=== PATIENT | female | born 1945 | race Caucasian/White ===

== ENCOUNTER 2018-05-06 12:30 | Emergency (ER) | payer MEDICARE ==
--- NOTE | 2018-05-06 14:17 | CT ---
NONCONTRAST CT HEAD: 05/06/2018 HISTORY: Headache. Patient recently placed on Eliquis. COMPARISON: None available. FINDINGS: There is no evidence of a hemorrhage, acute infarction, mass effect, or midline shift. The ventricul ar system is normal in size, shape, and position. There is mild cerebral volume loss, not unexpected for the patient's age. The visualized paranasal sinuses and mastoid air cells are clear. The delonte rial structures are intact. Prominent vascular calcifications are seen in the carotid siphons bilate rally. IMPRESSION: No acute intracranial abnormality is demonstrated. POS: [facility]
--- NOTE | 2018-05-08 16:38 | EKG ---
Test Reason : Blood Pressure : / mmHG Vent. Rate : 087 BPM Atrial Rate : 087 BPM P-R Int : 130 ms QRS Dur : 088 ms QT Int : 368 ms P-R-T Axes : 070 007 051 degrees QTc Int : 442 ms Normal sinus rhythm Nonspecific T wave abnormality Abnormal ECG Confirmed by IRVING CHRISTIE ([id number]), development editor KIKO ELIZABETH ([id number] on 05/08/2018 4:37:27 PM Referred By: Confirmed By:IRVING CHRISTIE
== END 2018-05-06 14:10 | disposition home or self-care (01) ==
LOC: ERS 12:30
DX: I82.4Z1 Acute embolism and thrombosis of unspecified deep veins of right distal lower extremity (principal); I26.99 Other pulmonary embolism without acute cor pulmonale; R51 Headache; J45.909 Unspecified asthma, uncomplicated; Z79.899 Other long term (current) drug therapy
CPT/HCPCS: 70450; 93005

== ENCOUNTER 2019-02-14 04:02 | Emergency (ER) | payer MEDICARE ==
[2019-02-14] MEDS ORDERED: Ondansetron PF 4 MG/2 ML Vial ONE (04:11)
[2019-02-14 04:28] LABS: #Lymphocytes 0.8 thou/uL (1.20-3.40); #Monocytes 0.5 thou/uL (0.11-0.59); #Neutrophils 6.4 thou/uL (1.40-6.50); %Basophils 0.5 % (0.0-1.0); %Eosinophils 0.1 % (0.0-10.0); %Lymphocytes 10.6 % (21.0-51.0); %Monocytes 6.7 % (0.0-10.0); %Neutrophils 82.1 % (42.0-75.0); Hemoglobin 14.6 g/dL (12.0-16.0); Mean Corpuscular HGB CONC 33.7 g/dL (32.0-36.0); Mean Corpuscular Hemoglobin 31.8 pg (27.0-31.0); Mean Corpuscular Volume 94.5 fL (78.0-98.0); Mean Platelet Volume 7.8 fL (7.4-10.4); Platelet Count 217 thou/uL (130-400); RBC Distribution Width 12.9 % (11.5-14.5); White Blood Cell (WBC) Count 7.7 thou/uL (4.8-10.8)
[2019-02-14 04:55] LABS: ALT (SGPT) 12 U/L (8-55); AST (SGOT) 18 U/L (5-34); Alkaline Phosphatase 101 U/L (40-150); Anion Gap 16 mmol/L (10-20); BUN (Urea Nitrogen) 7 mg/dL (9.8-20.1); Bilirubin, Total 0.5 mg/dL (0.2-1.2); Calc. Creatinine Clearance 0 mL/min (70-130); Calcium 10.5 mg/dL (7.8-10.44); Carbon Dioxide 19 mmol/L (23-31); Chloride 110 mmol/L (98-107); Estimated GFR-MDRD 64; Globulin 2.4 g/dL (2.4-3.5); Glucose 119 mg/dL (83-110); Protein, Total 7.4 g/dL (6.0-8.3); Sodium 141 mmol/L (136-145)
[2019-02-14 06:08] LABS: Bilirubin Small (Negative); Blood, Urine Trace (Negative); Clarity CLEAR (Clear); Glucose, Urine (Dipstick) Negative (Negative); Leukocyte Negative (Negative); Nitrite Negative (Negative); Protein, Urine (Dipstick) 30 mg/dL (Neg-Trace); Specific Gravity, Urine 1.022 (1.002-1.036); Urobilinogen 0.2 mg/dL (0.2-1.0); pH, Urine 5.5 (5.0-9.0)
[2019-02-14 06:11] LABS: Bacteria/HPF None Seen HPF (None Seen); Hyaline Casts/LPF 0-3 HYALINE CAST LPF (0-3 Hyaline); Pathc Cast-AUWi Flag 0.13 (0-2.49); RBC/HPF 0-3 HPF (0-3); Squamous Epithelial 0-3 HPF (0-3); WBC/HPF 0-3 HPF (0-3)
--- NOTE | 2019-02-14 09:05 | RAD ---
AP VIEW OF THE PELVIS: INDICATION: Hip pain and vomiting. FINDINGS: There is mild degenerative disk disease of the lower lumbar spine and SI joints. No acute fracture o r subluxation is evident. The visualized bowel gas pattern is unremarkable-appearing. IMPRESSION: No acute osseous abnormality. POS: [facility]
== END 2019-02-14 06:58 | disposition home or self-care (01) ==
LOC: ERS 04:02
DX: R11.2 Nausea with vomiting, unspecified (principal); R25.1 Tremor, unspecified; M25.551 Pain in right hip; M25.552 Pain in left hip; I10 Essential (primary) hypertension; F41.9 Anxiety disorder, unspecified; J45.909 Unspecified asthma, uncomplicated; Z86.718 Personal history of other venous thrombosis and embolism; Z79.899 Other long term (current) drug therapy; Z79.01 Long term (current) use of anticoagulants
CPT/HCPCS: 36415; 72170; 80053; 81003; 81015; 84484; 85025; 87086; A4353; J2405

== ENCOUNTER 2019-02-14 15:27 | Emergency (ER) | payer MEDICARE ==
--- NOTE | 2019-02-14 15:52 | CT ---
HEAD CT WITHOUT CONTRAST: Date: 02/14/19 HISTORY: Altered mental status. COMPARISON: No parenchymal hemorrhage or extra-axial hematoma. No midline shift. Basilar cisterns are patent. Bra in volume is age-appropriate. Cortical adams-white matter differentiation is preserved. No hydrocephal us. Intact calvarium. Adequate aeration of the sinuses and mastoid air cells. IMPRESSION: No acute intracranial process. POS: [facility]
[2019-02-14 16:04] LABS: #Lymphocytes 0.6 thou/uL (1.20-3.40); #Monocytes 0.5 thou/uL (0.11-0.59); #Neutrophils 6.3 thou/uL (1.40-6.50); %Basophils 0.4 % (0.0-1.0); %Eosinophils 0.2 % (0.0-10.0); %Lymphocytes 7.6 % (21.0-51.0); %Monocytes 6.2 % (0.0-10.0); %Neutrophils 85.6 % (42.0-75.0); Hemoglobin 13.2 g/dL (12.0-16.0); Mean Corpuscular HGB CONC 33.3 g/dL (32.0-36.0); Mean Corpuscular Hemoglobin 31.6 pg (27.0-31.0); Mean Corpuscular Volume 94.9 fL (78.0-98.0); Mean Platelet Volume 7.7 fL (7.4-10.4); Platelet Count 185 thou/uL (130-400); Red Blood Cell (RBC) Count 4.19 mill/uL (4.20-5.40); White Blood Cell (WBC) Count 7.3 thou/uL (4.8-10.8)
[2019-02-14 16:28] LABS: ALT (SGPT) 9 U/L (8-55); AST (SGOT) 17 U/L (5-34); Albumin 4.7 g/dL (3.4-4.8); Alkaline Phosphatase 92 U/L (40-150); Anion Gap 17 mmol/L (10-20); BUN (Urea Nitrogen) 6 mg/dL (9.8-20.1); Bilirubin, Total 0.5 mg/dL (0.2-1.2); CK (CPK) 203 U/L (29-168); Calc. Creatinine Clearance 0 mL/min (70-130); Calcium 9.8 mg/dL (7.8-10.44); Carbon Dioxide 19 mmol/L (23-31); Chloride 110 mmol/L (98-107); Estimated GFR-MDRD 69; Glucose 132 mg/dL (83-110); Potassium 3.8 mmol/L (3.5-5.1); Protein, Total 6.7 g/dL (6.0-8.3); Sodium 142 mmol/L (136-145)
[2019-02-14] MEDS ORDERED: Lorazepam 2 MG/ML VIAL ONE (16:54)
--- NOTE | 2019-02-19 11:21 | EKG ---
Test Reason : Blood Pressure : / mmHG Vent. Rate : 118 BPM Atrial Rate : 118 BPM P-R Int : 140 ms QRS Dur : 110 ms QT Int : 440 ms P-R-T Axes : 134 094 143 degrees QTc Int : 616 ms Suspect arm lead reversal, interpretation assumes no reversal Sinus rhythm Lateral infarct , age undetermined Inferior-posterior infarct , age undetermined Abnormal ECG Tremor artifact Confirmed by RAVEN TERRY, KANIKA Singh ([id number]), international editorial producer HUSSEIN FIORE ([id number]) on 02/19/2019 11:20:46 AM Referred By: Confirmed By:KANIKA CARBAJAL MD
== END 2019-02-14 18:53 ==
LOC: ERS 15:27
DX: F41.9 Anxiety disorder, unspecified (principal); R51 Headache; Z86.718 Personal history of other venous thrombosis and embolism; F32.9 Major depressive disorder, single episode, unspecified
CPT/HCPCS: 36415; 51701; 70450; 72170; 80053; 81003; 81015; 82550; 84484; 85025; 87086; 93005; 96361; 96374; A4353; J2060; J2405

== ENCOUNTER 2019-03-27 08:16 | Emergency (ER) | payer MEDICARE ==
[2019-03-27] MEDS ORDERED: Lorazepam 2 MG/ML VIAL ONE ×2 (08:26→09:18)
[2019-03-27] MEDS ORDERED: Ondansetron PF 4 MG/2 ML Vial ONE (08:27)
[2019-03-27 08:50] LABS: #Monocytes 0.6 thou/uL (0.11-0.59); #Neutrophils 6.9 thou/uL (1.40-6.50); %Basophils 0.5 % (0.0-1.0); %Eosinophils 0.2 % (0.0-10.0); %Lymphocytes 11.9 % (21.0-51.0); %Monocytes 7.2 % (0.0-10.0); %Neutrophils 80.2 % (42.0-75.0); Hemoglobin 15.1 g/dL (12.0-16.0); Mean Corpuscular HGB CONC 32.4 g/dL (32.0-36.0); Mean Corpuscular Hemoglobin 30.6 pg (27.0-31.0); Mean Corpuscular Volume 94.5 fL (78.0-98.0); Mean Platelet Volume 8.7 fL (7.4-10.4); Platelet Count 208 thou/uL (130-400); RBC Distribution Width 13.2 % (11.5-14.5); Red Blood Cell (RBC) Count 4.95 mill/uL (4.20-5.40); White Blood Cell (WBC) Count 8.6 thou/uL (4.8-10.8)
[2019-03-27 09:10] LABS: ALT (SGPT) 9 U/L (8-55); AST (SGOT) 20 U/L (5-34); Alkaline Phosphatase 105 U/L (40-150); Anion Gap 20 mmol/L (10-20); BUN (Urea Nitrogen) 5 mg/dL (9.8-20.1); Bilirubin, Total 0.7 mg/dL (0.2-1.2); Calc. Creatinine Clearance 0 mL/min (70-130); Calcium 10.4 mg/dL (7.8-10.44); Carbon Dioxide 17 mmol/L (23-31); Chloride 102 mmol/L (98-107); Estimated GFR-MDRD 72; Globulin 2.8 g/dL (2.4-3.5); Glucose 116 mg/dL (83-110); Lipase 29 U/L (8-78); Potassium 3.8 mmol/L (3.5-5.1); Protein, Total 7.8 g/dL (6.0-8.3); Sodium 135 mmol/L (136-145)
[2019-03-27] MEDS ORDERED: Lorazepam 1 MG TAB ONE (13:39)
== END 2019-03-27 13:58 | disposition home or self-care (01) ==
LOC: ERS 08:16
DX: F13.239 Sedative, hypnotic or anxiolytic dependence with withdrawal, unspecified (principal); J45.909 Unspecified asthma, uncomplicated; Z86.73 Personal history of transient ischemic attack (TIA), and cerebral infarction without residual deficits; F32.9 Major depressive disorder, single episode, unspecified; F41.9 Anxiety disorder, unspecified; F43.10 Post-traumatic stress disorder, unspecified
CPT/HCPCS: 80053; 83690; 84484; 85025; 93005; 96361; 96372; 96374; 96375; 96376; J0500; J2060; J2405

== ENCOUNTER 2019-03-30 03:26 | Inpatient (IN) | payer MEDICARE ==
[2019-03-30] MEDS ORDERED: Ondansetron PF 4 MG/2 ML Vial ONE (03:42)
[2019-03-30] MEDS ORDERED: Lorazepam 2 MG/ML VIAL ONE (04:10)
[2019-03-30 04:12] LABS: #Lymphocytes 0.5 thou/uL (1.20-3.40); #Monocytes 0.3 thou/uL (0.11-0.59); #Neutrophils 2.9 thou/uL (1.40-6.50); %Basophils 0.6 % (0.0-1.0); %Eosinophils 1.1 % (0.0-10.0); %Lymphocytes 13.8 % (21.0-51.0); %Monocytes 8.7 % (0.0-10.0); %Neutrophils 75.8 % (42.0-75.0); Hemoglobin 12.9 g/dL (12.0-16.0); Mean Corpuscular HGB CONC 33.7 g/dL (32.0-36.0); Mean Corpuscular Hemoglobin 31.9 pg (27.0-31.0); Mean Corpuscular Volume 94.4 fL (78.0-98.0); Mean Platelet Volume 8.9 fL (7.4-10.4); Platelet Count 119 thou/uL (130-400); Platelet Morphology Comment Appears Decreased; RBC Distribution Width 13.2 % (11.5-14.5); Red Blood Cell (RBC) Count 4.06 mill/uL (4.20-5.40); White Blood Cell (WBC) Count 3.8 thou/uL (4.8-10.8)
[2019-03-30 04:14] LABS: ALT (SGPT) 265 U/L (8-55); AST (SGOT) 545 U/L (5-34); Albumin 3.9 g/dL (3.4-4.8); Alkaline Phosphatase 119 U/L (40-150); Anion Gap 16 mmol/L (10-20); BUN (Urea Nitrogen) 5 mg/dL (9.8-20.1); Calc. Creatinine Clearance 0 mL/min (70-130); Calcium 9.7 mg/dL (7.8-10.44); Carbon Dioxide 23 mmol/L (23-31); Chloride 99 mmol/L (98-107); Estimated GFR-MDRD 59; Globulin 2.1 g/dL (2.4-3.5); Glucose 138 mg/dL (83-110); Lipase 44 U/L (8-78); Sodium 135 mmol/L (136-145)
[2019-03-30 04:19] LABS: Potassium 2.9 mmol/L (3.5-5.1)
[2019-03-30 05:01] LABS: Acetaminophen Less than 6.0 mcg/mL (10.0-30.0); Alcohol Less than 10 mg/dL (Less than 10); Salicylate Less than 8.0 mg/dL (15.0-30.0)
[2019-03-30 05:08] LABS: Bacteria/HPF None Seen HPF (None Seen); Bilirubin Negative (Negative); Blood, Urine Trace (Negative); Clarity Turbid (Clear); Glucose, Urine (Dipstick) Normal (Negative); Leukocyte 250 Leu/uL (Negative); Nitrite Negative (Negative); Protein, Urine (Dipstick) 20 mg/dL (Neg-Trace); RBC/HPF 0-3 HPF (0-3); Squamous Epithelial 0-3 HPF (0-3); Urobilinogen Normal mg/dL (Less than 2)
[2019-03-30] MEDS ORDERED: cefOXitin 2 GM VIAL ONE (05:28)
[2019-03-30] MEDS ORDERED: Potassium Chloride 20 MEQ in Premix Bag 1 BAG IVPB SCH (05:45)
[2019-03-30] MEDS ORDERED: Ondansetron ODT 4 MG TAB SL PRN (06:26)
[2019-03-30] MEDS ORDERED: Ondansetron PF 4 MG/2 ML Vial IVP PRN (06:26)
[2019-03-30] MEDS ORDERED: Dextrose 5 % And 0.9 % NaCl 1,000 ML IV SCH (06:30)
[2019-03-30 06:37] VITALS: BMI 24.1
--- NOTE | 2019-03-30 07:00 | ULT ---
GALLBLADDER ULTRASOUND: INDICATIONS: Right upper quadrant abdominal pain, progressive in intensity, with nausea and vomiting. FINDINGS: There is shadowing cholelithiasis, superimposed upon low level echoes that indicate gallbladder sludg e. The gallbladder is moderately distended with mild wall thickening, measuring slightly greater brain n 3 mm. Finney sign is reported as positive. The common duct is borderline for the patient's age, a t 7 mm. No focal hepatic lesion or evidence of ascites. IMPRESSION: 1. Cholelithiasis and gallbladder sludge. There is mild wall thickening and a positive Finney sign is reported. Correlate for evidence of acute cholecystitis. 2. Borderline size common duct. Correlate with biliary laboratory values. POS: [facility]
[2019-03-30] MEDS ORDERED: Diabetic Tussin 200 MG/10 ML UDCUP PO PRN (08:08)
[2019-03-30] MEDS ORDERED: Loperamide HCl 2 MG CAP PO PRN (08:08)
[2019-03-30] MEDS ORDERED: Bisacodyl 10 MG SUPP PR PRN (08:08)
[2019-03-30] MEDS ORDERED: Zolpidem Tartrate 5 MG TAB PO PRN (08:08)
[2019-03-30] MEDS ORDERED: Loratadine 10 MG TAB PO PRN (08:08)
[2019-03-30] MEDS ORDERED: Calcium Carbonate 500 MG ChewTAB PO PRN (08:08)
[2019-03-30] MEDS ORDERED: Sodium Chloride 0.65% Nasal 44 ML BOT EA NARE PRN (08:08)
[2019-03-30] MEDS ORDERED: Cepastat Lozenges 1 LOZ PO PRN (08:08)
[2019-03-30] MEDS ORDERED: hydrALAZINE 20 MG/ML VIAL SLOW IVP PRN (08:08)
[2019-03-30] MEDS ORDERED: Senokot S 8.6-50 MG TAB PO PRN (08:08)
[2019-03-30] MEDS ORDERED: Sodium Chloride 0.9% 1,000 ML IV SCH (08:15)
[2019-03-30] MEDS: Famotidine 20 MG TAB PO SCH (08:45)
[2019-03-30] MEDS: Famotidine/PF 20 mg/2ml Vial SLOW IVP SCH ×2 (08:45→21:32)
[2019-03-30] MEDS ORDERED: Enoxaparin Sodium 40 MG/0.4 ML SYRINGE SC SCH (09:00)
[2019-03-30] MEDS: cefTRIAXone\\ROCEPHIN 1 GM in Sodium Chloride 0.9% 100 ML IVPB SCH (10:00)
--- NOTE | 2019-03-30 12:16 | HP ---
PRIMARY CARE PHYSICIAN: Rob Yanes MD REASON FOR ADMISSION: Right upper quadrant pain, abnormal LFT. HISTORY OF PRESENT ILLNESS: A 73-year-old female who came to emergency room last night with complaint of right upper quadrant pain. She was having generalized weakness. She had episode of nausea and vomiting at home. She has this pain for last couple of days. In past, she never had any dyspepsia symptoms with food. She denied any bloating or abdominal discomfort after food in the past. She did not have any fever or chills at home, but she was feeling more fatigued and tired. She came to emergency room. She had abdominal ultrasound, which showed findings suggestive of a cholecystitis. She also found with cholelithiasis and gallbladder sludge. Her LFT was abnormal. The patient was admitted to surgical floor. When I saw this patient, at that time, the patient was having relatively less frequent abdominal pain and predominantly she reported to me on lower quadrant rather than upper quadrant. She does not have any constipation or diarrhea. She denies any UTI symptoms. She denies any fever or chills. REVIEW OF SYSTEMS: CONSTITUTIONAL: Negative for weight loss or gain, ability to conduct usual activities. SKIN: Negative for rash, itching. EYES: Negative for double vision, pain. ENT/MOUTH: Negative for nose bleeding, neck stiffness, pain, tenderness. CARDIOVASCULAR: Negative for palpitations, dyspnea on exertion, orthopnea. RESPIRATORY: Negative for shortness of breath, wheezing, cough, hemoptysis, fever or night sweats. GASTROINTESTINAL: Negative for poor appetite, abdominal pain, heartburn, nausea, vomiting, constipation, or diarrhea. GENITOURINARY: Negative for urgency, frequency, dysuria, nocturia. MUSCULOSKELETAL: Negative for pain, swelling. NEUROLOGIC/PSYCHIATRIC: Negative for anxiety, depression. ALLERGY/IMMUNOLOGIC: Negative for skin rash, bleeding tendency. Please see my HPI for pertinent positives and negatives. All other review of systems reviewed and negative except as mentioned in HPI. PAST MEDICAL HISTORY: Asthma, benign essential tremor, history of left lower extremity DVT and pulmonary embolism in the past. PAST SURGICAL HISTORY: Tonsillectomy, bilateral breast reduction, mammoplasty, and hysterectomy. PAST PSYCHIATRIC HISTORY: Anxiety, depression, and posttraumatic stress disorder. SOCIAL HISTORY: The patient is , lives at home with family. No history of tobacco, alcohol, or illicit drug abuse. FAMILY HISTORY: No strong family history of premature coronary artery disease, stroke, or cancer. ALLERGIES: CODEINE, DARVON, DEMEROL, EPINEPHRINE, IODINE, AND PHENERGAN. CURRENT HOME MEDICATIONS: 1. Xanax 1 mg twice daily. 2. Restoril 15 mg at bedtime p.r.n. 3. Trazodone 50 mg at bedtime. 4. Topamax 200 mg twice daily. 5. Seroquel 25 mg twice daily. 6. Venlafaxine 75 mg daily. EMERGENCY ROOM COURSE: The patient has received potassium chloride, Mefoxin, Ativan 1 mg, IV fluid, and Zofran. PHYSICAL EXAMINATION: VITAL SIGNS: On arrival, blood pressure 99/54, pulse 63, respiratory rate 18, temperature 98.2, and saturation 100% on room air. Weight 61 kg. GENERAL: The patient is currently alert, awake, no obvious acute distress. HEENT: Head; normocephalic and atraumatic. Eyes; pupils are round and reactive to light. Extraocular muscle intact. ENT, oropharynx within normal limits. Moist mucous membranes. No oral lesion. No pharyngeal erythema. No exudate. NECK: Supple. No JVD. No thyromegaly. No carotid bruit. No jugular venous distention. LUNGS: Clear to auscultation without any rhonchi or rales. CARDIAC: S1 and S2 regular. No murmur. No gallop. No rub. ABDOMEN: The patient does have vague abdominal discomfort on lower part as well as in the right upper quadrant. BACK: Unremarkable. No CVA tenderness. EXTREMITIES: Upper extremities passive movement of all joints are normal. Lower extremity, no edema. Good distal pulsation. SKIN: No skin rash. HEMATOLOGICAL SYSTEM: No lymphadenopathy. NEUROLOGIC: Nonfocal examination. SIGNIFICANT LABORATORY DATA: EKG showing sinus bradycardia, nonspecific ST-T changes. Abdominal ultrasound showing cholelithiasis, gallbladder wall thickening, CBD 7 mm. ASSESSMENT AND PLAN: 1. Acute cholecystitis. The patient has right upper quadrant pain, abnormal LFT with CBD upper limit of normal. At this point, suspected for acute cholecystitis. General Surgery is consulted. The patient may need HIDA scan to confirm the diagnosis. We will continue with empiric antibiotic therapy with Rocephin and levofloxacin and continue with IV fluid. 2. Hypokalemia. The patient is given potassium supplementation in the emergency room. We will replace potassium through IV fluid and will repeat a BMP tomorrow. 3. Abnormal LFT, likely related with acute cholecystitis. We will repeat LFT tomorrow. We will check hepatitis profile tomorrow. 4. Leukopenia and thrombocytopenia. We will repeat CBC tomorrow. 5. Anxiety, depression, and posttraumatic stress disorder. We will continue the patient and psychiatric medication while in hospital. 6. Deep venous thrombosis prophylaxis. Lovenox 40 mg subcu daily. 7. Gastrointestinal prophylaxis. Pepcid 20 mg p.o. or IV b.i.d. CODE STATUS: The patient is full code. The patient does not have any surrogate decision maker. DISPOSITION PLAN: Based on clinical course. We are expecting the patient's stay in hospital more than 2 midnights. Plan of care discussed with the patient in detail. Job ID: [id number]
[2019-03-30] MEDS ORDERED: Sodium Chloride 0.9% 10 ML ONE (14:01)
[2019-03-30] MEDS ORDERED: Morphine 2 MG/ML SYRINGE ONE (14:01)
--- NOTE | 2019-03-30 14:52 | NM ---
HEPATOBILIARY SCAN: HISTORY:Right upper quadrant abdominal pain. RADIOPHARMACEUTICAL: 4.5 mCi Technetium 99m Mebrofenin injected intravenously. The patient pretreated with 1.2 mcg of CCK IV 30 minutes prior to injection of the radiopharmaceutical. After 1 hour of imaging and no visualization of the gallbladder, 2 mg of IV morphine sulfate was administered. An add itional 30 minutes of imaging was then performed.. FINDINGS: There is expected uptake of the radiotracer, blood pool within the liver parenchyma and visualization of portions of the proximal common bile duct. Very limited bowel activity is seen. Gallbladder activity was not demonstrated with the first 60 minutes imaging nor following the administration of I V morphine sulfate an additional 30 minutes of imaging. IMPRESSION: 1. Nonvisualization of the gallbladder is suspicious for acute cholecystitis 2. Limited visualization of bowel activity with the radiotracer. Choledocholithiasis cannot be entire ly excluded. 3. Findings were called to RUBÉN Cooper at 2:45 PM on March 30, 2019.
--- NOTE | 2019-03-30 17:04 | CON ---
DATE OF CONSULTATION: 03/30/2019 REQUESTING PHYSICIAN: Dr. Calixto Hernandez. HISTORY OF PRESENT ILLNESS: This is a 73-year-old woman, who presented to the emergency department last night with complaint of right upper quadrant abdominal pain of 2 days duration. It is associated with generalized weakness of almost one week now. The patient endorsed multiple episodes of nonbilious, nonbloody emesis. She denies any diarrhea. She denies any fever, however, is reporting some new onset chills since morning. She reports an 80-pound weight loss, which upon further questioning does not make much sense as the patient reports weighing 90 pounds last week and now 130 pounds today by her own account. She seemed a little confused. Majority of history is obtained from chart review. PAST MEDICAL HISTORY: Includes chronic anxiety and depression, and posttraumatic stress disorder. PAST SURGICAL HISTORY: Pertinent for childhood tonsillectomy and adenoidectomy, total abdominal hysterectomy, bilateral mammoplasties. FAMILY HISTORY: Noncontributory for this patient's age. PRE-HOSPITALIZATION MEDICATIONS: Include: 1. Effexor 75 mg p.o. daily. 2. Seroquel 75 mg p.o. at bedtime. 3. Alprazolam XR 1 mg p.o. b.i.d. 4. Temazepam 15 mg p.o. at bedtime. 5. Topamax 200 mg p.o. b.i.d. ALLERGIES: NUMEROUS AND INCLUDES CODEINE, DEMEROL, IODINE, PHENERGAN, AND EPINEPHRINE. REVIEW OF SYSTEMS: Essentially unremarkable except as stated in past medical history and chief complaint. PHYSICAL EXAMINATION: GENERAL: Reveals a 73-year-old normally developed woman, who is otherwise slightly confused, but interactive with a [place] Coma Scale of E4, V4, M6. She is in no acute distress at time of my evaluation. VITAL SIGNS: Include blood pressure 115/57, pulse 73, respiratory rate is 16, temperature 98.2 degrees Fahrenheit, oxygen saturation is 98% on room air. HEENT: Reveals normocephalic and atraumatic. Pupils equal, round, reactive to light and accommodation. HEART: Reveals regular rate and rhythm. No murmurs or gallops auscultated. LUNGS: Clear to auscultation bilaterally. Breathing, regular and nonlabored. ABDOMEN: Soft with moderate tenderness to palpation which is worse in the infraumbilical position. Her bladder was palpated and tender below the umbilicus. A bladder scan was obtained at that time as part of my examination documented 700 mL and a Fragoso catheter was inserted immediately returning a L of amauri colored urine. EXTREMITIES: Reveal 2+ radial and pedal pulses bilaterally. No ankle edema is present. NEUROLOGIC: Reveals no focal deficits present. LABORATORY FINDINGS: Include a CBC with 3800 white blood cells, hemoglobin and hematocrit 12.9 and 38.4 respectively. Platelet count is 119,000. Metabolic profile; sodium 135, potassium is 2.9, chloride is 99, bicarb is 23, BUN is 5, creatinine is 0.93, glucose is 138, magnesium is 1.9, total bilirubin is 2.0, AST and ALT are elevated at 545 and 265 respectively. Serum lipase is normal at 44. I have personally reviewed the abdominal ultrasound, which was obtained, which reveals multiple intraluminal gallstones and biliary sludge. There is gallbladder wall thickening. There is no pericholecystic fluid present. The common bile duct is upper limit of normal for this patient's age at 7 mm in diameter. I have also reviewed the HIDA scan, which fails to visualize the gallbladder. There is only a trace activity in the small bowel. IMPRESSION: Acute cholecystitis with probable choledocholithiasis. Given the patient's clinical examination, I am concerned also about cholangitis. RECOMMENDATIONS: 1. Gastroenterology to evaluate the patient for possible ERCP. 2. We will proceed with laparoscopic cholecystectomy after GI evaluation. Above findings and plan has been discussed with the patient who indicates understanding information given. I have answered her questions. Thank you again, Dr. Hernandez, for allowing me the opportunity to participate in the care of this patient. Job ID: [id number]
[2019-03-30] MEDS: Acetaminophen 325 MG TAB PO PRN (19:12)
[2019-03-30] MEDS: 1/2 NS w/KCL 20 mEq 1,000 ML IV SCH (19:13)
[2019-03-30] MEDS ORDERED: (Alprazolam [Alprazolam Xr] 1 MG) PO SCH (21:00)
[2019-03-30] MEDS: Enoxaparin Sodium 40 MG/0.4 ML SYRINGE SC SCH (21:31)
[2019-03-30] MEDS: Topiramate 100 MG TAB PO SCH (21:35)
[2019-03-31] MEDS: Famotidine 20 MG TAB PO SCH ×3 (00:28→20:48)
[2019-03-31] MEDS: 1/2 NS w/KCL 20 mEq 1,000 ML IV SCH ×2 (01:08→18:11)
[2019-03-31 06:35] LABS: #Eosinphils 0.1 thou/uL (0.0-0.7); #Lymphocytes 1.4 thou/uL (1.20-3.40); #Monocytes 0.3 thou/uL (0.11-0.59); #Neutrophils 1.3 thou/uL (1.40-6.50); %Basophils 1.2 % (0.0-1.0); %Eosinophils 2.6 % (0.0-10.0); %Lymphocytes 45.6 % (21.0-51.0); %Monocytes 8.5 % (0.0-10.0); Hemoglobin 12.9 g/dL (12.0-16.0); Mean Corpuscular HGB CONC 33.4 g/dL (32.0-36.0); Mean Corpuscular Hemoglobin 31.8 pg (27.0-31.0); Mean Corpuscular Volume 95.3 fL (78.0-98.0); Mean Platelet Volume 9.3 fL (7.4-10.4); Platelet Count 129 thou/uL (130-400); RBC Distribution Width 13.5 % (11.5-14.5); Red Blood Cell (RBC) Count 4.06 mill/uL (4.20-5.40); White Blood Cell (WBC) Count 3.2 thou/uL (4.8-10.8)
[2019-03-31 06:55] LABS: ALT (SGPT) 565 U/L (8-55); AST (SGOT) 649 U/L (5-34); Albumin 3.8 g/dL (3.4-4.8); Alkaline Phosphatase 166 U/L (40-150); Bilirubin, Direct 1.3 mg/dL (0.1-0.3); Bilirubin, Total 1.8 mg/dL (0.2-1.2); Protein, Total 5.9 g/dL (6.0-8.3)
[2019-03-31 06:57] LABS: ALT (SGPT) 566 U/L (8-55); AST (SGOT) 660 U/L (5-34); Albumin 3.8 g/dL (3.4-4.8); Alkaline Phosphatase 168 U/L (40-150); Anion Gap 11 mmol/L (10-20); BUN (Urea Nitrogen) Less than 4 mg/dL (9.8-20.1); Bilirubin, Total 1.8 mg/dL (0.2-1.2); Calc. Creatinine Clearance 67 mL/min (70-130); Calcium 9.5 mg/dL (7.8-10.44); Carbon Dioxide 26 mmol/L (23-31); Chloride 107 mmol/L (98-107); Estimated GFR-MDRD 74; Globulin 2.2 g/dL (2.4-3.5); Glucose 89 mg/dL (83-110); Lipase 27 U/L (8-78); Sodium 141 mmol/L (136-145)
[2019-03-31 07:16] LABS: HBCM Index 0.05 S/CO (0-0.79); HBSAg Index 0.23 S/CO (0-0.99); Hep A IgM AB Non-Reactive (NonReactive); Hep A IgM S/CO 0.08 S/CO (0-0.79); Hep B Surf Ag Non-Reactive S/CO (NonReactive); Hep C IgG Ab Non-Reactive (NonReactive); Hepatitis B Core IgM Abs Non-Reactive (NonReactive)
--- NOTE | 2019-03-31 08:25 | CON ---
DATE OF CONSULTATION: REFERRING PHYSICIAN: Dr. Jasper Hicks-Dr. Calixto Hernandez. REASON FOR CONSULTATION: Abdominal pain, nausea, and history of chills. HISTORY OF PRESENT ILLNESS: Ms. eLncho Thorpe is a very pleasant 73-year-old, fragile-looking, elderly female hospitalized because of abdominal pain with some nausea. Apparently, she has had abdominal pain over the last 3 days. The pain is over the right upper quadrant and epigastric area. The pain was accompanied by nausea and vomiting. She has had no fever, but she gives history of some chills off and on over the last 2 weeks. Two weeks ago, she had abdominal pain, the pain actually started about 2 or 3 days ago. She came to the ER and was found to have evidence of gallstones and the common bile duct actually appears normal at 7 mm. This actually is borderline. The patient had HIDA scan, the HIDA scan shows the radionuclide is found passing into the small bowel. The findings suggest acute cholecystitis. There is concern of possibly having a common bile duct stone as the liver function tests are abnormal. The patient at the present time actually appears very comfortable, in no acute distress. In fact, she never had fever except for some chills off and on over the last 2 weeks. Probably about 2 or 3 days ago, she had abdominal pain. No similar episodes in the past. Her bowel movements are fairly regular. No hematochezia. No melena. She has no relevant history. ALLERGIES: CODEINE, DARVON, DEMEROL, EPINEPHRINE, IODINE, AND PHENERGAN. SOCIAL HISTORY: The patient is single. She lives in [facility]. She has a daughter who lives here locally. She does not smoke or drink alcohol. MEDICAL ILLNESSES: 1. Asthma. 2. Benign essential tremor. 3. History of left lower extremity DVT and pulmonary embolism in the past. 4. Admits that she is having a mild memory impairment at the present time. PAST SURGICAL HISTORY: 1. Tonsillectomy. 2. Bilateral breast reduction. 3. Mammoplasty. 4. Hysterectomy. FAMILY HISTORY: No family history of any cancer, heart disease, or any stroke. MEDICATIONS: Medication list reviewed. Medications include: 1. Xanax 1 mg twice a day. 2. Restoril 15 mg p.o. at bedtime. 3. Trazodone 50 at bedtime. 4. Topamax 200 mg twice a day. 5. Seroquel 25 mg twice a day daily. 6. Venlafaxine 75 mg once a day. REVIEW OF SYSTEMS: A 10-point system reviewed; [employer]: No chronic headache. No seizure disorder. No TIA. No syncope. EYES: No impaired vision. No diplopia. ENT: Unremarkable. NECK: No neck stiffness or pain. CARDIOVASCULAR: No chest pain. No palpitation. No dyspnea, orthopnea, or PND. RESPIRATORY: History of bronchial asthma, some coughing and wheezing off and on. GI: As in history of present illness. : No dysuria, hematuria, or frequent urination. MUSCULOSKELETAL: Unremarkable. NEUROLOGIC: Unremarkable. ENDOCRINE: Unremarkable. PHYSICAL EXAMINATION: GENERAL: She is thin built, appears very comfortable. She is in no distress. VITAL SIGNS: She is afebrile. Pulse is 86, blood pressure 130/73. HEENT: Conjunctiva intact. NECK: Supple. No adenitis or thyromegaly noted. CARDIOVASCULAR: First and second heart sounds normal. LUNGS: Clear to auscultation. ABDOMEN: Soft. Abdomen is nondistended. Abdomen is tender over the right upper quadrant epigastric area and also slightly over the left lower quadrant. There is no rebound or guarding. No organomegaly or masses. EXTREMITIES: Reveal no edema. LABORATORY DATA: CBC; WBC 3800, hemoglobin 12.9, hematocrit is 38.4, MCV 94.4, platelet count is 119,000, polymorphs 75, lymphocytes 13, monocytes 8. Chemistry panel shows sodium 135, potassium 2.9, chloride 99, bicarbonate 23, BUN is 5, creatinine is 0.93, glucose is 138, calcium 9.7, bilirubin 2 mg%, AST 545, ALT 265, alkaline phosphatase 119, albumin 3.9. Abdominal sonogram shows gallstones and the common bile duct is at the upper limit of normal 7 mm. IMPRESSION: 1. Abdominal pain, nausea, and vomiting, most likely from cholecystitis. Her liver function tests are elevated, which possibly indicate she has choledocholithiasis. She has no fever. She has no leukocytosis or bandemia. She has chills of unknown etiology and at the present time, confirmed clinically that she cholangitis. 2. Hypokalemia, needs replacement. I did talk to Ms. Thorpe about the ERCP procedure, risks like bleeding, perforation, pancreatitis, etc. She fully understood this. We will plan for ERCP tomorrow and she will be followed by possibly a laparoscopic cholecystectomy. Job ID: [id number]
[2019-03-31 08:28] LABS: Phosphorus 3.6 mg/dL (2.3-4.7)
[2019-03-31] MEDS ORDERED: Potassium Chloride 20 MEQ in Sodium Chloride 0.9% 250 ML 250 ML IVPB SCH ×2 (08:30→09:30)
[2019-03-31] MEDS: cefTRIAXone\\ROCEPHIN 1 GM in Sodium Chloride 0.9% 100 ML IVPB SCH (08:39)
[2019-03-31] MEDS: Famotidine/PF 20 mg/2ml Vial SLOW IVP SCH ×2 (08:39→20:49)
[2019-03-31] MEDS ORDERED: Fentanyl 100 MCG/2 ML VIAL ONE (11:07)
[2019-03-31] MEDS ORDERED: Indomethacin 50 MG SUPP ONE (11:07)
[2019-03-31] MEDS ORDERED: Ioversol 68 % 50 ML VIAL ONE (11:09)
[2019-03-31] MEDS ORDERED: Famotidine/PF 20 mg/2ml Vial ONE (11:15)
--- NOTE | 2019-03-31 11:29 | PDOC.PN ---
- Subjective Encounter Start Date: 03/31/19 Encounter Start Time: 07:00 Patient seen and examined. No new complaints. No overnight events - Objective Resuscitation Status - Order Detail: 03/30/19 08:03 Resuscitation Status Routine Resuscitation Status: FULL: Full Resuscitation MAR Reviewed: Yes Vital Signs & Weight: Vital Signs (12 hours) Temp Pulse Resp BP BP Pulse Ox 03/31/19 07:13 98.2 F 87 16 135/75 97 03/30/19 23:33 98.3 F 87 16 148/52 H 96 Weight Weight 140 lb 11.2 oz I&O: 03/30/19 03/31/19 04/01/19 06:59 06:59 06:59 Intake Total 700 Output Total 1050 Balance -350 Result Diagrams: 03/31/19 06:03 03/31/19 06:03 Radiology Reviewed by me: Yes (HIDA scan report noted) Phys Exam - Physical Examination Constitutional: NAD HEENT: PERRLA, moist MMs, sclera anicteric Neck: no JVD, supple Respiratory: no wheezing, no rales, no rhonchi Cardiovascular: RRR, no significant murmur, no rub Gastrointestinal: soft, no distention, positive bowel sounds RUQ tenderness Musculoskeletal: no edema, pulses present Neurological: non-focal, normal sensation, moves all 4 limbs Lymphatic: no nodes Psychiatric: normal affect, A&O x 3 Skin: no rash, normal turgor Dx/Plan (1) Cholelithiasis with acute cholecystitis Code(s): K80.00 - CALCULUS OF GALLBLADDER W ACUTE CHOLECYST W/O OBSTRUCTION Status: Acute Qualifiers: Biliary obstruction: without biliary obstruction Qualified Code(s): K80.00 - Calculus of gallbladder with acute cholecystitis without obstruction (2) Abnormal LFTs Code(s): R94.5 - ABNORMAL RESULTS OF LIVER FUNCTION STUDIES Status: Acute Comment: due to cholecystitis (3) Leucopenia Code(s): D72.819 - DECREASED WHITE BLOOD CELL COUNT, UNSPECIFIED Status: Acute (4) Hypokalemia Code(s): E87.6 - HYPOKALEMIA Status: Acute (5) Anxiety and depression Code(s): F41.9 - ANXIETY DISORDER, UNSPECIFIED; F32.9 - MAJOR DEPRESSIVE DISORDER, SINGLE EPISODE, UNSPECIFIED Status: Chronic - Plan cont current plan of care, continue antibiotics * replace potassium * check phosphorus * continue rocephin and levaquin * surgeon following, may need lap donald * will repeat labs tomorrow * medication reviewed as below * symptomatic treatment. Review of Systems - Review of Systems ENT: negative: Ear Pain, Ear Discharge, Nose Pain, Nose Discharge, Nose Congestion, Mouth Pain, Mouth Swelling, Throat Pain, Throat Swelling, Other Respiratory: negative: Cough, Dry, Shortness of Breath, Hemoptysis, SOB with Excertion, Pleuritic Pain, Sputum, Wheezing Cardiovascular: negative: chest pain, palpitations, orthopnea, paroxysmal nocturnal dyspnea, edema, light headedness, other Gastrointestinal: Nausea, Abdominal Pain. negative: Vomiting, Diarrhea, Constipation, Melena, Hematochezia, Other Genitourinary: negative: Dysuria, Frequency, Incontinence, Hematuria, Retention , Other Musculoskeletal: negative: Neck Pain, Shoulder Pain, Arm Pain, Back Pain, Hand Pain, Leg Pain, Foot Pain, Other Skin: negative: Rash, Lesions, Seth, Bruising, Other - Medications/Allergies Allergies/Adverse Reactions: Allergies Allergy/AdvReac Type Severity Reaction Status Date / Time codeine Allergy Verified 03/30/19 06:38 epinephrine Allergy Verified 03/30/19 06:38 iodine Allergy Verified 03/30/19 06:38 meperidine [From Demerol] Allergy Verified 03/30/19 06:38 phenobarbital Allergy Verified 03/30/19 06:38 promethazine [From Phenergan] Allergy Verified 03/30/19 06:38 propoxyphene [From Darvon] Allergy Verified 03/30/19 06:38 Medications: Current Medications Acetaminophen (Tylenol) 650 mg PO Q4H PRN PRN Reason: Headache/Fever/Mild Pain (1-3) Last Admin: 03/30/19 19:12 Dose: 650 mg Bisacodyl (Dulcolax) 10 mg ME DAILYPRN PRN PRN Reason: Constipation Calcium Carbonate (Tums) 1,000 mg PO Q4H PRN PRN Reason: Heartburn or Indigestion Enoxaparin Sodium (Lovenox) 40 mg SC 2100 THELMA Last Admin: 03/30/19 21:31 Dose: 40 mg Famotidine (Pepcid) 20 mg SLOW IVP Q12HR THELMA Last Admin: 03/31/19 08:39 Dose: 20 mg Famotidine (Pepcid) 20 mg PO BID [facility], [facility] Last Admin: 03/31/19 08:44 Dose: Not Given Guaifenesin (Robitussin Sf) 200 mg PO Q4H PRN PRN Reason: Cough Hydralazine HCl (Apresoline) 10 mg SLOW IVP Q4H PRN PRN Reason: SBP > 180 and HR < 70 Ceftriaxone Sodium 1 gm/ (Sodium Chloride) 100 mls @ 200 mls/hr IVPB Q24HR [facility], [facility] Last Admin: 03/31/19 08:39 Dose: 100 mls Levofloxacin 750 mg/ Device 150 mls @ 100 mls/hr IVPB Q24HR [facility], [facility] Last Admin: 03/30/19 10:03 Dose: 150 mls Potassium Chloride/Sodium Chloride (1/2 Ns W/Kcl 20 Meq) 1,000 mls @ 75 mls/hr IV .[id number] [facility], [facility] Last Admin: 03/31/19 01:08 Dose: Not Given Loperamide HCl (Imodium) 2 mg PO PRN PRN PRN Reason: Diarrhea/Loose Stools Loratadine (Claritin) 10 mg PO DAILYPRN PRN PRN Reason: Sinus Symptoms (Alprazolam [ (Alprazolam Xr] 1 Mg)) 1 mg PO BID [facility] Ondansetron HCl (Zofran Odt) 4 mg PO Q6H PRN PRN Reason: Nausea/Vomiting Ondansetron HCl (Zofran) 4 mg IVP Q6H PRN PRN Reason: Nausea/Vomiting Quetiapine Fumarate (Seroquel) 25 mg PO DAILY [facility] Quetiapine Fumarate (Seroquel) 75 mg PO HS [facility] Last Admin: 03/30/19 21:31 Dose: 75 mg Senna/Docusate Sodium (Senokot S) 2 tab PO BID PRN PRN Reason: Constipation Sodium Chloride ([place] Nasal [place] 0.65%) 0 ml EA NARE QIDPRN PRN PRN Reason: Nasal Congestion Sodium Chloride (Flush - Normal Saline) 10 ml IVF Q12HR [facility], [facility] Last Admin: 03/31/19 08:44 Dose: Not Given Sodium Chloride (Flush - Normal Saline) 10 ml IVF PRN PRN PRN Reason: Saline Flush Temazepam (Restoril) 15 mg PO HS PRN PRN Reason: Insomnia Throat Lozenges (Cepastat Lozenges) 1 kiesha PO Q2H PRN PRN Reason: Sore Throat Topiramate (Topamax) 200 mg PO BID [facility], [facility] Last Admin: 03/30/19 21:35 Dose: 200 mg Trazodone HCl (Desyrel) 50 mg PO HS THELMA Venlafaxine HCl (Effexor Xr) 75 mg PO DAILY THELMA
[2019-03-31] MEDS ORDERED: Bupivacaine/Epinephrine 0.25% 30 ML VIAL ONE (12:23)
--- NOTE | 2019-03-31 13:50 | RAD ---
ERCP: DATE: 03/31/2019 COMPARISON: None. HISTORY: Right upper quadrant pain. FINDINGS: Five images from ERCP provided. There is contrast media within nondilated proximal intrahepatic bilia ry ducts as well as the cystic duct and within the gallbladder. There is contrast media within the common bile duct. On the initial 4 images the distal common bile duct is nonopacified with contrast m edia. This could be related to a filling defect within the distal CBD. The final image demonstrates a balloon inflated within the common bile duct. IMPRESSION: Incomplete opacification of the distal common bile duct which could be secondary to incomplete fillin g or a distal common bile duct stone/filling defect. Correlation with real-time imaging is necessary. The gallbladder fills with contrast media during this exam. Transcribed Date/Time: 03/31/2019 1:57 PM
[2019-03-31] MEDS ORDERED: ePHEDrine 50 MG/ML VIAL ONE ×2 (14:21→14:22)
[2019-03-31] MEDS ORDERED: Rocuronium Bromide 10 MG/ML (10ML VIAL) ONE ×2 (14:21→14:22)
[2019-03-31] MEDS ORDERED: Glycopyrrolate 0.2 MG/ML 5 ML SYRINGE ONE (14:21)
[2019-03-31] MEDS ORDERED: PROPOFOL 200 MG/20 ML VIAL ONE (14:22)
[2019-03-31] MEDS ORDERED: Lidocaine 1% PF 5 ML VIAL ONE (14:22)
[2019-03-31] MEDS ORDERED: Dexamethasone 20 MG/5 ML VIAL ONE (14:22)
[2019-03-31] MEDS ORDERED: Ondansetron PF 4 MG/2 ML Vial ONE (14:22)
[2019-03-31] MEDS ORDERED: SUGAMMADEX SODIUM 200 MG/2 ML VIAL ONE (14:57)
[2019-03-31] MEDS ORDERED: traMADol HCl 50 MG TAB PO PRN ×2 (14:58)
[2019-03-31] MEDS ORDERED: PACU-Morphine 4MG/ML VIAL SLOW IVP PRN (15:16)
[2019-03-31] MEDS ORDERED: Ondansetron HCl/PF 4 MG/2 ML Vial IVP PRN (15:16)
--- NOTE | 2019-03-31 16:53 | OP ---
DATE OF PROCEDURE: 03/31/2019 PROCEDURES PERFORMED: Endoscopic retrograde cholangiopancreatography with sphincterotomy. PREOPERATIVE DIAGNOSES: Cholecystitis and possible cholangitis with possible choledocholithiasis. DESCRIPTION OF PROCEDURE: Informed consent was obtained from the patient. The risks and benefits of the procedure were explained in detail. The patient was sedated with general anesthesia and placed in the prone position. The duodenoscope was advanced without difficulty to the second portion of the duodenum. The ampulla externally appeared unremarkable; however, there was no flow of bile from the ampulla throughout the procedure initially. Selective cannulation of the common bile duct was difficult as the guidewire initially passed into the pancreatic duct. The catheter was repositioned multiple times and the common bile duct was selectively cannulated. Opening of the common bile duct was tight with passage of the sphincterotome through the opening. Cholangiogram was performed, which showed a 6 to 7 mm common bile duct without filling defects. The hepatic ducts were unremarkable. The cystic duct did fill and gallbladder filled. A complete sphincterotomy was performed with a rapid gush of bile that was clear yellow. Balloon sweep of the bile duct and an occlusive cholangiogram confirmed the duct to be clear. IMPRESSION: 1. Ampullary stenosis. The ampulla appeared unremarkable externally. However, there is no bile flow. Selective cannulation of the common bile duct was performed with difficulty. The biliary opening was tight as the sphincterotome was passed over the guidewire into the bile duct. Once the sphincterotomy was performed, there was a rapid gush of clear yellow bile. 2. Complete sphincterotomy performed. 3. Cholangiogram showed a 7 mm common bile duct and normal intra and extrahepatic ducts. No obvious filling defects by cholangiogram. The cystic duct was patent. 4. Balloon sweep of the bile duct and occlusion cholangiogram confirms the bile duct to be clear. RECOMMENDATIONS: 1. Follow trend of the liver function tests. 2. Follow through with laparoscopic cholecystectomy for cholecystitis. Job ID: [id number]
--- NOTE | 2019-03-31 17:30 | OP ---
DATE OF PROCEDURE: 03/31/2019 PREOPERATIVE DIAGNOSES: Acute cholecystitis and cholelithiasis. POSTOPERATIVE DIAGNOSES: Acute cholecystitis and cholelithiasis. OPERATION PERFORMED: Laparoscopic cholecystectomy. ANESTHESIA: General endotracheal. ESTIMATED BLOOD LOSS: 10 mL. FLUIDS GIVEN: 800 mL crystalloids. COUNT: Sponge and instrument counts were verified as correct x2. COMPLICATIONS: None apparent at the time of operation. INDICATIONS FOR OPERATION: A 73-year-old woman presented with several days of malaise associated with multiple episodes of nausea, vomiting, and abdominal pain. Clinical radiographic examination was consistent with acute cholecystitis, cholelithiasis, and suspicion for choledocholithiasis with elevated LFTs. The patient underwent an ERCP earlier today with sphincterotomy. Following which, she was brought to the operating room for laparoscopic cholecystectomy. DESCRIPTION OF PROCEDURE: Informed consent was obtained from the patient, who was brought to the operating room and placed in supine position. Following general anesthesia, abdomen was sterilely prepped and draped in usual fashion. Skin below the umbilicus was infiltrated with 0.25% Marcaine with epinephrine. A small curvilinear infraumbilical incision was made using 11 scalpel. Umbilical stalk grasped with Gerda and elevated. Veress needle inserted through the incision and placed in the peritoneal cavity, through which the abdomen was insufflated with 3 L of CO2 gas. Intra-abdominal pressure was noted at negative 1 mmHg. Following an abdominal insufflation, Veress needle was removed and a 5 mm trocar introduced using a Visiport under laparoscopy. Laparoscopy confirmed proper placement of the port, no injuries to underlying structures. Additional laparoscopy reveals gallbladder in the usual anatomic location partially encased by omental adhesions. Under direct laparoscopy, a 12 mm epigastric and two 5 mm right lateral subcostal ports were placed after the overlying skin were infiltrated with 0.25% Marcaine with epinephrine and appropriate incision was made. The patient was placed in a reverse Trendelenburg position, rotated to her left. I introduced a [place] dissector with cautery using this to take down omental adhesions. A Prestige grasper was introduced through the right lateral subcostal port grasping the fundus of the gallbladder, which was elevated cephalad. Once omental adhesions were taken down from the remainder of the gallbladder, a second Prestige grasper was introduced through the right medial subcostal port grasping the Shawanda's pouch, which was retracted laterally. Cystic duct was carefully dissected free from surrounding structures at the triangle of [place]ot. Duct was divided between clips applying 2 clips proximally and 1 clip at the junction of the cystic duct and gallbladder. A cystic artery itself was dissected free from surrounding structures and divided between clips in a similar fashion. Gallbladder was removed from the liver bed using cautery with good hemostasis. Gallbladder was delivered of the abdominal cavity using an EndoCatch. Operative site inspected for good hemostasis. All clips remained in place. No bile stains present. Finding no other pathology, laparoscopy was terminated. Note that the liver was well visualized and there was no nodularity to suggest chronic liver disease. Fascia of the epigastric port site was closed using 0 Vicryl suture and Endoclosure device on the laparoscopy. Abdomen was desufflated. All ports and instruments removed and accounted for. Skin incision was closed using 4-0 Monocryl suture in subcuticular fashion. Dermabond was applied over incisional closure. The patient tolerated the operation without any apparent complication and was returned to recovery room in satisfactory condition. Job ID: [id number]
[2019-03-31] MEDS ORDERED: Ketorolac Tromethamine 30 MG/ML VIAL IVP SCH (18:00)
[2019-03-31] MEDS: Topiramate 100 MG TAB PO SCH ×2 (18:10→20:48)
[2019-03-31] MEDS: Venlafaxine HCl XR 75 MG CAP PO SCH (18:11)
[2019-03-31] MEDS: Acetaminophen 325 MG TAB PO PRN (19:05)
[2019-03-31] MEDS ORDERED: diphenhydrAMINE 50 MG CAP PO PRN (19:37)
[2019-03-31] MEDS: traZODone HCl 50 MG TAB PO SCH (20:48)
[2019-03-31] MEDS: Enoxaparin Sodium 40 MG/0.4 ML SYRINGE SC SCH (20:48)
[2019-04-01] MEDS: Temazepam 15 MG CAP PO PRN ×2 (00:02→21:02)
[2019-04-01] MEDS: Ondansetron PF 4 MG/2 ML Vial IVP PRN ×2 (02:45→13:05)
[2019-04-01 05:30] LABS: #Lymphocytes 0.9 thou/uL (1.20-3.40); #Monocytes 0.6 thou/uL (0.11-0.59); #Neutrophils 5.9 thou/uL (1.40-6.50); %Eosinophils 0.2 % (0.0-10.0); %Lymphocytes 12.4 % (21.0-51.0); %Neutrophils 79.4 % (42.0-75.0); Hemoglobin 12.6 g/dL (12.0-16.0); Mean Corpuscular HGB CONC 32.9 g/dL (32.0-36.0); Mean Corpuscular Hemoglobin 31.3 pg (27.0-31.0); Mean Corpuscular Volume 95.2 fL (78.0-98.0); Mean Platelet Volume 9.1 fL (7.4-10.4); Platelet Count 140 thou/uL (130-400); RBC Distribution Width 13.4 % (11.5-14.5); Red Blood Cell (RBC) Count 4.04 mill/uL (4.20-5.40); White Blood Cell (WBC) Count 7.4 thou/uL (4.8-10.8)
[2019-04-01 05:47] LABS: ALT (SGPT) 405 U/L (8-55); AST (SGOT) 319 U/L (5-34); Albumin 3.8 g/dL (3.4-4.8); Alkaline Phosphatase 170 U/L (40-150); Anion Gap 14 mmol/L (10-20); BUN (Urea Nitrogen) 4 mg/dL (9.8-20.1); Bilirubin, Total 1.2 mg/dL (0.2-1.2); Calc. Creatinine Clearance 65 mL/min (70-130); Calcium 9.4 mg/dL (7.8-10.44); Carbon Dioxide 24 mmol/L (23-31); Chloride 103 mmol/L (98-107); Estimated GFR-MDRD 72; Globulin 2.2 g/dL (2.4-3.5); Glucose 104 mg/dL (83-110); Lipase 623 U/L (8-78); Potassium 3.9 mmol/L (3.5-5.1); Sodium 137 mmol/L (136-145)
[2019-04-01] MEDS: 1/2 NS w/KCL 20 mEq 1,000 ML IV SCH (06:13)
[2019-04-01] MEDS: Topiramate 100 MG TAB PO SCH ×2 (09:09→21:01)
[2019-04-01] MEDS: Venlafaxine HCl XR 75 MG CAP PO SCH (09:11)
[2019-04-01] MEDS: Famotidine 20 MG TAB PO SCH ×2 (09:11→21:02)
--- NOTE | 2019-04-01 11:21 | PDOC.PN ---
- Subjective Encounter Start Date: 04/01/19 Encounter Start Time: 07:00 pt did not sleep last night and this morning she was in anger, her Bp was high she does not have abdominal pain, - Objective Resuscitation Status - Order Detail: 03/30/19 08:03 Resuscitation Status Routine Resuscitation Status: FULL: Full Resuscitation MAR Reviewed: Yes Vital Signs & Weight: Vital Signs (12 hours) Temp Pulse Resp BP Pulse Ox 04/01/19 09:11 95 04/01/19 07:28 98.5 F 87 16 160/78 H 95 04/01/19 04:43 98.1 F 87 16 155/78 H 97 04/01/19 00:29 98.5 F 84 16 157/67 H 97 Weight Weight 140 lb 11.2 oz I&O: 03/31/19 04/01/19 04/02/19 06:59 06:59 06:59 Intake Total 700 550 Output Total 1050 900 200 Balance -350 -350 -200 Result Diagrams: 04/01/19 04:39 04/01/19 04:39 Phys Exam - Physical Examination Constitutional: NAD HEENT: PERRLA, moist MMs, sclera anicteric Neck: no JVD, supple Respiratory: no wheezing, no rales, no rhonchi Cardiovascular: RRR, no significant murmur, no rub Gastrointestinal: soft, non-tender, no distention, positive bowel sounds Musculoskeletal: no edema, pulses present Neurological: non-focal, normal sensation, moves all 4 limbs Lymphatic: no nodes Psychiatric: normal affect, A&O x 3 Skin: no rash, normal turgor Dx/Plan (1) Cholelithiasis with acute cholecystitis Code(s): K80.00 - CALCULUS OF GALLBLADDER W ACUTE CHOLECYST W/O OBSTRUCTION Status: Acute Qualifiers: Biliary obstruction: without biliary obstruction Qualified Code(s): K80.00 - Calculus of gallbladder with acute cholecystitis without obstruction Comment: s/p Lap choleycystectomy, ERCP with sphincterotomy for choledecholithiasis (2) Abnormal LFTs Code(s): R94.5 - ABNORMAL RESULTS OF LIVER FUNCTION STUDIES Status: Acute Comment: due to cholecystitis (3) Anxiety and depression Code(s): F41.9 - ANXIETY DISORDER, UNSPECIFIED; F32.9 - MAJOR DEPRESSIVE DISORDER, SINGLE EPISODE, UNSPECIFIED Status: Chronic - Plan cont current plan of care, continue antibiotics, PT/OT * continue PT/OT today * medication reviewed as below * symptomatic treatment * will repeat labs tomorrow * LFT improving * Lipase is high, will monitor today Review of Systems - Review of Systems ENT: negative: Ear Pain, Ear Discharge, Nose Pain, Nose Discharge, Nose Congestion, Mouth Pain, Mouth Swelling, Throat Pain, Throat Swelling, Other Respiratory: negative: Cough, Dry, Shortness of Breath, Hemoptysis, SOB with Excertion, Pleuritic Pain, Sputum, Wheezing Cardiovascular: negative: chest pain, palpitations, orthopnea, paroxysmal nocturnal dyspnea, edema, light headedness, other Gastrointestinal: negative: Nausea, Vomiting, Abdominal Pain, Diarrhea, Constipation, Melena, Hematochezia, Other Genitourinary: negative: Dysuria, Frequency, Incontinence, Hematuria, Retention , Other Musculoskeletal: negative: Neck Pain, Shoulder Pain, Arm Pain, Back Pain, Hand Pain, Leg Pain, Foot Pain, Other - Medications/Allergies Allergies/Adverse Reactions: Allergies Allergy/AdvReac Type Severity Reaction Status Date / Time codeine Allergy Verified 03/30/19 06:38 epinephrine Allergy Verified 03/30/19 06:38 iodine Allergy Verified 03/30/19 06:38 meperidine [From Demerol] Allergy Verified 03/30/19 06:38 phenobarbital Allergy Verified 03/30/19 06:38 promethazine [From Phenergan] Allergy Verified 03/30/19 06:38 propoxyphene [From Darvon] Allergy Verified 03/30/19 06:38 Medications: Current Medications Acetaminophen (Tylenol) 650 mg PO Q4H PRN PRN Reason: Headache/Fever/Mild Pain (1-3) Last Admin: 03/31/19 19:05 Dose: 650 mg Bisacodyl (Dulcolax) 10 mg UT DAILYPRN PRN PRN Reason: Constipation Calcium Carbonate (Tums) 1,000 mg PO Q4H PRN PRN Reason: Heartburn or Indigestion Diphenhydramine HCl (Benadryl) 50 mg PO Q6H PRN PRN Reason: Itching & Insomnia Last Admin: 03/31/19 20:47 Dose: 50 mg Enoxaparin Sodium (Lovenox) 40 mg SC 2100 THELMA Last Admin: 03/31/19 20:48 Dose: 40 mg Famotidine (Pepcid) 20 mg PO BID [facility] Last Admin: 04/01/19 09:11 Dose: 20 mg Guaifenesin (Robitussin Sf) 200 mg PO Q4H PRN PRN Reason: Cough Hydralazine HCl (Apresoline) 10 mg SLOW IVP Q4H PRN PRN Reason: SBP > 180 and HR < 70 Loperamide HCl (Imodium) 2 mg PO PRN PRN PRN Reason: Diarrhea/Loose Stools Loratadine (Claritin) 10 mg PO DAILYPRN PRN PRN Reason: Sinus Symptoms Last Admin: 03/31/19 19:33 Dose: 10 mg Ondansetron HCl (Zofran Odt) 4 mg PO Q6H PRN PRN Reason: Nausea/Vomiting Ondansetron HCl (Zofran) 4 mg IVP Q6H PRN PRN Reason: Nausea/Vomiting Last Admin: 04/01/19 02:45 Dose: 4 mg Quetiapine Fumarate (Seroquel) 25 mg PO DAILY [facility] Last Admin: 04/01/19 09:11 Dose: 25 mg Quetiapine Fumarate (Seroquel) 75 mg PO HS [facility] Last Admin: 03/31/19 20:48 Dose: 75 mg Senna/Docusate Sodium (Senokot S) 2 tab PO BID PRN PRN Reason: Constipation Sodium Chloride ([place] Nasal [place] 0.65%) 0 ml EA NARE QIDPRN PRN PRN Reason: Nasal Congestion Sodium Chloride (Flush - Normal Saline) 10 ml IVF Q12HR [facility] Last Admin: 04/01/19 09:14 Dose: Not Given Sodium Chloride (Flush - Normal Saline) 10 ml IVF PRN PRN PRN Reason: Saline Flush Temazepam (Restoril) 15 mg PO HS PRN PRN Reason: Insomnia Last Admin: 04/01/19 00:02 Dose: 15 mg Throat Lozenges (Cepastat Lozenges) 1 kiesha PO Q2H PRN PRN Reason: Sore Throat Topiramate (Topamax) 200 mg PO BID [facility] Last Admin: 04/01/19 09:09 Dose: 200 mg Tramadol HCl (Ultram) 50 mg PO Q6H PRN PRN Reason: Moderate Pain (4-6) Last Admin: 03/31/19 19:06 Dose: 50 mg Tramadol HCl (Ultram) 100 mg PO Q6H PRN PRN Reason: Severe Pain (7-10) Trazodone HCl (Desyrel) 50 mg PO [facility] Last Admin: 03/31/19 20:48 Dose: 50 mg Venlafaxine HCl (Effexor Xr) 75 mg PO DAILY [facility] Last Admin: 04/01/19 09:11 Dose: 75 mg
--- NOTE | 2019-04-01 12:52 | PRG ---
DATE OF SERVICE: 04/01/2019 SUBJECTIVE: Ms. Thorpe has some bloating discomfort in the epigastric region. She feels like her mouth is drier feeder. OBJECTIVE: VITAL SIGNS: Temperature 98.7, pulse 81, blood pressure 163/81. GENERAL: She is in no acute distress. Awake and alert. LUNGS: Clear to auscultation bilaterally. HEART: Regular rate and rhythm without murmur. ABDOMEN: Soft. Mild epigastric tenderness. Bowel sounds are present. EXTREMITIES: No lower extremity edema. LABORATORY DATA: White blood cell count 7.4, hemoglobin 12.6, platelets 140. Bilirubin 1.2, AST 319, ALT 405, alkaline phosphatase 170. Lipase 623. IMPRESSION: 1. Ampullary stenosis, status post endoscopic retrograde cholangiopancreatography and sphincterotomy. She is having improvement in her liver tests today. 2. Cholecystitis, status post cholecystectomy. 3. Mild post endoscopic retrograde cholangiopancreatography pancreatitis. The lipase is elevated. She is having some bloating discomfort in the epigastric region. She is tolerating liquids so far. I would keep her on the liquids and continue the IV fluids for today and reassess tomorrow clinically. Follow the trend of her lipase. Job ID: [id number]
[2019-04-01] MEDS: Lactated Ringer's 1,000 ML IV SCH (13:08)
--- NOTE | 2019-04-01 13:29 | PRG ---
DATE OF SERVICE: 04/01/2019 SUBJECTIVE: Ms. Thorpe is a 73-year-old woman, who is postop day #1, status post ERCP and laparoscopic cholecystectomy. The patient is awake and alert this morning. She reports adequate pain control. She is tolerating clear liquid diet. OBJECTIVE: VITAL SIGNS: This morning, include blood pressure 163/81, pulse 81, respiratory rate is 18, temperature 98.7 degrees Fahrenheit, and oxygen saturation 96% on room air. HEENT: Reveals pupils are equal, round, reactive to light and accommodation. She has no scleral icterus present. ABDOMEN: Soft and nondistended. Incisions are intact, clean, and dry. She has no peritoneal signs on examination. NEUROLOGIC: Reveals no focal deficits present. LABORATORY RESULTS: Laboratory findings includes a CBC with 7400 white blood cells, hemoglobin and hematocrit are stable at 12.6 and 38.5 respectively. Platelet count is 140,000. Metabolic profile; sodium 137, potassium 3.9, chloride is 103, bicarbonate is 24, BUN 4, creatinine 0.79, glucose 104, total bilirubin is normal now at 1.2. AST and ALT decreasing at 319 and 405 respectively, this is in contrast to 649 and 565 from yesterday. Alkaline phosphatase remains stable at 170. Serum lipase is elevated at 623. IMPRESSION: 1. Postoperative day #1, status post ERCP and laparoscopic cholecystectomy. 2. Acute mild chemical pancreatitis, likely contrast induced. PLAN: 1. Advance diet as tolerated. 2. Increase activity per Physical and Occupational Therapy. 3. We will repeat laboratory studies in the morning and consider discharge at that time if LFTs are normalizing and there is no laboratory or clinical evidence of worsening pancreatitis. 4. Above findings and plan discussed with the patient, who indicates understanding information given. I have answered her questions. Job ID: [id number]
[2019-04-01] MEDS ORDERED: Metoclopramide HCl 10 MG/2 ML VIAL IVP SCH (16:45)
[2019-04-01] MEDS: traZODone HCl 50 MG TAB PO SCH (21:02)
[2019-04-01] MEDS: Enoxaparin Sodium 40 MG/0.4 ML SYRINGE SC SCH (21:02)
[2019-04-02] MEDS: Lactated Ringer's 1,000 ML IV SCH (00:26)
[2019-04-02] MEDS: Ondansetron ODT 4 MG TAB PO PRN (04:59)
[2019-04-02 05:16] LABS: ALT (SGPT) 280 U/L (8-55); AST (SGOT) 151 U/L (5-34); Albumin 3.7 g/dL (3.4-4.8); Alkaline Phosphatase 159 U/L (40-150); Anion Gap 13 mmol/L (10-20); BUN (Urea Nitrogen) 5 mg/dL (9.8-20.1); Bilirubin, Total 1.2 mg/dL (0.2-1.2); Calc. Creatinine Clearance 79 mL/min (70-130); Calcium 9.4 mg/dL (7.8-10.44); Carbon Dioxide 21 mmol/L (23-31); Chloride 103 mmol/L (98-107); Estimated GFR-MDRD 90; Globulin 2.6 g/dL (2.4-3.5); Glucose 117 mg/dL (83-110); Magnesium 1.9 mg/dL (1.6-2.6); Potassium 3.6 mmol/L (3.5-5.1); Protein, Total 6.3 g/dL (6.0-8.3); Sodium 133 mmol/L (136-145)
[2019-04-02 05:29] LABS: Lipase 2117 U/L (8-78)
[2019-04-02] MEDS: Sodium Chloride 0.9% 1,000 ML IV SCH ×2 (09:16→20:14)
[2019-04-02] MEDS: Venlafaxine HCl XR 75 MG CAP PO SCH (09:16)
[2019-04-02] MEDS: Famotidine 20 MG TAB PO SCH ×2 (09:16→21:37)
[2019-04-02] MEDS: Topiramate 100 MG TAB PO SCH ×2 (09:17→21:38)
[2019-04-02] MEDS ORDERED: ALPRAZolam 0.5 MG TAB PO SCH ×2 (09:45→21:00)
--- NOTE | 2019-04-02 10:54 | PDOC.PN ---
- Subjective Encounter Start Date: 04/02/19 Encounter Start Time: 07:15 she slept well last night, has nausea and mild epigastric discomfort, this morning pt is anxious - Objective Resuscitation Status - Order Detail: 03/30/19 08:03 Resuscitation Status Routine Resuscitation Status: FULL: Full Resuscitation MAR Reviewed: Yes Vital Signs & Weight: Vital Signs (12 hours) Temp Pulse Resp BP Pulse Ox 04/02/19 08:03 98.8 F 99 16 161/80 H 95 04/02/19 04:08 98.4 F 91 16 147/81 H 93 L 04/01/19 23:47 98.3 F 95 16 150/79 H 96 Weight Weight 140 lb 11.2 oz I&O: 04/01/19 04/02/19 04/03/19 06:59 06:59 06:59 Intake Total 550 1425 Output Total 1800 200 Balance -1250 1225 Result Diagrams: 04/01/19 04:39 04/02/19 04:35 Phys Exam - Physical Examination Constitutional: NAD HEENT: PERRLA, moist MMs, sclera anicteric Neck: no JVD, supple Respiratory: no wheezing, no rales, no rhonchi Cardiovascular: RRR, no significant murmur, no rub Gastrointestinal: soft, non-tender, no distention, positive bowel sounds Musculoskeletal: no edema, pulses present Neurological: non-focal, normal sensation Lymphatic: no nodes Psychiatric: normal affect Deviation from normal: anxious Skin: no rash, normal turgor Dx/Plan (1) Cholelithiasis with acute cholecystitis Code(s): K80.00 - CALCULUS OF GALLBLADDER W ACUTE CHOLECYST W/O OBSTRUCTION Status: Acute Qualifiers: Biliary obstruction: without biliary obstruction Qualified Code(s): K80.00 - Calculus of gallbladder with acute cholecystitis without obstruction Comment: s/p Lap choleycystectomy, ERCP with sphincterotomy for choledecholithiasis (2) Abnormal LFTs Code(s): R94.5 - ABNORMAL RESULTS OF LIVER FUNCTION STUDIES Status: Acute Comment: improving, due to cholecystitis (3) Anxiety and depression Code(s): F41.9 - ANXIETY DISORDER, UNSPECIFIED; F32.9 - MAJOR DEPRESSIVE DISORDER, SINGLE EPISODE, UNSPECIFIED Status: Chronic (4) Acute pancreatitis after endoscopic retrograde cholangiopancreatography ( ERCP) Code(s): K91.89 - OTH POSTPROCEDURAL COMPLICATIONS AND DISORDERS OF DGSTV SYS; K85.90 - ACUTE PANCREATITIS WITHOUT NECROSIS OR INFECTION, UNSP Status: Acute (5) Hypokalemia Code(s): E87.6 - HYPOKALEMIA Status: Resolved (6) Leucopenia Code(s): D72.819 - DECREASED WHITE BLOOD CELL COUNT, UNSPECIFIED Status: Resolved - Plan cont current plan of care * continue IVF * add xanax for her anxiety * will repeat CMP, lipase * ambulate as tolerated * medication reviewed as below * symptomatic treatment. Review of Systems - Review of Systems Eyes: negative: Pain, Vision Change, Conjunctivae Inflammation, Eyelid Inflammation, Redness, Other ENT: negative: Ear Pain, Ear Discharge, Nose Pain, Nose Discharge, Nose Congestion, Mouth Pain, Mouth Swelling, Throat Pain, Throat Swelling, Other Respiratory: negative: Cough, Dry, Shortness of Breath, Hemoptysis, SOB with Excertion, Pleuritic Pain, Sputum, Wheezing Cardiovascular: negative: chest pain, palpitations, orthopnea, paroxysmal nocturnal dyspnea, edema, light headedness, other Gastrointestinal: Nausea, Abdominal Pain. negative: Vomiting, Diarrhea, Constipation, Melena, Hematochezia, Other Genitourinary: negative: Dysuria, Frequency, Incontinence, Hematuria, Retention , Other Musculoskeletal: negative: Neck Pain, Shoulder Pain, Arm Pain, Back Pain, Hand Pain, Leg Pain, Foot Pain, Other Skin: negative: Rash, Lesions, Seth, Bruising, Other - Medications/Allergies Allergies/Adverse Reactions: Allergies Allergy/AdvReac Type Severity Reaction Status Date / Time codeine Allergy Verified 03/30/19 06:38 epinephrine Allergy Verified 03/30/19 06:38 iodine Allergy Verified 03/30/19 06:38 meperidine [From Demerol] Allergy Verified 03/30/19 06:38 phenobarbital Allergy Verified 03/30/19 06:38 promethazine [From Phenergan] Allergy Verified 03/30/19 06:38 propoxyphene [From Darvon] Allergy Verified 03/30/19 06:38 Medications: Current Medications Acetaminophen (Tylenol) 650 mg PO Q4H PRN PRN Reason: Headache/Fever/Mild Pain (1-3) Last Admin: 03/31/19 19:05 Dose: 650 mg Alprazolam (Xanax) 0.5 mg PO BID [facility] Alprazolam (Xanax) 0.5 mg PO NOW [facility] Stop: 04/02/19 12:00 Last Admin: 04/02/19 09:45 Dose: 0.5 mg Alprazolam (Xanax) 0.5 mg PO QIDPRN PRN PRN Reason: Anxiety/Agitation Bisacodyl (Dulcolax) 10 mg [place] DAILYPRN PRN PRN Reason: Constipation Calcium Carbonate (Tums) 1,000 mg PO Q4H PRN PRN Reason: Heartburn or Indigestion Diphenhydramine HCl (Benadryl) 50 mg PO Q6H PRN PRN Reason: Itching & Insomnia Last Admin: 03/31/19 20:47 Dose: 50 mg Enoxaparin Sodium (Lovenox) 40 mg SC 2100 [facility] Last Admin: 04/01/19 21:02 Dose: 40 mg Famotidine (Pepcid) 20 mg PO BID [facility] Last Admin: 04/02/19 09:16 Dose: 20 mg Guaifenesin (Robitussin Sf) 200 mg PO Q4H PRN PRN Reason: Cough Hydralazine HCl (Apresoline) 10 mg SLOW IVP Q4H PRN PRN Reason: SBP > 180 and HR < 70 Sodium Chloride (Normal Saline 0.9%) 1,000 mls @ 100 mls/hr IV .Q10H [facility] Last Admin: 04/02/19 09:16 Dose: 1,000 mls Loperamide HCl (Imodium) 2 mg PO PRN PRN PRN Reason: Diarrhea/Loose Stools Loratadine (Claritin) 10 mg PO DAILYPRN PRN PRN Reason: Sinus Symptoms Last Admin: 03/31/19 19:33 Dose: 10 mg Ondansetron HCl (Zofran Odt) 4 mg PO Q6H PRN PRN Reason: Nausea/Vomiting Last Admin: 04/02/19 04:59 Dose: 4 mg Ondansetron HCl (Zofran) 4 mg IVP Q6H PRN PRN Reason: Nausea/Vomiting Last Admin: 04/01/19 13:05 Dose: 4 mg Quetiapine Fumarate (Seroquel) 25 mg PO DAILY [facility] Last Admin: 04/02/19 09:17 Dose: 25 mg Quetiapine Fumarate (Seroquel) 75 mg PO HS [facility] Last Admin: 04/01/19 21:02 Dose: 75 mg Senna/Docusate Sodium (Senokot S) 2 tab PO BID PRN PRN Reason: Constipation Sodium Chloride ([place] 0.65%) 0 ml EA NARE QIDPRN PRN PRN Reason: Nasal Congestion Sodium Chloride (Flush - Normal Saline) 10 ml IVF Q12HR [facility] Last Admin: 04/02/19 09:43 Dose: Not Given Sodium Chloride (Flush - Normal Saline) 10 ml IVF PRN PRN PRN Reason: Saline Flush Temazepam (Restoril) 15 mg PO HS PRN PRN Reason: Insomnia Last Admin: 04/01/19 21:02 Dose: 15 mg Throat Lozenges (Cepastat Lozenges) 1 kiesha PO Q2H PRN PRN Reason: Sore Throat Topiramate (Topamax) 200 mg PO BID [facility] Last Admin: 04/02/19 09:17 Dose: 200 mg Tramadol HCl (Ultram) 50 mg PO Q6H PRN PRN Reason: Moderate Pain (4-6) Last Admin: 03/31/19 19:06 Dose: 50 mg Tramadol HCl (Ultram) 100 mg PO Q6H PRN PRN Reason: Severe Pain (7-10) Trazodone HCl (Desyrel) 50 mg PO HS [facility] Last Admin: 04/01/19 21:02 Dose: 50 mg Venlafaxine HCl (Effexor Xr) 75 mg PO DAILY [facility] Last Admin: 04/02/19 09:16 Dose: 75 mg
[2019-04-02] MEDS: Ondansetron PF 4 MG/2 ML Vial IVP PRN ×2 (12:27→21:46)
--- NOTE | 2019-04-02 14:07 | EKG ---
Test Reason : Blood Pressure : / mmHG Vent. Rate : 054 BPM Atrial Rate : 054 BPM P-R Int : 120 ms QRS Dur : 092 ms QT Int : 478 ms P-R-T Axes : 054 020 058 degrees QTc Int : 453 ms Sinus bradycardia RSR' or QR pattern in V1 suggests right ventricular conduction delay T wave abnormality, consider anterior ischemia Abnormal ECG Confirmed by IRVING CHRISTIE ([id number]), department editor HUSSEIN FIORE ([id number]) on 04/02/2019 2:07:29 PM Referred By: Confirmed By:IRVING CHRISTIE
--- NOTE | 2019-04-02 14:33 | PRG ---
DATE OF SERVICE: 04/02/2019 SUBJECTIVE: The patient was seen this morning lying in bed. Reported she slept well overnight and has been ambulating to the bathroom with assistance. She is voiding without difficulties. She is on a full liquid diet and tolerating that. She does report some epigastric area pain with palpation. States otherwise her pain is well controlled. Did complain of anxiety today. OBJECTIVE: VITAL SIGNS: Temperature 98.8, pulse 99, respirations 16, oxygen saturation 95% on room air, blood pressure 161/80. GENERAL: Elderly female, lying in bed with no signs of acute distress. PULMONARY: Equal chest rise and fall. Clear breath sounds bilaterally. No signs of acute respiratory distress. CARDIAC: Regular rate and rhythm. No murmurs, gallops, or rubs. GI: Abdomen is soft, tender in epigastric area. Nondistended. Surgical sites are clean, dry, and intact. EXTREMITIES: 2+ pulses in all extremities. No significant swelling noted. Gross motor and sensation are intact. NEUROLOGIC: GCS is 15. Pupils are equal, round, reactive to light bilaterally. LABORATORY FINDINGS: White count 7.4, hemoglobin 12.6, hematocrit 38.5, platelets 140. Sodium 133, potassium 3.6, chloride 103, carbon dioxide 21, BUN 5, creatinine 0.65, glucose 117, magnesium 1.9, total bilirubin 1.2, AST 151, ALT 280, alkaline phosphatase 159, lipase 2117. DIAGNOSTIC FINDINGS: There are no new diagnostic findings to report. ASSESSMENT: 1. Postoperative day #2, status post endoscopic retrograde cholangiopancreatography and laparoscopic cholecystectomy. 2. Acute mild chemical pancreatitis, likely contrast induced. 3. Acute hyponatremia. PLAN: We will continue to monitor the patient. Continue on a full liquid diet with IV fluids. We will discontinue LR as the patient is becoming hyponatremic and we will change it to normal saline. Continue to work with Physical and Occupational Therapy. We will repeat LFTs and lipase tomorrow. The patient was seen and examined by Dr. Hicks and myself this morning during rounds. Job ID: [id number]
[2019-04-02] MEDS: Enoxaparin Sodium 40 MG/0.4 ML SYRINGE SC SCH (21:38)
[2019-04-02] MEDS: traZODone HCl 50 MG TAB PO SCH (21:38)
[2019-04-03] MEDS: Sodium Chloride 0.9% 1,000 ML IV SCH ×3 (05:03→12:03)
[2019-04-03 05:07] LABS: ALT (SGPT) 187 U/L (8-55); AST (SGOT) 82 U/L (5-34); Albumin 3.3 g/dL (3.4-4.8); Alkaline Phosphatase 141 U/L (40-150); Anion Gap 11 mmol/L (10-20); BUN (Urea Nitrogen) 8 mg/dL (9.8-20.1); Bilirubin, Total 1.1 mg/dL (0.2-1.2); Calc. Creatinine Clearance 80 mL/min (70-130); Calcium 8.8 mg/dL (7.8-10.44); Carbon Dioxide 20 mmol/L (23-31); Chloride 105 mmol/L (98-107); Estimated GFR-MDRD Greater than 90; Globulin 2.3 g/dL (2.4-3.5); Glucose 103 mg/dL (83-110); Lipase 169 U/L (8-78); Protein, Total 5.6 g/dL (6.0-8.3); Sodium 133 mmol/L (136-145)
[2019-04-03] MEDS: Famotidine 20 MG TAB PO SCH ×2 (09:05→20:58)
[2019-04-03] MEDS: Potassium Chloride 20 MEQ TAB PO SCH ×2 (09:05→09:12)
[2019-04-03] MEDS: Venlafaxine HCl XR 75 MG CAP PO SCH (09:06)
[2019-04-03] MEDS: Topiramate 100 MG TAB PO SCH ×2 (09:06→20:57)
--- NOTE | 2019-04-03 11:47 | PDOC.PN ---
- Subjective Encounter Start Date: 04/03/19 Encounter Start Time: 07:15 pt has nausea, last night she had vomiting, has mild epigastric abdominal pain - Objective Resuscitation Status - Order Detail: 03/30/19 08:03 Resuscitation Status Routine Resuscitation Status: FULL: Full Resuscitation MAR Reviewed: Yes Vital Signs & Weight: Vital Signs (12 hours) Temp Pulse Resp BP BP Pulse Ox 04/03/19 08:00 93 L 04/03/19 07:22 98.3 F 101 H 18 134/79 93 L 04/03/19 04:00 98.6 F 100 16 138/87 93 L 04/02/19 23:49 98.8 F 99 16 152/82 H 93 L Weight Weight 140 lb 11.2 oz I&O: 04/02/19 04/03/19 04/04/19 06:59 06:59 06:59 Intake Total 1425 1650 Output Total 200 200 Balance 1225 1450 Result Diagrams: 04/01/19 04:39 04/03/19 04:03 Phys Exam - Physical Examination Constitutional: NAD HEENT: PERRLA, moist MMs, sclera anicteric Neck: no JVD, supple Respiratory: no wheezing, no rales, no rhonchi Cardiovascular: RRR, no significant murmur, no rub Gastrointestinal: soft, no distention, positive bowel sounds epigastric tenderness Musculoskeletal: no edema, pulses present Neurological: non-focal, normal sensation, moves all 4 limbs Lymphatic: no nodes Psychiatric: normal affect, A&O x 3 Skin: no rash, normal turgor Dx/Plan (1) Cholelithiasis with acute cholecystitis Code(s): K80.00 - CALCULUS OF GALLBLADDER W ACUTE CHOLECYST W/O OBSTRUCTION Status: Acute Qualifiers: Biliary obstruction: without biliary obstruction Qualified Code(s): K80.00 - Calculus of gallbladder with acute cholecystitis without obstruction Comment: s/p Lap choleycystectomy, ERCP with sphincterotomy for choledecholithiasis (2) Abnormal LFTs Code(s): R94.5 - ABNORMAL RESULTS OF LIVER FUNCTION STUDIES Status: Acute Comment: improving, due to cholecystitis (3) Anxiety and depression Code(s): F41.9 - ANXIETY DISORDER, UNSPECIFIED; F32.9 - MAJOR DEPRESSIVE DISORDER, SINGLE EPISODE, UNSPECIFIED Status: Chronic (4) Acute pancreatitis after endoscopic retrograde cholangiopancreatography ( ERCP) Code(s): K91.89 - OTH POSTPROCEDURAL COMPLICATIONS AND DISORDERS OF DGSTV SYS; K85.90 - ACUTE PANCREATITIS WITHOUT NECROSIS OR INFECTION, UNSP Status: Acute (5) Hypokalemia Code(s): E87.6 - HYPOKALEMIA Status: Resolved (6) Leucopenia Code(s): D72.819 - DECREASED WHITE BLOOD CELL COUNT, UNSPECIFIED Status: Resolved - Plan cont current plan of care, PT/OT * continue IVF * replace potassium * overall improving * will consider discharge tomorrow * ambulate and discharge planning. Review of Systems - Review of Systems ENT: negative: Ear Pain, Ear Discharge, Nose Pain, Nose Discharge, Nose Congestion, Mouth Pain, Mouth Swelling, Throat Pain, Throat Swelling, Other Respiratory: negative: Cough, Dry, Shortness of Breath, Hemoptysis, SOB with Excertion, Pleuritic Pain, Sputum, Wheezing Cardiovascular: negative: chest pain, palpitations, orthopnea, paroxysmal nocturnal dyspnea, edema, light headedness, other Gastrointestinal: Nausea, Vomiting, Abdominal Pain. negative: Diarrhea, Constipation, Melena, Hematochezia, Other Genitourinary: negative: Dysuria, Frequency, Incontinence, Hematuria, Retention , Other Musculoskeletal: negative: Neck Pain, Shoulder Pain, Arm Pain, Back Pain, Hand Pain, Leg Pain, Foot Pain, Other Skin: negative: Rash, Lesions, Seth, Bruising, Other - Medications/Allergies Allergies/Adverse Reactions: Allergies Allergy/AdvReac Type Severity Reaction Status Date / Time codeine Allergy Verified 03/30/19 06:38 epinephrine Allergy Verified 03/30/19 06:38 iodine Allergy Verified 03/30/19 06:38 meperidine [From Demerol] Allergy Verified 03/30/19 06:38 phenobarbital Allergy Verified 03/30/19 06:38 promethazine [From Phenergan] Allergy Verified 03/30/19 06:38 propoxyphene [From Darvon] Allergy Verified 03/30/19 06:38 Medications: Current Medications Acetaminophen (Tylenol) 650 mg PO Q4H PRN PRN Reason: Headache/Fever/Mild Pain (1-3) Last Admin: 03/31/19 19:05 Dose: 650 mg Alprazolam (Xanax) 0.5 mg PO QIDPRN PRN PRN Reason: Anxiety/Agitation Bisacodyl (Dulcolax) 10 mg [place] DAILYPRN PRN PRN Reason: Constipation Calcium Carbonate (Tums) 1,000 mg PO Q4H PRN PRN Reason: Heartburn or Indigestion Diphenhydramine HCl (Benadryl) 50 mg PO Q6H PRN PRN Reason: Itching & Insomnia Last Admin: 03/31/19 20:47 Dose: 50 mg Enoxaparin Sodium (Lovenox) 40 mg SC 2100 [facility] Last Admin: 04/02/19 21:38 Dose: 40 mg Famotidine (Pepcid) 20 mg PO BID [facility] Last Admin: 04/03/19 09:05 Dose: 20 mg Guaifenesin (Robitussin Sf) 200 mg PO Q4H PRN PRN Reason: Cough Hydralazine HCl (Apresoline) 10 mg SLOW IVP Q4H PRN PRN Reason: SBP > 180 and HR < 70 Sodium Chloride (Normal Saline 0.9%) 1,000 mls @ 125 mls/hr IV .Q8H [facility] Last Admin: 04/03/19 05:36 Dose: 1,000 mls Loperamide HCl (Imodium) 2 mg PO PRN PRN PRN Reason: Diarrhea/Loose Stools Loratadine (Claritin) 10 mg PO DAILYPRN PRN PRN Reason: Sinus Symptoms Last Admin: 03/31/19 19:33 Dose: 10 mg Ondansetron HCl (Zofran Odt) 4 mg PO Q6H PRN PRN Reason: Nausea/Vomiting Last Admin: 04/02/19 04:59 Dose: 4 mg Ondansetron HCl (Zofran) 4 mg IVP Q6H PRN PRN Reason: Nausea/Vomiting Last Admin: 04/02/19 21:46 Dose: 4 mg Quetiapine Fumarate (Seroquel) 25 mg PO DAILY [facility] Last Admin: 04/03/19 09:05 Dose: 25 mg Quetiapine Fumarate (Seroquel) 75 mg PO HS [facility] Last Admin: 04/02/19 21:37 Dose: 75 mg Senna/Docusate Sodium (Senokot S) 2 tab PO BID PRN PRN Reason: Constipation Sodium Chloride ([place] Nasal [place] 0.65%) 0 ml EA NARE QIDPRN PRN PRN Reason: Nasal Congestion Sodium Chloride (Flush - Normal Saline) 10 ml IVF Q12HR [facility] Last Admin: 04/03/19 09:06 Dose: Not Given Sodium Chloride (Flush - Normal Saline) 10 ml IVF PRN PRN PRN Reason: Saline Flush Temazepam (Restoril) 15 mg PO HS PRN PRN Reason: Insomnia Last Admin: 04/01/19 21:02 Dose: 15 mg Throat Lozenges (Cepastat Lozenges) 1 kiesha PO Q2H PRN PRN Reason: Sore Throat Topiramate (Topamax) 200 mg PO BID [facility] Last Admin: 04/03/19 09:06 Dose: 200 mg Tramadol HCl (Ultram) 50 mg PO Q6H PRN PRN Reason: Moderate Pain (4-6) Last Admin: 03/31/19 19:06 Dose: 50 mg Tramadol HCl (Ultram) 100 mg PO Q6H PRN PRN Reason: Severe Pain (7-10) Trazodone HCl (Desyrel) 50 mg PO HS [facility] Last Admin: 04/02/19 21:38 Dose: 50 mg Venlafaxine HCl (Effexor Xr) 75 mg PO DAILY [facility] Last Admin: 04/03/19 09:06 Dose: 75 mg
[2019-04-03 14:12] LABS: #Eosinphils 0.1 thou/uL (0.0-0.7); #Lymphocytes 0.6 thou/uL (1.20-3.40); #Monocytes 0.7 thou/uL (0.11-0.59); #Neutrophils 7.1 thou/uL (1.40-6.50); %Basophils 0.1 % (0.0-1.0); %Eosinophils 0.6 % (0.0-10.0); %Lymphocytes 7.5 % (21.0-51.0); %Monocytes 8.2 % (0.0-10.0); %Neutrophils 83.5 % (42.0-75.0); Hemoglobin 11.9 g/dL (12.0-16.0); Mean Corpuscular HGB CONC 32.1 g/dL (32.0-36.0); Mean Corpuscular Hemoglobin 30.9 pg (27.0-31.0); Mean Corpuscular Volume 96.3 fL (78.0-98.0); Mean Platelet Volume 9.3 fL (7.4-10.4); Platelet Count 128 thou/uL (130-400); RBC Distribution Width 13.9 % (11.5-14.5); Red Blood Cell (RBC) Count 3.85 mill/uL (4.20-5.40); White Blood Cell (WBC) Count 8.5 thou/uL (4.8-10.8)
[2019-04-03] MEDS: ALPRAZolam 0.5 MG TAB PO PRN ×2 (14:33→21:05)
--- NOTE | 2019-04-03 14:35 | PRG ---
DATE OF SERVICE: 04/03/2019 SUBJECTIVE: The patient was seen this morning, lying in bed. Reported she slept well overnight, but was having difficulties voiding. She did have a history of not being able to void previously when she first arrived. UA and culture were sent at that time, which were negative. Reports some epigastric pain, but could not tell me if it was better or worse from yesterday. OBJECTIVE: VITAL SIGNS: Temperature 98.1, pulse 101, respirations 18, oxygen saturation 93% on room air, blood pressure 134/79. GENERAL: Elderly female, lying in bed with no signs of acute distress. PULMONARY: Equal chest rise and fall. Clear breath sounds bilaterally. No signs of acute respiratory distress. CARDIAC: Regular rate and rhythm. No murmurs, gallops, or rubs. GI: Abdomen is soft. Tender in the epigastric region. Nondistended. Surgical sites are clean, dry, and intact. EXTREMITIES: 2+ pulses in all extremities. No significant swelling noted. Gross motor and sensation are intact. NEUROLOGIC: GCS is 15. Pupils are equal, round, and reactive to light bilaterally. LABORATORY DATA: Sodium 133, potassium 3.0, chloride 105, carbon dioxide 20, BUN 8, creatinine 0.64, glucose 103, total bilirubin 1.1, AST 82, ALT 184, alkaline phosphatase 141, lipase 169. DIAGNOSTIC FINDINGS: There are no new diagnostic findings to report. ASSESSMENT: 1. Postop day 3, status post endoscopic retrograde cholangiopancreatography and laparoscopic cholecystectomy. 2. Acute mild chemical pancreatitis, likely contrast induced, improved. 3. Acute hyponatremia, stable. 4. Acute hypophosphatemia. PLAN: We will continue to monitor the patient. Advance to a regular diet. Discontinue IV fluids. Up out of bed, ambulating and in chair at least b.i.d. LFTs have improved. Lipase is downtrending. The patient was discussed with Dr. Hicks before this dictation. Job ID: [id number]
--- NOTE | 2019-04-03 17:00 | PRG ---
DATE OF SERVICE: 04/03/2019 SUBJECTIVE: Ms. Thorpe has had no further nausea or vomiting today. No abdominal pain currently. She has felt anxious today and has not wanted to get out of bed because her bed feels safe and she is worried about walking. She has tolerated her diet, but she has taken very little by mouth. OBJECTIVE: VITAL SIGNS: Temperature 98.3, pulse 88, blood pressure 138/74. GENERAL: She is in no acute distress. Alert and oriented x3. LUNGS: Clear to auscultation bilaterally. HEART: Regular rate and rhythm without murmur. ABDOMEN: Soft, nontender, nondistended. Bowel sounds are present. EXTREMITIES: No lower extremity edema. LABORATORY DATA: Bilirubin 1.1, AST 82, ALT 187, alkaline phosphatase 141, albumin 3.3, lipase 169. IMPRESSION: 1. Ampullary stenosis, status post sphincterotomy. 2. Cholecystitis, status post cholecystectomy. 3. Post endoscopic retrograde cholangiopancreatography pancreatitis, significantly improved. RECOMMENDATIONS: 1. She has been advance to a regular diet. 2. She was encouraged to ambulate. 3. Anticipate discharge home when she is taking adequate oral intake. Job ID: [id number]
[2019-04-03] MEDS: NS 0.9% w/ 20 MEQ KCL 1,000 ML IV SCH (17:51)
[2019-04-03] MEDS: Ondansetron PF 4 MG/2 ML Vial IVP PRN (20:04)
[2019-04-03] MEDS: Enoxaparin Sodium 40 MG/0.4 ML SYRINGE SC SCH (20:56)
[2019-04-03] MEDS: traZODone HCl 50 MG TAB PO SCH (20:58)
[2019-04-04] MEDS: NS 0.9% w/ 20 MEQ KCL 1,000 ML IV SCH (03:00)
[2019-04-04] MEDS: Ondansetron PF 4 MG/2 ML Vial IVP PRN ×2 (09:01→20:33)
[2019-04-04] MEDS: Famotidine 20 MG TAB PO SCH ×3 (09:09→23:20)
[2019-04-04] MEDS: Venlafaxine HCl XR 75 MG CAP PO SCH ×2 (09:09→09:13)
[2019-04-04] MEDS: Topiramate 100 MG TAB PO SCH ×3 (09:09→23:20)
[2019-04-04 10:38] LABS: Anion Gap 10 mmol/L (10-20); BUN (Urea Nitrogen) 5 mg/dL (9.8-20.1); Calc. Creatinine Clearance 87 mL/min (70-130); Calcium 8.4 mg/dL (7.8-10.44); Carbon Dioxide 19 mmol/L (23-31); Chloride 107 mmol/L (98-107); Estimated GFR-MDRD Greater than 90; Glucose 132 mg/dL (83-110); Magnesium 1.5 mg/dL (1.6-2.6); Sodium 133 mmol/L (136-145)
[2019-04-04 10:44] LABS: Phosphorus 1.5 mg/dL (2.3-4.7); Potassium 2.8 mmol/L (3.5-5.1)
--- NOTE | 2019-04-04 11:31 | PRG ---
DATE OF SERVICE: 04/04/2019 SUBJECTIVE: Ms. Musa is a 73-year-old woman. The patient is postoperative day #4 status post laparoscopic cholecystectomy as well as an ERCP. She has recovered from acute post ERCP chemical pancreatitis. This morning, she reports adequate pain control. She has tolerated breakfast. She is overall quite weak and does not participate with physical therapy. She is having normal bowel and urinary function. OBJECTIVE: VITAL SIGNS: This morning includes blood pressure is 135/64, pulse is 92, respiratory rate is 14, and temperature is 98.8 degrees Fahrenheit, which is the maximum temperature in last 24 hours. Oxygen saturation 94% on room air. HEENT: Pupils are equal, round, and reactive to light and accommodation. She has no scleral icterus present. HEART: Reveals regular rate and rhythm. No murmurs or gallops auscultated. LUNGS: Clear to auscultation bilaterally. Breathing, regular and unlabored. ABDOMEN: Soft, nontender, and nondistended. Incisions are intact, clean, and dry. She clearly has no peritoneal signs on examination. NEUROLOGIC: Reveals no focal deficits present. LABORATORY FINDINGS: Today includes metabolic profile; sodium 133, potassium 2.8, chloride is 107, bicarb is 19, BUN is 5, creatinine 0.59, glucose 132, magnesium is 1.5, and phosphorus is 1.5. BNP is 117.8. IMPRESSION: 1. Postop day #4 status post laparoscopic cholecystectomy. 2. Resolved acute chemical pancreatitis. 3. Acute hyponatremia. 4. Acute hypokalemia. 5. Acute hypophosphatemia. 6. Acute hypomagnesemia. PLAN: 1. Correct abnormal electrolytes. 2. Increase activity per Physical and Occupational therapy. 3. Anticipate eventual discharge to inpatient rehabilitation. There is no acute surgical indication for this patient at this time. 4. She is to follow up with me in the [facility] on April 19, 2019 at 2:20 p.m. Job ID: [id number]
--- NOTE | 2019-04-04 12:27 | PRG ---
DATE OF SERVICE: 04/04/2019 SUBJECTIVE: Ms. Thorpe tolerated eggs and toast this morning well. She had some nausea this afternoon and some soreness in her abdomen, but overall is doing much better. OBJECTIVE: VITAL SIGNS: Temperature 98.3, pulse 87, and blood pressure 137/75. GENERAL: She is in no acute distress. She is awake and alert. LUNGS: Clear to auscultation bilaterally. HEART: Regular rate and rhythm. ABDOMEN: Soft. She is tender in the epigastric to periumbilical abdominal area without guarding. Her bowel sounds are active. EXTREMITIES: No lower extremity edema. LABORATORY DATA: Her creatinine is 0.59. IMPRESSION: 1. Cholecystitis, status post cholecystectomy. 2. Ampullary stenosis, status post endoscopic retrograde cholangiopancreatography and sphincterotomy. 3. Post endoscopic retrograde cholangiopancreatography pancreatitis, improved. RECOMMENDATIONS: She is tolerating a solid diet now and she is ambulating. She shows no signs of more severe pancreatitis. She should be ready for discharge soon. I will sign off for now. Please call if GI can be of assistance. Job ID: [id number]
[2019-04-04] MEDS: Potassium Chloride 20 MEQ TAB PO SCH ×3 (12:48→23:21)
--- NOTE | 2019-04-04 15:07 | PDOC.PN ---
- Subjective Encounter Start Date: 04/04/19 Encounter Start Time: 10:45 Subjective: no abd pain or nausea -: feels weak and lethargic - Objective Resuscitation Status - Order Detail: 03/30/19 08:03 Resuscitation Status Routine Resuscitation Status: FULL: Full Resuscitation MAR Reviewed: Yes Vital Signs & Weight: Vital Signs (12 hours) Temp Pulse Resp BP BP BP Pulse Ox 04/04/19 11:19 98.3 F 87 14 137/75 93 L 04/04/19 07:25 98.8 F 92 14 135/64 94 L 04/04/19 07:15 94 L 04/04/19 03:53 98.0 F 99 18 143/77 H 93 L Weight Weight 140 lb 11.2 oz I&O: 04/03/19 04/04/19 04/05/19 06:59 06:59 06:59 Intake Total 1650 3565 170 Output Total 200 2400 Balance 1450 1165 170 Result Diagrams: 04/03/19 13:57 04/04/19 10:05 Phys Exam - Physical Examination HEENT: PERRLA, moist MMs Neck: no JVD, supple Respiratory: no wheezing, no rales Cardiovascular: RRR, no significant murmur Gastrointestinal: soft, non-tender, positive bowel sounds Musculoskeletal: no edema, pulses present Neurological: non-focal, moves all 4 limbs Psychiatric: normal affect Dx/Plan (1) Acute pancreatitis Code(s): K85.90 - ACUTE PANCREATITIS WITHOUT NECROSIS OR INFECTION, UNSP Status: Acute Qualifiers: Pancreatitis type: biliary Acute pancreatitis complication: uninfected necrosis Qualified Code(s): K85.11 - Biliary acute pancreatitis with uninfected necrosis (2) Cholelithiasis with acute cholecystitis Code(s): K80.00 - CALCULUS OF GALLBLADDER W ACUTE CHOLECYST W/O OBSTRUCTION Status: Acute Qualifiers: Biliary obstruction: without biliary obstruction Qualified Code(s): K80.00 - Calculus of gallbladder with acute cholecystitis without obstruction Comment: s/p Lap cholecystectomy, ERCP with sphincterotomy for ampullary stenosis (3) Anxiety and depression Code(s): F41.9 - ANXIETY DISORDER, UNSPECIFIED; F32.9 - MAJOR DEPRESSIVE DISORDER, SINGLE EPISODE, UNSPECIFIED Status: Chronic - Plan hemostable -: pastoral consultation, palliative consultation (per staff pt is not eating -: -much and is wanting to ?), daughter confirms she has not been eating -: well from few months per staff. -: encourage po intake, maybe boost (doesn't like ensure) * . continue seroquel, topamax, trazadone, effexor. Hemostable Review of Systems - Medications/Allergies Allergies/Adverse Reactions: Allergies Allergy/AdvReac Type Severity Reaction Status Date / Time codeine Allergy Verified 03/30/19 06:38 epinephrine Allergy Verified 03/30/19 06:38 iodine Allergy Verified 03/30/19 06:38 meperidine [From Demerol] Allergy Verified 03/30/19 06:38 phenobarbital Allergy Verified 03/30/19 06:38 promethazine [From Phenergan] Allergy Verified 03/30/19 06:38 propoxyphene [From Darvon] Allergy Verified 03/30/19 06:38 Medications: Current Medications Acetaminophen (Tylenol) 650 mg PO Q4H PRN PRN Reason: Headache/Fever/Mild Pain (1-3) Last Admin: 03/31/19 19:05 Dose: 650 mg Alprazolam (Xanax) 0.5 mg PO QIDPRN PRN PRN Reason: Anxiety/Agitation Last Admin: 04/03/19 21:05 Dose: 0.5 mg Bisacodyl (Dulcolax) [address] DAILYPRN PRN PRN Reason: Constipation Calcium Carbonate (Tums) 1,000 mg PO Q4H PRN PRN Reason: Heartburn or Indigestion Diphenhydramine HCl (Benadryl) 50 mg PO Q6H PRN PRN Reason: Itching & Insomnia Last Admin: 03/31/19 20:47 Dose: 50 mg Enoxaparin Sodium (Lovenox) 40 mg SC 2100 THELMA Last Admin: 04/03/19 20:56 Dose: 40 mg Famotidine (Pepcid) 20 mg PO BID THELMA Last Admin: 04/04/19 09:09 Dose: 20 mg Guaifenesin (Robitussin Sf) 200 mg PO Q4H PRN PRN Reason: Cough Hydralazine HCl (Apresoline) 10 mg SLOW IVP Q4H PRN PRN Reason: SBP > 180 and HR < 70 Loperamide HCl (Imodium) 2 mg PO PRN PRN PRN Reason: Diarrhea/Loose Stools Loratadine (Claritin) 10 mg PO DAILYPRN PRN PRN Reason: Sinus Symptoms Last Admin: 03/31/19 19:33 Dose: 10 mg Magnesium Oxide (Magnesium Oxide) 400 mg PO BID [facility] Stop: 04/07/19 09:01 Ondansetron HCl (Zofran Odt) 4 mg PO Q6H PRN PRN Reason: Nausea/Vomiting Last Admin: 04/02/19 04:59 Dose: 4 mg Ondansetron HCl (Zofran) 4 mg IVP Q6H PRN PRN Reason: Nausea/Vomiting Last Admin: 04/04/19 09:01 Dose: 4 mg Phosphorus (Kphos Neutral) 250 mg PO BID-WM [facility], [facility] Stop: 04/06/19 08:01 Potassium Chloride (K-Dur) 40 meq PO Q6H [facility] Stop: 04/05/19 12:01 Last Admin: 04/04/19 12:48 Dose: 40 meq Quetiapine Fumarate (Seroquel) 25 mg PO DAILY [facility] Last Admin: 04/04/19 09:09 Dose: 25 mg Quetiapine Fumarate (Seroquel) 75 mg PO HS [facility] Last Admin: 04/03/19 20:58 Dose: 75 mg Senna/Docusate Sodium (Senokot S) 2 tab PO BID PRN PRN Reason: Constipation Sodium Chloride ([place] Nasal [place] 0.65%) 0 ml EA NARE QIDPRN PRN PRN Reason: Nasal Congestion Sodium Chloride (Flush - Normal Saline) 10 ml IVF Q12HR [facility] Last Admin: 04/04/19 09:09 Dose: Not Given Sodium Chloride (Flush - Normal Saline) 10 ml IVF PRN PRN PRN Reason: Saline Flush Temazepam (Restoril) 15 mg PO HS PRN PRN Reason: Insomnia Last Admin: 04/01/19 21:02 Dose: 15 mg Throat Lozenges (Cepastat Lozenges) 1 kiesha PO Q2H PRN PRN Reason: Sore Throat Topiramate (Topamax) 200 mg PO BID [facility] Last Admin: 04/04/19 09:09 Dose: 200 mg Tramadol HCl (Ultram) 50 mg PO Q6H PRN PRN Reason: Moderate Pain (4-6) Last Admin: 03/31/19 19:06 Dose: 50 mg Tramadol HCl (Ultram) 100 mg PO Q6H PRN PRN Reason: Severe Pain (7-10) Trazodone HCl (Desyrel) 50 mg PO HS [facility] Last Admin: 04/03/19 20:58 Dose: 50 mg Venlafaxine HCl (Effexor Xr) 75 mg PO DAILY [facility] Last Admin: 04/04/19 09:13 Dose: 75 mg
--- NOTE | 2019-04-04 16:27 | PDOC.PALCO ---
Palliative Care Consult - Consult Details Requesting Physician: Dr Barney Reason for Consult: family support, coping issues - Pertinent HPI Presented to emergency room 03/30 with significant right upper quad abdominal pain. Initial evaluation suggested cholelithiasis. Palliative care Consult secondary to significant depression with suicidal ideation. ROS currently patient has limited appetite, denies nausea, constipation, urinary symptoms. States she is depressed and feels "empty". Patient told Palliative Care RN Ashlee Linares she wanted to , however confirmed with me she does not have a plan. Patient states she has had chronic depression and has been on medications for extensive period of time. - Pertinent PMH Acute Pancreatitis without necrosis or infection, Depression, History of DVT with pulmonary emoblism, Benign tumor of upper extremity. - Social History Smoking Status: Never smoker Smoking: no tobacco exposure Alcohol Use: none Drug Use History: none Living Situation: independent - Medications MAR Reviewed: Yes - Allergies Allergies/Adverse Reactions: Allergies Allergy/AdvReac Type Severity Reaction Status Date / Time codeine Allergy Verified 03/30/19 06:38 epinephrine Allergy Verified 03/30/19 06:38 iodine Allergy Verified 03/30/19 06:38 meperidine [From Demerol] Allergy Verified 03/30/19 06:38 phenobarbital Allergy Verified 03/30/19 06:38 promethazine [From Phenergan] Allergy Verified 03/30/19 06:38 propoxyphene [From Darvon] Allergy Verified 03/30/19 06:38 - Subjective Presented to emergency room 03/30 with significant right upper quad abdominal pain. Initial evaluation suggested cholelithiasis. Palliative care Consult secondary to significant depression with suicidal ideation. ROS currently patient has limited appetite, denies nausea, constipation, urinary symptoms. States she is depressed and feels "empty". Patient told Palliative Care RN Ashlee Linares she did not want to live, however confirmed with me she does not have a plan. Patient states she has had chronic depression and has been on medications for extensive period of time. Patient with eyes closed upon my arrival however not sleeping. Awake, alert and oriented. States she is depressed, when asked if she said she did not want to live she confirmed this statement, when asked if she had a plan to injure herself she denied. After visiting 20 minutes patient asked if I would mind leaving and come back tomorrow. - Objective Vital Signs: Vital Signs - Most Recent Temp Pulse Resp BP Pulse Ox 98.3 F 87 14 137/75 93 L 04/04/19 11:19 04/04/19 11:19 04/04/19 11:19 04/04/19 11:19 04/04/19 11:19 Palliative Performance Scale: 60 - Physical Exam Deviation from normal: Weak, pallor HEENT: PERRLA, moist MMs, EOMI Respiratory: no wheezing, unlabored breathing Cardiovascular: RRR Gastrointestinal: soft, non-tender Deviation from normal: Flat affect, depressed - Problem List (1) Palliative care encounter Code(s): Z51.5 - ENCOUNTER FOR PALLIATIVE CARE Current Visit: Yes Status: Acute (2) Anxiety and depression Code(s): F41.9 - ANXIETY DISORDER, UNSPECIFIED; F32.9 - MAJOR DEPRESSIVE DISORDER, SINGLE EPISODE, UNSPECIFIED Current Visit: Yes Status: Chronic - Plan/Recommendations Plan: *Communicated to CM, Palliative Care RN Ashlee Linares, and Dustin Peguero RN patient visit. *Recommend Psych elina / Dustin Peguero RN requesting consult from Dr Barney *Will follow up tomorrow to continue dialogue with patient and provide support in with coping measures through therapeutic listening [60] minutes spent on this encounter with >50% of the time in counseling and coordination of care. Thank you for this very appropriate consult.
[2019-04-04] MEDS: K-Phos Neutral 250 MG TAB PO SCH (18:14)
--- NOTE | 2019-04-04 20:50 | PDOC.EVN ---
Event Note - Event Note Event Note: Notified by RN, patients daughter has called and concerned over patient expressing desire to no longer want to live. Has been expressing similar sentiments with day team. Consult placed to [facility] as was recommended by Palliative Care team.
[2019-04-04] MEDS: traZODone HCl 50 MG TAB PO SCH (21:36)
[2019-04-04] MEDS: Magnesium Oxide 400 MG TAB PO SCH (21:37)
[2019-04-04] MEDS: Enoxaparin Sodium 40 MG/0.4 ML SYRINGE SC SCH (21:37)
[2019-04-04] MEDS: ALPRAZolam 0.5 MG TAB PO PRN (23:24)
[2019-04-05] MEDS: Potassium Chloride 20 MEQ TAB PO SCH ×2 (06:40→13:02)
[2019-04-05 07:34] VITALS: BP 143/73; TEMP 98.7
[2019-04-05 08:59] LABS: Anion Gap 13 mmol/L (10-20); BUN (Urea Nitrogen) 4 mg/dL (9.8-20.1); Calc. Creatinine Clearance 88 mL/min (70-130); Calcium 8.8 mg/dL (7.8-10.44); Carbon Dioxide 17 mmol/L (23-31); Chloride 106 mmol/L (98-107); Estimated GFR-MDRD Greater than 90; Glucose 85 mg/dL (83-110); Potassium 3.9 mmol/L (3.5-5.1); Sodium 132 mmol/L (136-145)
[2019-04-05] MEDS: Topiramate 100 MG TAB PO SCH (09:25)
[2019-04-05] MEDS: Magnesium Oxide 400 MG TAB PO SCH ×2 (09:25→10:10)
[2019-04-05] MEDS: K-Phos Neutral 250 MG TAB PO SCH ×3 (09:25→18:07)
[2019-04-05] MEDS: Famotidine 20 MG TAB PO SCH ×2 (09:25→10:09)
[2019-04-05] MEDS: Venlafaxine HCl XR 75 MG CAP PO SCH (09:26)
[2019-04-05] MEDS: ALPRAZolam 0.5 MG TAB PO PRN ×2 (11:31→19:26)
--- NOTE | 2019-04-05 12:06 | PDOC.HOSPP ---
- Subjective Subjective: still feels suicidal, says was hospitalized 3 months back at [facility] for depression. No abd pain, had her breakfast this am. No bm yet Is ambulating in room - Objective Vital Signs & Weight: Vital Signs (12 hours) Temp Pulse Resp BP Pulse Ox 04/05/19 07:30 98.7 F 93 16 143/73 H 93 L Weight Weight 140 lb 11.2 oz I&O: 04/04/19 04/05/19 04/06/19 06:59 06:59 06:59 Intake Total 3565 570 Output Total 2400 Balance 1165 570 Result Diagrams: 04/03/19 13:57 04/05/19 08:06 ROS - Review of Systems All systems: All other ROS were reviewed and found negative. - Medication Medications: Active Medications Generic Name Dose Route Start Last Admin Trade Name Freq PRN Reason Stop Dose Admin Acetaminophen 650 mg 03/30/19 08:08 03/31/19 19:05 Tylenol PO 650 mg Q4H PRN Administration Headache/Fever/Mild Pain (1-3) Alprazolam 0.5 mg 04/02/19 10:52 04/05/19 11:31 Xanax PO 0.5 mg QIDPRN PRN Administration Anxiety/Agitation Diphenhydramine HCl 50 mg 03/31/19 19:37 03/31/19 20:47 Benadryl PO 50 mg Q6H PRN Administration Itching & Insomnia Enoxaparin Sodium 40 mg 03/30/19 21:00 04/04/19 21:37 Lovenox SC 40 mg 2100 THELMA Administration Famotidine 20 mg 03/30/19 09:00 04/05/19 10:09 Pepcid PO Not Given BID THELMA Loratadine 10 mg 03/30/19 08:08 03/31/19 19:33 Claritin PO 10 mg DAILYPRN PRN Administration Sinus Symptoms Magnesium Oxide 400 mg 04/04/19 21:00 04/05/19 10:10 Magnesium Oxide PO 04/07/19 09:01 Not Given BID THELMA Ondansetron HCl 4 mg 03/30/19 08:08 04/02/19 04:59 Zofran Odt PO 4 mg Q6H PRN Administration Nausea/Vomiting Ondansetron HCl 4 mg 03/30/19 08:08 04/04/19 20:33 Zofran IVP 4 mg Q6H PRN Administration Nausea/Vomiting Phosphorus 250 mg 04/05/19 08:00 04/05/19 09:25 Kphos Neutral PO 04/06/19 17:01 250 mg BID-WM THELMA Administration Quetiapine Fumarate 25 mg 03/31/19 09:00 04/05/19 09:25 Seroquel PO 25 mg DAILY THELMA Administration Sodium Chloride 10 ml 03/30/19 09:00 04/05/19 09:26 Flush - Normal Saline IVF 10 ml Q12HR THELMA Administration Topiramate 200 mg 03/30/19 21:00 04/05/19 09:25 Topamax PO 200 mg BID THELMA Administration Tramadol HCl 50 mg 03/31/19 14:58 03/31/19 19:06 Ultram PO 50 mg Q6H PRN Administration Moderate Pain (4-6) Trazodone HCl 50 mg 03/31/19 21:00 04/04/19 21:36 Desyrel PO 50 mg HS THELMA Administration Venlafaxine HCl 75 mg 03/31/19 09:00 04/05/19 09:26 Effexor Xr PO 75 mg DAILY THELMA Administration - Exam awake alert Eye: PERRL ENT: no oropharyngeal lesions, dry oral mucosa Neck: supple, no JVD Heart: RRR, no gallops Respiratory: no wheezes, no rales Gastrointestinal: soft, non-distended, normal bowel sounds Extremities: no cyanosis, no edema Skin: no lesions, no rashes Neurological: CN's grossly intact, no focal deficits Musculoskeletal: normal tone, no muscle wasting Psychiatric: A&O x 3 Hosp A/P (1) Acute pancreatitis Code(s): K85.90 - ACUTE PANCREATITIS WITHOUT NECROSIS OR INFECTION, UNSP Status: Resolved Qualifiers: Pancreatitis type: biliary Acute pancreatitis complication: uninfected necrosis Qualified Code(s): K85.11 - Biliary acute pancreatitis with uninfected necrosis (2) Cholelithiasis with acute cholecystitis Code(s): K80.00 - CALCULUS OF GALLBLADDER W ACUTE CHOLECYST W/O OBSTRUCTION Status: Resolved Qualifiers: Biliary obstruction: without biliary obstruction Qualified Code(s): K80.00 - Calculus of gallbladder with acute cholecystitis without obstruction (3) Anxiety and depression Code(s): F41.9 - ANXIETY DISORDER, UNSPECIFIED; F32.9 - MAJOR DEPRESSIVE DISORDER, SINGLE EPISODE, UNSPECIFIED Status: Chronic - Plan D/w [facility], will likely need to be placed in inpt psych unit for severe depression. will d/w daughter shortly. continue home dose of seroquel, topamax and effexor Electrolytes are stable this am. PT to mobilize as tolerated, says she is amb in room.
[2019-04-05] MEDS: Ondansetron ODT 4 MG TAB PO PRN (17:22)
--- NOTE | 2019-04-06 10:55 | DIS ---
DATE OF ADMISSION: 03/30/2019 DATE OF DISCHARGE: 04/05/2019 DISPOSITION: Discharge disposition is to inpatient psychiatric unit at [facility]. PRIMARY DISCHARGE DIAGNOSES: Severe depression with suicidal ideation; acute cholecystitis with pancreatitis and cholelithiasis, status post laparoscopic cholecystectomy; anxiety disorder. PROCEDURES DONE DURING HOSPITALIZATION: Right upper quadrant ultrasound done on the day of admission showed cholelithiasis with gallbladder sludge. There was mild wall thickening and a positive Finney sign. Common bile duct was 7 mm. No focal hepatic lesion or evidence of ascites was seen. The gallbladder was moderately distended. The patient had laparoscopic cholecystectomy done on 03/31/[address] Hicks. 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 Cem Peguero on 03/30/2019. There were normal intra and extrahepatic ducts with no obvious filling defect on the cholangiogram on the ERCP. Cystic duct was patent. Gallbladder histopathology showed findings of chronic cholecystitis, cholelithiasis, and cholesterolosis. Blood cultures x2, no growth. Urine culture, no growth. H and H on the were 11 and 37, platelet count 128, MCV 96, white count of 8.5 on the day of discharge. Discharge BUN and creatinine 4 and 0.5. Admitting AST was 545, total bilirubin of 2.0, ALT 265, alkaline phosphatase 119. Troponin x1 negative. Albumin 3.9. Lipase was 44. Acute hepatitis panel was nonreactive. INPATIENT CONSULT: Dr. Cem Peguero for Gastroenterology and Dr. Hicks for General Surgery. DISCHARGE MEDICATIONS: 1. Motrin p.r.n. for pain. 2. Xanax 1 mg twice daily. 3. Seroquel 25 mg p.o. daily and 75 mg p.o. nightly. 4. Restoril 15 mg p.o. nightly p.r.n. 5. Topamax 200 mg p.o. twice daily. 6. Effexor extended release 75 mg p.o. daily. ALLERGIES: ALLERGIC TO CODEINE, EPINEPHRINE, IODINE, MEPERIDINE, PHENOBARBITAL, PHENERGAN, AND DARVON. DISCHARGE PLAN: The patient is being discharged to [facility] inpatient psychiatric unit for severe depression and suicidal ideation. BRIEF COURSE DURING HOSPITALIZATION: The patient initially got admitted on the after she was sent over from her assisted living facility with complaints of right upper quadrant pain. She also had nausea and vomiting at home. Initial workup revealed acute cholecystitis with elevated LFTs and total bilirubin. The patient has had initial ERCP done where she was found to have had ampullary stenosis with complete dilatation done and free flow of bile. Cholangiogram did not reveal any stone in the common bile duct. She was taken for laparoscopic cholecystectomy following ERCP by Dr. Hicks and this was done successfully. Postoperatively, the patient was recovering well. She suddenly developed symptoms of depression with suicidal ideation. The patient stated she has had consultation with palliative care and [facility]. Pastoral Care consultation was also requested. Ms. Thorpe has known history of recurrent episodes of severe depression in the past and has had prior hospitalization to inpatient psychiatric unit for the same. In view of the patient's suicidal ideation and depression and the patient not wanting to eat more than 20% to 25% of her food, she is being discharged to inpatient psychiatric unit for further counseling and help with her severe depression. She has been accepted to [facility] inpatient psychiatric unit and will be shortly discharged. A total of 35 minutes was spent on discharge plan. I have given complete updates to the psychiatrist inspection supervisor at [facility] Unit. Please see a [id number] documentation for the day of discharge on [place]. Job ID: [id number]
== END 2019-04-05 20:00 | disposition short-term general hospital (02) | DRG 417 ==
LOC: ERS 03:26 → SURG A 06:29
PROVIDERS: ADMIT Family Medicine; ATTEND Family Medicine
PROC: 0FT44ZZ Resection of Gallbladder, Percutaneous Endoscopic Approach (ICD-10-PCS; principal; 2019-03-31)
PROC: 0F798ZZ Dilation of Common Bile Duct, Via Natural or Artificial Opening Endoscopic (ICD-10-PCS; 2019-03-31)
DX: K80.01 Calculus of gallbladder with acute cholecystitis with obstruction (principal); K85.11 Biliary acute pancreatitis with uninfected necrosis; E87.1 Hypo-osmolality and hyponatremia; K91.89 Other postprocedural complications and disorders of digestive system; Z51.5 Encounter for palliative care; E87.6 Hypokalemia; E83.39 Other disorders of phosphorus metabolism; E83.42 Hypomagnesemia; D69.6 Thrombocytopenia, unspecified; D72.819 Decreased white blood cell count, unspecified; F41.9 Anxiety disorder, unspecified; F32.9 Major depressive disorder, single episode, unspecified; F43.10 Post-traumatic stress disorder, unspecified; J45.909 Unspecified asthma, uncomplicated; Z86.718 Personal history of other venous thrombosis and embolism; Z86.711 Personal history of pulmonary embolism; Z88.5 Allergy status to narcotic agent; Z88.8 Allergy status to other drugs, medicaments and biological substances; Z90.710 Acquired absence of both cervix and uterus; Z90.89 Acquired absence of other organs; Y83.8 Other surgical procedures as the cause of abnormal reaction of the patient, or of later complication, without mention of misadventure at the time of the procedure
CPT/HCPCS: 36415; 51701; 74330; 76705; 78227; 80048; 80053; 80074; 80307; 81003; 81015; 83690; 83735; 83880; 84100; 84484; 85025; 87040; 87086; 88304; 93005; 96361; 96365; 96372; 96374; 96375; 96376; A4353; A9537; J0131; J0500; J0694; J0696; J1100; J1650; J1885; J1956; J2001; J2060; J2270; J2405; J2704; J2765; J3010; J3480; J3490; J7050; Q0162; Q0163; Q9967; S0028

== ENCOUNTER 2020-08-23 13:59 | Inpatient (IN) | payer MEDICARE ==
[~2020-08-23 13:59] MED LIST: Iopamidol-370 76% 500 ML 1 ML ONE
[2020-08-23 14:43] LABS: #Eosinphils 0.1 thou/uL (0.0-0.7); #Lymphocytes 1.4 thou/uL (1.20-3.40); #Monocytes 0.2 thou/uL (0.11-0.59); #Neutrophils 2.5 thou/uL (1.40-6.50); %Basophils 0.3 % (0.0-1.0); %Lymphocytes 33.4 % (21.0-51.0); %Monocytes 5.5 % (0.0-10.0); %Neutrophils 58.8 % (42.0-75.0); Hemoglobin 12.3 g/dL (12.0-16.0); Mean Corpuscular HGB CONC 33.7 g/dL (32.0-36.0); Mean Corpuscular Hemoglobin 32.1 pg (27.0-31.0); Mean Corpuscular Volume 95.3 fL (78.0-98.0); Mean Platelet Volume 7.8 fL (7.4-10.4); Platelet Count 180 thou/uL (130-400); RBC Distribution Width 12.2 % (11.5-14.5); Red Blood Cell (RBC) Count 3.83 mill/uL (4.20-5.40); White Blood Cell (WBC) Count 4.3 thou/uL (4.8-10.8)
[2020-08-23] MEDS ORDERED: methylPREDNISolone Sod Succ 40 MG VIAL ONE (15:01)
[2020-08-23] MEDS ORDERED: diphenhydrAMINE 50 MG/ML VIAL ONE (15:01)
[2020-08-23] MEDS ORDERED: Famotidine/PF 20 mg/2ml Vial ONE (15:01)
--- NOTE | 2020-08-23 15:01 | CT ---
CT head noncontrast HISTORY: Fall. Head injury. Syncope. COMPARISON: Multiple exams back to 02/14/2019. FINDINGS: There is no evidence of acute intracranial hemorrhage or infarct. The ventricles appear nor mal in size, shape and position. There is no mass effect or shift of midline structures. Visualized paranasal sinuses remain well aerated. IMPRESSION : No abnormalities are demonstrated.
[2020-08-23 15:05] LABS: ALT (SGPT) 10 U/L (8-55); AST (SGOT) 16 U/L (5-34); Albumin 4.5 g/dL (3.4-4.8); Alkaline Phosphatase 100 U/L (40-110); Anion Gap 11 mmol/L (10-20); BUN (Urea Nitrogen) 19 mg/dL (9.8-20.1); Bilirubin, Total 0.3 mg/dL (0.2-1.2); Calc. Creatinine Clearance 0 mL/min (70-130); Calcium 9.3 mg/dL (7.8-10.44); Carbon Dioxide 27 mmol/L (23-31); Chloride 107 mmol/L (98-107); Globulin 2.7 g/dL (2.4-3.5); Glucose 84 mg/dL (83-110); Magnesium 2.2 mg/dL (1.6-2.6); Potassium 4.1 mmol/L (3.5-5.1); Protein, Total 7.2 g/dL (6.0-8.3); Sodium 141 mmol/L (136-145)
--- NOTE | 2020-08-23 15:08 | CT ---
CT facial bones noncontrast HISTORY: Fall. Injury. FINDINGS: Minimal fluid in the dependent portion of the left maxillary sinus. The mandible, globes, a nd zygomatic arches are intact. No acute fracture or dislocation. Soft tissue density fills each external auditory canal. The mastoid air cells and middle ear cavities remain well-aerated. Tiny embedded hyperdense foci within the subcutaneous tissues of the forehead and nasal bridge are unchanged from the prior CT head 11/04/2019. IMPRESSION : No acute abnormalities are demonstrated.
--- NOTE | 2020-08-23 15:54 | CT ---
CT CERVICAL SPINE WITHOUT CONTRAST: 08/23/20 COMPARISON: None. HISTORY: Fall with syncope. Neck pain. TECHNIQUE: Multiple contiguous axial images were obtained in a CT of the cervical spine without contrast. Sagitt al and coronal reformats were performed. FINDINGS: There are mild degenerative changes in the cervical spine. The vertebral bodies demonstrate normal he ight and alignment without fracture or subluxation. No prevertebral soft tissue swelling is seen. The posterior facets are well aligned. Normal alignment of the skull base with the cervical spine is seen. The lung apices are unremarkable. Calcifications are seen in the carotid arteries. IMPRESSION: No evidence of acute osseous abnormality of the cervical spine. POS: EAA
--- NOTE | 2020-08-23 16:06 | CT ---
CT OF THE CHEST, ABDOMEN AND PELVIS WITH IV CONTRAST CT OF THE THORACIC AND LUMBAR SPINE WITH CONTRAST INDICATION: History of fall COMPARISON: None. FINDINGS: CHEST: Lungs:Clear. Heart and great vessels:No acute traumatic injury seen. Pleural space: No pneumothorax or effusion. Additional findings: ABDOMEN: Liver:Normal appearing. Spleen:Normal appearing. Pancreas:Normal appearing. Adrenal Glands:Normal appearing. Kidneys:There are extrarenal pelves bilaterally. There is very slight prominence of the right renal c ollecting system. Aorta:Normal appearing. Additional findings: No free fluid or free air. PELVIS: Bowel:There is a moderate amount retained stool within colon Bladder:There is moderate to prominent distention of the bladder Reproductive structures:Normal appearing. Rectum and perirectal soft tissues:Normal appearing. Additional findings: No free fluid or free air. OSSEOUS STRUCTURES: No acute osseous abnormality. There is scattered degenerative and osteoarthritic changes. THORACIC AND LUMBAR SPINE: No acute fracture or subluxation. IMPRESSION: 1. No acute traumatic injury seen involving the chest, abdomen or pelvis. 2. Moderate to prominent distention of the bladder with mild right hydronephrosis. Recommend decompre ssion of the bladder and a repeat renal ultrasound to document resolution of the mild right hydronephrosis. 3. Moderate amount retained stool within colon.
[2020-08-23] MEDS ORDERED: Boostrix 0.5 ML (Tdap) VIAL ONE (16:36)
[2020-08-23] MEDS ORDERED: Acetaminophen 650 MG Suppository PR PRN (18:00)
[2020-08-23] MEDS ORDERED: Docusate Sodium 100 MG/10 ML UDCUP PO PRN (19:00)
[2020-08-23] MEDS ORDERED: Docusate Sodium 100 MG/10 ML UDCUP PO SCH (19:00)
--- NOTE | 2020-08-23 20:33 | PDOC.HHP ---
Hospitalist HPI - History of Present Illness History of Present Illness: ADMISSION DATE: 08/23/2020 TIME OF ASSESSMENT: 1700 PRIMARY CARE PHYSICIAN: Dr. Yanes CHIEF COMPLAINT: Syncope HPI: This is a 75-year-old woman who was brought into the emergency department after having a syncopal episode at home and a second syncopal episode with EMS. She states she recalls feeling lightheaded when she stood up from her bed and then the next and she remembers was laying on the ground. Reports feeling tears on her face but when she looked it was blood from an abrasion on the bridge of her nose. Currently she reports discomfort in both knees and just feels generally sore but denies any significant pain elsewhere. Does not recall experiencing any preceding chest pain palpitations or shortness of breath. Denies any spinning sensation or dizziness. Has not had any cough or hemoptysis. Denies any fevers chills or sweats. Her only complaint these last few days has been difficulty with emptying her bladder. She states it has actually been going on for the last month. She is unable to urinate until she gets full enough to the point that she feels her bladder is going to explode requiring her to close her legs in order to not have subsequent incontinence. Even when she does eventually empty her bladder she states it is small amounts. Has not experienced any dysuria. States she has never had issues with urination in the past. She is unsure for how long she was out and her fall was unwitnessed. She feels it was not for a long period of time. States she had a fall 1 week ago while she was in the bathroom. She states she suddenly felt lightheaded and started to fall backwards but caught herself. She did not lose consciousness at that time and denies any major injuries. ED COURSE: Her vitals with EMS were unremarkable. Patient had an EKG done showing normal sinus rhythm with a heart of 72. Laboratory studies demonstrated a white cell count of 4.3, hemoglobin 12.3, crit 36.5, platelets 180, neutrophils 58.8%. Sodium 141, Potassium 4.1, BUN 19, Creatinine 62, glucose 84, Mg+ 2.2, LFTs normal. Troponin negative x 3. CT head, facial bones and C-spine showed no acute abnormalities. CT chest abdomen and pelvis was also done with contrast. She was noted to have no acute traumatic injury involving the chest abdomen or pelvis. There was moderate to prominent distention of the bladder with mild right hydronephrosis. Moderate amount of retained stool noted within the colon. Patient given Pepcid 20 mg IV and Benadryl 50 mg IV as well as Solu-Medrol 40 mg IV. This was in preparation for the CT imaging given history of iodine contrast allergy. She had a tetanus booster given and received 1 L of normal saline. PAST MEDICAL HISTORY: 1. 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 Essential tremor 3. Anxiety 4. Depression 5. PTSD 6. Syncope 7. Asthma PAST SURGICAL HISTORY: 1. Tonsillectomy 2. Bilateral wrist reduction 3. Hysterectomy SOCIAL HISTORY: Patient lives alone and she is fully dependent. She does not require any assistive devices when mobilizing. Denies any tobacco use alcohol consumption or drug use. FAMILY HISTORY: Noncontributory ALLERGIES: 1. Codeine 2. Darvon 3. Demerol 4. Epinephrine 5. Iodine 6. Meperidine 7. Phenergan 8. Phenobarbital 9. Promethazine 10. Propoxyphene CURRENT MEDICATIONS: 1. Alprazolam 1 mg p.o. twice daily 2. Topamax 200 mg p.o. twice daily - Exam General Appearance: NAD, awake alert General - other findings: VS: Temp 97.8, HR 80, BP 143/59, RR 18, O2 sat 99% on room air Eye: PERRL, anicteric sclera ENT: no oropharyngeal lesions, moist mucosa ENT - other findings: abrasion to bridge of nose, mild swelling, dry blood in nares,normal septum Neck: supple, no lymphadenopathy Heart: RRR, normal peripheral pulses Respiratory: CTAB, no wheezes, no rales, normal chest expansion Gastrointestinal: soft, non-tender, non-distended, normal bowel sounds Extremities: no edema Skin: normal turgor, no lesions, no rashes Neurological: cranial nerve grossly intact, no weakness Musculoskeletal: normal tone, normal strength, no muscle wasting Psychiatric: normal affect, normal behavior, A&O x 3 Hospitalist Results - Labs Result Diagrams: 08/23/20 14:32 08/23/20 14:32 Lab results: WBC 4.3 thou/uL (4.8-10.8) L 08/23/20 14:32 Hgb 12.3 g/dL (12.0-16.0) 08/23/20 14:32 Hct 36.5 % (36.0-47.0) 08/23/20 14:32 MCV 95.3 fL (78.0-98.0) 08/23/20 14:32 Plt Count 180 thou/uL (130-400) 08/23/20 14:32 Neutrophils % 58.8 % (42.0-75.0) 08/23/20 14:32 Sodium 141 mmol/L (136-145) 08/23/20 14:32 Potassium 4.1 mmol/L (3.5-5.1) 08/23/20 14:32 Chloride 107 mmol/L (98-107) 08/23/20 14:32 Carbon Dioxide 27 mmol/L (23-31) 08/23/20 14:32 BUN 19 mg/dL (9.8-20.1) 08/23/20 14:32 Creatinine 0.89 mg/dL (0.6-1.1) 08/23/20 14:32 Glucose 84 mg/dL (83-110) 08/23/20 14:32 Calcium 9.3 mg/dL (7.8-10.44) 08/23/20 14:32 Total Bilirubin 0.3 mg/dL (0.2-1.2) 08/23/20 14:32 AST 16 U/L (5-34) 08/23/20 14:32 ALT 10 U/L (8-55) 08/23/20 14:32 Alkaline Phosphatase 100 U/L (40-110) 08/23/20 14:32 Creatine Kinase 67 U/L (29-168) 08/23/20 19:09 CK-MB (CK-2) 1.0 ng/mL (0-6.6) 08/23/20 19:09 Troponin I 0.010 ng/mL (< 0.028) 08/23/20 19:09 Serum Total Protein 7.2 g/dL (6.0-8.3) 08/23/20 14:32 Albumin 4.5 g/dL (3.4-4.8) 08/23/20 14:32 - Radiology Interpretation CT scan - head Status: report reviewed by me CT scan - abdomen Status: report reviewed by me Hospitalist H&P A/P - Problem (1) Syncope Code(s): R55 - SYNCOPE AND COLLAPSE Status: Acute (2) Head injury Code(s): S09.90XA - UNSPECIFIED INJURY OF HEAD, INITIAL ENCOUNTER Status: Acute (3) Injury to nose Code(s): S09.92XA - UNSPECIFIED INJURY OF NOSE, INITIAL ENCOUNTER Status: Acute (4) Urine retention Code(s): R33.9 - RETENTION OF URINE, UNSPECIFIED Status: Acute (5) Fecal retention Code(s): K59.00 - CONSTIPATION, UNSPECIFIED Status: Acute (6) Asthma Code(s): J45.909 - UNSPECIFIED ASTHMA, UNCOMPLICATED Status: Chronic (7) Personal history of DVT (deep vein thrombosis) Code(s): Z86.718 - PERSONAL HISTORY OF OTHER VENOUS THROMBOSIS AND EMBOLISM Status: Chronic (8) Anxiety and depression Code(s): F41.9 - ANXIETY DISORDER, UNSPECIFIED; F32.9 - MAJOR DEPRESSIVE DISORDER, SINGLE EPISODE, UNSPECIFIED Status: Chronic - Plan Plan: Patient with syncope x 2 today, once at home and once with EMS. Sustained a facial/head injury while at home and has bruising/abrasion to nose, with evidence of epistaxis that has settled. CT head, cspine and facial bones are unremarkable for acute abnormalities. CT C/A/P done due to suprapubic dis comfort and history of PE (no longer on anticoagulation) notable for distended bladder with mild right hydronephrosis. Patient endorses a month long history of urine retention with overflow incontinence. Also noted was moderate fecal retention. Admitted for the followin. Syncope: Continue cardiac monitoring Trend troponins Orthostatic BPs Echo ordered Rule out underlying UTI PT/OT consulted 2. Urine retention - possibly secondary to UTI vs. fecal retention/constipation. Fragoso catheter and UA/UCx pending Will start flomax 3. Fecal retension: Stool softeners. 4. Head Injury/Facial injury - stable, tylenol PRN for pain 5. Asthma- Resume inhalers. 6. Anxiety/Depression- Resume home meds once verified. 7. DVT Prophylaxis with mechanical SCDs. 8. CODE STATUS FULL Case discussed with Dr. Leavitt who agrees with plan as above.
[2020-08-23 21:54] VITALS: BMI 24.3
[2020-08-23] MEDS: Acetaminophen 325 MG TAB PO PRN (22:25)
[2020-08-23 22:46] LABS: Troponin I 0.011 ng/mL (< 0.028)
[2020-08-24 00:23] LABS: Bacteria/HPF None Seen HPF (None Seen); Bilirubin Negative (Negative); Blood, Urine Negative (Negative); Clarity Clear (Clear); Glucose, Urine (Dipstick) Normal (Negative); Ketone, Urine Negative (Negative); Leukocyte Negative Leu/uL (Negative); Nitrite Negative (Negative); Protein, Urine (Dipstick) Negative (Neg-Trace); RBC/HPF 0-3 HPF (0-3); Specific Gravity, Urine 1.012 (1.002-1.036); Squamous Epithelial None Seen HPF (0-3); Urobilinogen Normal mg/dL (Less than 2); WBC/HPF None Seen HPF (0-3)
[2020-08-24 00:26] LABS: Urine Culture Reflex No No
[2020-08-24 04:37] LABS: #Lymphocytes 0.8 thou/uL (1.20-3.40); #Monocytes 0.3 thou/uL (0.11-0.59); #Neutrophils 4.5 thou/uL (1.40-6.50); %Basophils 0.3 % (0.0-1.0); %Eosinophils 0.2 % (0.0-10.0); %Lymphocytes 14.9 % (21.0-51.0); %Monocytes 4.7 % (0.0-10.0); Mean Corpuscular HGB CONC 33.6 g/dL (32.0-36.0); Mean Corpuscular Hemoglobin 32.2 pg (27.0-31.0); Mean Corpuscular Volume 95.8 fL (78.0-98.0); Mean Platelet Volume 8.1 fL (7.4-10.4); Platelet Count 173 thou/uL (130-400); RBC Distribution Width 12.2 % (11.5-14.5); Red Blood Cell (RBC) Count 3.42 mill/uL (4.20-5.40); White Blood Cell (WBC) Count 5.6 thou/uL (4.8-10.8)
[2020-08-24 04:52] LABS: Anion Gap 11 mmol/L (10-20); BUN (Urea Nitrogen) 12 mg/dL (9.8-20.1); Calc. Creatinine Clearance 64 mL/min (70-130); Calcium 8.5 mg/dL (7.8-10.44); Carbon Dioxide 21 mmol/L (23-31); Chloride 113 mmol/L (98-107); Glucose 128 mg/dL (83-110); Potassium 3.9 mmol/L (3.5-5.1); Sodium 141 mmol/L (136-145)
[2020-08-24] MEDS ORDERED: FLU VACC QS2020-21(65YR UP)/PF 240 MCG/0.7 ML SYRINGE IM ONE (09:00)
[2020-08-24 09:18] LABS: SARS-CoV-2 MS2 Positive; SARS-CoV-2 N Gene Negative; SARS-CoV-2 S Gene Negative; SARS-CoV-2 by NAA Not Detected (NotDetected); SARS-CoV-2 orf1ab Negative
[2020-08-24] MEDS: predniSONE 5 MG TAB PO SCH (09:59)
[2020-08-24] MEDS: Aripiprazole 10 MG TAB PO SCH (09:59)
[2020-08-24] MEDS: Topiramate 100 MG TAB PO SCH ×2 (10:00→21:55)
[2020-08-24] MEDS: Venlafaxine HCl XR 75 MG CAP PO SCH (10:00)
--- NOTE | 2020-08-24 14:55 | CON ---
NEUROLOGY CONSULTATION DATE OF CONSULTATION: 08/24/2020 REASON FOR CONSULTATION: Syncope, status post fall. HISTORY OF PRESENT ILLNESS: Ms. Thorpe is a 75-year-old female with medical history significant for depression, PTSD, syncope, asthma, essential tremor, who presented to the emergency room having a syncopal episode at home and a second syncopal episode. When the EMS arrived, the patient recalled having lightheaded and then she fell to the ground. She reported injuries to her face and when she looked there was an abrasion on the bridge of her nose and she had blood all over. The patient denies feeling any aura, focal weakness, nausea, vomiting, headache, chest pain, abdominal pain associated with the episode. Per the patient, this is her fifth fall in the recent month. She was also unable to urinate and when she came to the emergency room, she had distended bladder. The patient also has problem with constipation and ongoing memory issues including rhythmic tremor of the right leg, and she does have gait instability and noted to take small steps. REVIEW OF SYSTEMS: All systems reviewed and were negative except the pertinent positives and negatives mentioned in the HPI. PAST MEDICAL HISTORY: Left lower extremity DVT years ago, not on anticoagulation; essential tremor; anxiety; depression; PTSD; syncope; asthma. PAST SURGICAL HISTORY: Tonsillectomy, bilateral breast reduction, hysterectomy. SOCIAL HISTORY: The patient lives alone and lives independently. She does not require any assistive devices for mobilizing. She denies tobacco, alcohol, or illegal drug use. FAMILY HISTORY: No significant family history. ALLERGIES: CODEINE, DARVON, DEMEROL, EPINEPHRINE, IODINE, MEPERIDINE, PHENERGAN, PHENOBARBITAL, PROMETHAZINE, PROPOXYPHENE. CURRENT MEDICATIONS: 1. Alprazolam. 2. Topamax. PHYSICAL EXAMINATION: VITAL SIGNS: Blood pressure 143/59, respiratory rate 18, heart rate is 80. General Appearance: NAD, awake alert Eye: PERRL, anicteric sclera ENT: no oropharyngeal lesions, moist mucosa ENT - other findings: abrasion to bridge of nose, mild swelling, dry blood in nares,normal septum Neck: supple, no lymphadenopathy Heart: RRR, normal peripheral pulses Respiratory: CTAB, no wheezes, no rales, normal chest expansion Gastrointestinal: soft, non-tender, non-distended, normal bowel sounds Extremities: no edema Skin: normal turgor, no lesions, no rashes Neurological: Mental status: The patient is alert and oriented to person, place, and time. Speech is clear. Cranial nerves 2 through 12 intact. Motor, muscle bulk is normal, moving all 4 extremities equally and symmetrically. The patient has positive cogwheel rigidity and rhythmic tremor of the right leg. Gait deferred due to patient's safety reasons. DATA REVIEWED: I reviewed the labs which were essentially unremarkable. Head CT did not reveal acute intracranial pathology. Lab results: WBC 4.3 thou/uL (4.8-10.8) L 08/23/20 14:32 Hgb 12.3 g/dL (12.0-16.0) 08/23/20 14:32 Hct 36.5 % (36.0-47.0) 08/23/20 14:32 MCV 95.3 fL (78.0-98.0) 08/23/20 14:32 Plt Count 180 thou/uL (130-400) 08/23/20 14:32 Neutrophils % 58.8 % (42.0-75.0) 08/23/20 14:32 Sodium 141 mmol/L (136-145) 08/23/20 14:32 Potassium 4.1 mmol/L (3.5-5.1) 08/23/20 14:32 Chloride 107 mmol/L (98-107) 08/23/20 14:32 Carbon Dioxide 27 mmol/L (23-31) 08/23/20 14:32 BUN 19 mg/dL (9.8-20.1) 08/23/20 14:32 Creatinine 0.89 mg/dL (0.6-1.1) 08/23/20 14:32 Glucose 84 mg/dL (83-110) 08/23/20 14:32 Calcium 9.3 mg/dL (7.8-10.44) 08/23/20 14:32 Total Bilirubin 0.3 mg/dL (0.2-1.2) 08/23/20 14:32 AST 16 U/L (5-34) 08/23/20 14:32 ALT 10 U/L (8-55) 08/23/20 14:32 Alkaline Phosphatase 100 U/L (40-110) 08/23/20 14:32 Creatine Kinase 67 U/L (29-168) 08/23/20 19:09 CK-MB (CK-2) 1.0 ng/mL (0-6.6) 08/23/20 19:09 Troponin I 0.010 ng/mL (< 0.028) 08/23/20 19:09 Serum Total Protein 7.2 g/dL (6.0-8.3) 08/23/20 14:32 Albumin 4.5 g/dL (3.4-4.8) 08/23/20 14:32 - Radiology Interpretation CT scan - head Status: report reviewed by me CT scan - abdomen Status: report reviewed by me ASSESSMENT AND PLAN: (1) Syncope Code(s): R55 - SYNCOPE AND COLLAPSE Status: Acute (2) Head injury Code(s): S09.90XA - UNSPECIFIED INJURY OF HEAD, INITIAL ENCOUNTER Status: Acute (3) Injury to nose Code(s): S09.92XA - UNSPECIFIED INJURY OF NOSE, INITIAL ENCOUNTER Status: Acute (4) Urine retention Code(s): R33.9 - RETENTION OF URINE, UNSPECIFIED Status: Acute (5) Fecal retention Code(s): K59.00 - CONSTIPATION, UNSPECIFIED Status: Acute (6) Asthma Code(s): J45.909 - UNSPECIFIED ASTHMA, UNCOMPLICATED Status: Chronic (7) Personal history of DVT (deep vein thrombosis) Code(s): Z86.718 - PERSONAL HISTORY OF OTHER VENOUS THROMBOSIS AND EMBOLISM Status: Chronic (8) Anxiety and depression Code(s): F41.9 - ANXIETY DISORDER, UNSPECIFIED; F32.9 - MAJOR DEPRESSIVE DISORDER, SINGLE EPISODE, UNSPECIFIED Status: Chronic Ms. Musa is consulted for syncopal episode status post fall. This is her fifth fall in the recent months. The patient does exhibit symptoms signs of Parkinson disease. The patient is seen in conjunction with Dr. Curiel and a long discussion has been done about the presentation of Parkinson disease and her need to follow it up as outpatient. Neuro checks every 4 hours. Continue home medications. Continue medical management per primary team. 2D echo results reviewed, which were essentially unremarkable. No further recommendations from Neurology perspective as inpatient. Thank you for the consult. Job ID: [id number] [facility]
[2020-08-24] MEDS ORDERED: Polyethylene Glycol 3350 17 GM Packet PO PRN (17:15)
--- NOTE | 2020-08-24 17:18 | PDOC.HOSPP ---
- Subjective Encounter Date: 08/24/20 Subjective: Patient reports she is feeling somewhat better. She reports that this is her fourth fall. She believes she is losing consciousness with these falls. She has no advanced warning. In our discussion she endorsed that she had a "essential tremor". She also endorsed that she has a shuffling gait, worsening problems with constipation over the last year and has increasing difficulty with emptying her bladder. She says in the past she has had 2 physicians told her that she had Parkinson's disease and 2 others told her she did not. - Objective Vital Signs & Weight: Vital Signs (12 hours) Temp Pulse Pulse Pulse Pulse Pulse Resp 08/24/20 16:10 98.2 F 69 16 08/24/20 12:00 97.7 F 87 16 08/24/20 11:00 72 73 92 79 08/24/20 07:50 98 F 98 18 BP BP BP BP BP BP BP 08/24/20 16:10 110/52 L 08/24/20 12:00 100/52 L 08/24/20 11:00 91/50 L 110/56 L 108/57 L 100/52 L 08/24/20 07:50 114/58 L 101/58 L BP Pulse Ox 08/24/20 16:10 100 08/24/20 12:00 100 08/24/20 11:00 08/24/20 07:50 113/56 L 100 Weight Weight 141 lb 8 oz I&O: 08/23/20 08/24/20 08/25/20 06:59 06:59 06:59 Intake Total 400 Output Total 750 850 Balance -350 -850 Result Diagrams: 08/24/20 04:18 08/24/20 04:18 Hospitalist ROS - Medication Medications: Active Medications Generic Name Dose Route Start Last Admin Trade Name Freq PRN Reason Stop Dose Admin Acetaminophen 650 mg 08/23/20 18:00 08/23/20 22:25 Acetaminophen 325 Mg Tab PO 650 mg Q4H PRN Administration Headache/Fever/Mild Pain (1-3) Aripiprazole 10 mg 08/24/20 09:00 08/24/20 09:59 Aripiprazole 10 Mg Tab PO 10 mg DAILY THELMA Administration Prednisone 5 mg 08/24/20 09:00 08/24/20 09:59 Prednisone 5 Mg Tab PO 09/07/20 09:01 5 mg DAILY THELMA Administration Topiramate 100 mg 08/24/20 09:00 08/24/20 10:00 Topiramate 100 Mg Tab PO 100 mg BID THELMA Administration Venlafaxine HCl 75 mg 08/24/20 09:00 08/24/20 10:00 Venlafaxine Hcl Xr 75 Mg Cap PO 75 mg DAILY THELMA Administration - Exam General Appearance: NAD, awake alert Heart: RRR, no murmur, no gallops, no rubs, normal peripheral pulses Respiratory: CTAB, no wheezes, no rales, no ronchi, normal chest expansion, no tachypnea, normal percussion Gastrointestinal: soft, non-tender, non-distended, normal bowel sounds, no palpable masses, no hepatomegaly, no splenomegaly, no bruit Extremities: no cyanosis, no clubbing, no edema Skin: normal turgor Neurological - other findings: Low-frequency tremor most notable in the right foot and slight head tremor Musculoskeletal - other findings: Slightly increased tone. Mild cogwheel rig idity of the upper extremities Psychiatric: flat affect Psychiatric - other findings: Appears cognitively intact but delayed. Hosp A/P (1) Syncope Code(s): R55 - SYNCOPE AND COLLAPSE Status: Acute (2) Fecal retention Code(s): K59.00 - CONSTIPATION, UNSPECIFIED Status: Acute (3) Injury to nose Code(s): S09.92XA - UNSPECIFIED INJURY OF NOSE, INITIAL ENCOUNTER Status: Acute (4) Urine retention Code(s): R33.9 - RETENTION OF URINE, UNSPECIFIED Status: Acute (5) Asthma Code(s): J45.909 - UNSPECIFIED ASTHMA, UNCOMPLICATED Status: Chronic (6) Personal history of DVT (deep vein thrombosis) Code(s): Z86.718 - PERSONAL HISTORY OF OTHER VENOUS THROMBOSIS AND EMBOLISM Status: Chronic (7) Anxiety and depression Code(s): F41.9 - ANXIETY DISORDER, UNSPECIFIED; F32.9 - MAJOR DEPRESSIVE DIS ORDER, SINGLE EPISODE, UNSPECIFIED Status: Chronic - Plan Patient with syncope x 2 today, once at home and once with EMS. Sustained a facial/head injury while at home and has bruising/abrasion to nose, with evidence of epistaxis that has settled. CT head, cspine and facial bones are unremarkable for acute abnormalities. CT C/A/P done due to suprapubic discomfort and history of PE (no longer on anticoagulation) notable for distended bladder with mild right hydronephrosis. Patient endorses a month long history of urine retention with overflow incontinence. Also noted was moderate fecal retention. Admitted for the following: Syncope: Cardiac monitoring has revealed no significant arrhythmias. Troponins negative. Orthostatic BPs negative. Echo normal. Ruled out underlying UTI PT/OT consulted. Patient was able to ambulate with a slow aydee and a shuffling gait. Differential includes possible new onset Parkinson's disease with some autonomic dysfunction, urinary retention with micturition syncope, as of yet undiagnosed rhythm issue. This point appears to be more likely the former than the latter. Parkinson's: Patient is demonstrating multiple signs of Parkinson's disease. These include the tremor, shuffling gait, urinary retention, constipation, flat affect/stone face. She is cognitively intact but clearly delayed. She reports she has some occasionally loss of memory regarding specific events. We will consider initiating empiric therapy. Urine retention: Possibly secondary to fecal retention/constipation. Fragoso catheter was placed and drained the bladder effectively. Given her syncope Flomax was not initiated. Fragoso catheter will be removed to determine if the bladder can effectively empty on its own. Addressing the underlying constipation. Fecal retention/constipation: Aggressive bowel regimen. Head Injury/Facial injury: stable, tylenol PRN for pain Asthma: Resume inhalers. Anxiety/Depression: Resume home meds. Patient has a serious history of anxiety and depression including suicidal ideation. She was admitted to an inpatient psych facility in March 2019. Also concerning that some of her psych meds such as topiramate might be contributing to her syncope and falls. DVT Prophylaxis: Given her history of DVT will use Lovenox. Disposition: Patient currently lives at [facility]. She is in independent living. She has had several falls and may be developing Parkinson's disease. She does not appear to be safe to continue to live independently. She is amenable to moving to assisted living. She reports she does have a local daughter but the relationship is estranged. Discussed with case management. CODE STATUS FULL
[2020-08-24] MEDS ORDERED: Enoxaparin Sodium 40 MG/0.4 ML SYRINGE SC SCH (17:30)
[2020-08-24] MEDS ORDERED: Polyethylene Glycol 3350 17 GM Packet PO SCH (17:45)
--- NOTE | 2020-08-24 17:54 | ULT ---
Renal sonogram HISTORY: Hydronephrosis. COMPARISON: CT 08/23/2020. FINDINGS: The right kidney is 10.0 cm length. A 2.1 cm fluid structure centrally favored to represent the superior pole collecting system. No significant distention of the calyces. Urinary bladder has a normal appearance. Bilateral ureteral jets documented. Left kidney not well imaged. IMPRESSION : No hydronephrosis or other abnormalities of the right kidney evident.
[2020-08-24] MEDS: Senokot 8.6 MG TAB PO SCH (21:55)
[2020-08-24] MEDS: Mirtazapine 30 MG Soltab PO SCH (21:55)
[2020-08-25] MEDS: Acetaminophen 325 MG TAB PO PRN (00:40)
[2020-08-25] MEDS ORDERED: Clopidogrel Bisulfate 75 MG TAB ONE (09:16)
[2020-08-25] MEDS: Topiramate 100 MG TAB PO SCH ×2 (09:26→20:56)
[2020-08-25] MEDS: Venlafaxine HCl XR 75 MG CAP PO SCH (09:26)
[2020-08-25] MEDS: Aripiprazole 10 MG TAB PO SCH (09:26)
[2020-08-25] MEDS: predniSONE 5 MG TAB PO SCH (09:26)
[2020-08-25] MEDS: Sodium Chloride 0.9% 1,000 ML IV SCH ×3 (09:26→20:57)
[2020-08-25] MEDS: Enoxaparin Sodium 40 MG/0.4 ML SYRINGE SC SCH (09:26)
[2020-08-25] MEDS ORDERED: ALPRAZolam 0.25 MG TAB PO PRN (11:35)
[2020-08-25] MEDS ORDERED: Fleet Enema 133 ML BOT PR SCH (11:45)
--- NOTE | 2020-08-25 14:48 | PDOC.HOSPP ---
- Subjective Encounter Date: 08/25/20 Subjective: Patient believes she is slightly better. She has been able to void. She has not yet had a bowel movement. She does request medication for anxiety. She reports she was on clonazepam at home. She would like to have some of that again. - Objective Vital Signs & Weight: Vital Signs (12 hours) Temp Pulse Resp BP BP BP BP 08/25/20 11:28 97.1 F L 81 16 116/57 L 08/25/20 07:31 97.8 F 77 16 140/65 136/60 136/63 08/25/20 07:30 08/25/20 04:00 97.4 F L 64 16 112/56 L Pulse Ox 08/25/20 11:28 99 08/25/20 07:31 99 08/25/20 07:30 99 08/25/20 04:00 97 Weight Weight 141 lb 8 oz I&O: 08/24/20 08/25/20 08/26/20 06:59 06:59 06:59 Intake Total 400 450 Output Total 750 1250 Balance -350 -800 Result Diagrams: 08/24/20 04:18 08/24/20 04:18 Hospitalist ROS - Medication Medications: Active Medications Generic Name Dose Route Start Last Admin Trade Name Freq PRN Reason Stop Dose Admin Acetaminophen 650 mg 08/23/20 18:00 08/25/20 00:40 Acetaminophen 325 Mg Tab PO 650 mg Q4H PRN Administration Headache/Fever/Mild Pain (1-3) Aripiprazole 10 mg 08/24/20 09:00 08/25/20 09:26 Aripiprazole 10 Mg Tab PO 10 mg DAILY THELMA Administration Enoxaparin Sodium 40 mg 08/25/20 09:00 08/25/20 09:26 Enoxaparin Sodium 40 Mg/0.4 Ml Syringe SC 40 mg 0900 THELMA Administration Sodium Chloride 1,000 mls @ 100 mls/hr 08/25/20 08:15 08/25/20 09:26 Normal Saline 0.9% IV 1,000 mls .Q10H THELMA Administration Mirtazapine 30 mg 08/24/20 21:00 08/24/20 21:55 Mirtazapine 30 Mg Soltab PO 30 mg HS THELMA Administration Prednisone 5 mg 08/24/20 09:00 08/25/20 09:26 Prednisone 5 Mg Tab PO 09/07/20 09:01 5 mg DAILY THELMA Administration Senna 2 tab 08/24/20 21:00 08/24/20 21:55 Senokot 8.6 Mg Tab PO 2 tab HS THELMA Administration Topiramate 100 mg 08/24/20 09:00 08/25/20 09:26 Topiramate 100 Mg Tab PO 100 mg BID THELMA Administration Venlafaxine HCl 75 mg 08/24/20 09:00 08/25/20 09:26 Venlafaxine Hcl Xr 75 Mg Cap PO 75 mg DAILY THELMA Administration - Exam General Appearance: NAD, awake alert ENT - other findings: Small contusion across the upper bridge of the nose. Heart: RRR, no murmur, no gallops, no rubs, normal peripheral pulses Respiratory: CTAB, no wheezes, no rales, no ronchi, normal chest expansion, no tachypnea, normal percussion Gastrointestinal: soft, non-tender, non-distended, normal bowel sounds, no palpable masses, no hepatomegaly, no splenomegaly, no bruit Extremities: no cyanosis, no clubbing, no edema Skin: normal turgor, no lesions, no rashes Neurological: no focal deficits Neurological - other findings: Low-frequency tremor in the foot. Slightly faster in the head. Psychiatric: A&O x 3, flat affect Psychiatric - other findings: Cognitively intact but delayed in responses. Hosp A/P (1) Syncope Code(s): R55 - SYNCOPE AND COLLAPSE Status: Acute (2) Fecal retention Code(s): K59.00 - CONSTIPATION, UNSPECIFIED Status: Acute (3) Injury to nose Code(s): S09.92XA - UNSPECIFIED INJURY OF NOSE, INITIAL ENCOUNTER Status: Acute (4) Urine retention Code(s): R33.9 - RETENTION OF URINE, UNSPECIFIED Status: Acute (5) Asthma Code(s): J45.909 - UNSPECIFIED ASTHMA, UNCOMPLICATED Status: Chronic (6) Personal history of DVT (deep vein thrombosis) Code(s): Z86.718 - PERSONAL HISTORY OF OTHER VENOUS THROMBOSIS AND EMBOLISM Status: Chronic (7) Anxiety and depression Code(s): F41.9 - ANXIETY DISORDER, UNSPECIFIED; F32.9 - MAJOR DEPRESSIVE DISORDER, SINGLE EPISODE, UNSPECIFIED Status: Chronic (8) Parkinsons disease Code(s): G20 - PARKINSON'S DISEASE Status: Acute (9) Hydroureter on right Code(s): N13.4 - HYDROURETER Status: Acute - Plan Patient with syncope x 2 today, once at home and once with EMS. Sustained a facial/head injury while at home and has bruising/abrasion to nose, with evidence of epistaxis that has settled. CT head, cspine and facial bones are unremarkable for acute abnormalities. CT C/A/P done due to suprapubic discomfort and history of PE (no longer on anticoagulation) notable for distended bladder with mild right hydronephrosis. Patient endorses a month long history of urine retention with overflow incontinence. Also noted was moderate fecal retention. Admitted for the following: Syncope: Cardiac monitoring has revealed no significant arrhythmias. Troponins negative. Orthostatic BPs negative. Echo normal. Ruled out underlying UTI PT/OT consulted. Patient was able to ambulate with a slow aydee and a shuffling gait. Differential includes possible new onset Parkinson's disease with some autonomic dysfunction, urinary retention with micturition syncope, as of yet undiagnosed rhythm issue. This point appears to be more likely the former than the latter. Parkinson's: Patient is demonstrating multiple signs of Parkinson's disease. These include the tremor, shuffling gait, urinary retention, constipation, flat affect/stone face. She is cognitively intact but clearly delayed. She reports she has some occasionally loss of memory regarding specific events. I long discussion with the patient. She is willing to try empiric treatment with Sinemet. Initiated on 08/25/2020. Urine retention: Possibly secondary to fecal retention/constipation. Fragoso catheter was placed and drained the bladder effectively. Given her syncope Flomax was not initiated. Fragoso catheter was removed. She subsequently was found to have 500 cc of retained urine but then voided effectively. Follow-up ultrasound showed no evidence of hydronephrosis. Addressing the underlying constipation. [place] ureter on the right: Found on initial imaging. Contemporaneous with the urinary retention in the bladder. Follow-up ultrasound after Fragoso placed revealed no persistent hydro ureter. Fecal retention/constipation: Aggressive bowel regimen. No response with MiraLAX. Enema given 08/25/2020. Head Injury/Facial injury: stable, tylenol PRN for pain Asthma: Resume inhalers. Anxiety/Depression: Resume home meds. Patient has a serious history of anxiety and depression including suicidal ideation. She was admitted to an inpatient psych facility in March 2019. Also concerning that some of her psych meds such as topiramate might be con tributing to her syncope and falls. Patient requested clonazepam. Preferred something shorter acting therefore prescribe Xanax. DVT Prophylaxis: Given her history of DVT will use Lovenox. Disposition: Patient currently lives at [facility]. She is in independent living. She has had several falls and may be developing Parkinson's disease. She does not appear to be safe to continue to live independently. She is amenable to moving to assisted living. She reports she does have a local daughter but the relationship is estranged. Discussed with case management. CODE STATUS FULL
[2020-08-25] MEDS: Carbidopa/Levodopa 25-100 mg Tablet PO SCH ×2 (14:49→20:56)
[2020-08-25] MEDS: Senokot 8.6 MG TAB PO SCH (20:56)
[2020-08-25] MEDS: Mirtazapine 30 MG Soltab PO SCH (20:56)
[2020-08-26] MEDS: Sodium Chloride 0.9% 1,000 ML IV SCH (06:20)
[2020-08-26] MEDS: Enoxaparin Sodium 40 MG/0.4 ML SYRINGE SC SCH (09:27)
[2020-08-26] MEDS: Carbidopa/Levodopa 25-100 mg Tablet PO SCH ×3 (09:28→20:35)
[2020-08-26] MEDS: Topiramate 100 MG TAB PO SCH ×2 (09:28→20:35)
[2020-08-26] MEDS: Aripiprazole 10 MG TAB PO SCH (09:28)
[2020-08-26] MEDS: Venlafaxine HCl XR 75 MG CAP PO SCH (09:28)
[2020-08-26] MEDS: predniSONE 5 MG TAB PO SCH (09:28)
--- NOTE | 2020-08-26 14:40 | PDOC.HOSPP ---
- Subjective Encounter Date: 08/26/20 Subjective: Patient did have a bowel movement. She had actually quite a lot of stool produced. She says she was shocked by how much she was retaining. She is not sure the Sinemet has been helpful but says that 2 other nurses have come in and told her that she has clear improvement in their opinion. She also reports that she feels like she is much more anxious today. - Objective Vital Signs & Weight: Vital Signs (12 hours) Temp Pulse Resp BP Pulse Ox 08/26/20 12:20 98 F 86 16 136/65 98 08/26/20 07:39 99 08/26/20 07:02 98.2 F 65 18 134/62 99 08/26/20 04:00 98.2 F 62 18 127/58 L 97 Weight Weight 143 lb 3 oz I&O: 08/25/20 08/26/20 08/27/20 06:59 06:59 06:59 Intake Total 450 1440 Output Total 1250 1800 Balance -800 -360 Result Diagrams: 08/24/20 04:18 08/24/20 04:18 Hospitalist ROS - Medication Medications: Active Medications Generic Name Dose Route Start Last Admin Trade Name Freq PRN Reason Stop Dose Admin Acetaminophen 650 mg 08/23/20 18:00 08/25/20 00:40 Acetaminophen 325 Mg Tab PO 650 mg Q4H PRN Administration Headache/Fever/Mild Pain (1-3) Aripiprazole 10 mg 08/24/20 09:00 08/26/20 09:28 Aripiprazole 10 Mg Tab PO 10 mg DAILY THELMA Administration Carbidopa/Levodopa 1 tab 08/25/20 15:00 08/26/20 09:28 Carbidopa/Levodopa 25-100 Mg Tablet PO 1 tab TID THELMA Administration Enoxaparin Sodium 40 mg 08/25/20 09:00 08/26/20 09:27 Enoxaparin Sodium 40 Mg/0.4 Ml Syringe SC 40 mg 0900 THELMA Administration Sodium Chloride 1,000 mls @ 100 mls/hr 08/25/20 08:15 08/26/20 06:20 Normal Saline 0.9% IV 1,000 mls .Q10H THELMA Administration Mirtazapine 30 mg 08/24/20 21:00 08/25/20 20:56 Mirtazapine 30 Mg Soltab PO 30 mg HS THELMA Administration Prednisone 5 mg 08/24/20 09:00 08/26/20 09:28 Prednisone 5 Mg Tab PO 09/07/20 09:01 5 mg DAILY THELMA Administration Senna 2 tab 08/24/20 21:00 08/25/20 20:56 Senokot 8.6 Mg Tab PO 2 tab HS THELMA Administration Topiramate 100 mg 08/24/20 09:00 08/26/20 09:28 Topiramate 100 Mg Tab PO 100 mg BID THELMA Administration Venlafaxine HCl 75 mg 08/24/20 09:00 08/26/20 09:28 Venlafaxine Hcl Xr 75 Mg Cap PO 75 mg DAILY THELMA Administration - Exam General Appearance: NAD, awake alert ENT - other findings: Abrasion across the bridge of the nose. Heart: RRR, no murmur, no gallops, no rubs, normal peripheral pulses Respiratory: CTAB, no wheezes, no rales, no ronchi, normal chest expansion, no tachypnea, normal percussion Gastrointestinal: soft, non-tender, non-distended, normal bowel sounds, no palpable masses, no hepatomegaly, no splenomegaly Extremities: no cyanosis, no clubbing, no edema Skin: normal turgor Neurological: cranial nerve grossly intact, normal sensation to touch Musculoskeletal: normal tone, normal strength, no muscle wasting Psychiatric: normal affect, normal behavior, A&O x 3 Hosp A/P (1) Syncope Code(s): R55 - SYNCOPE AND COLLAPSE Status: Acute (2) Fecal retention Code(s): K59.00 - CONSTIPATION, UNSPECIFIED Status: Acute (3) Injury to nose Code(s): S09.92XA - UNSPECIFIED INJURY OF NOSE, INITIAL ENCOUNTER Status: Acute (4) Urine retention Code(s): R33.9 - RETENTION OF URINE, UNSPECIFIED Status: Acute (5) Asthma Code(s): J45.909 - UNSPECIFIED ASTHMA, UNCOMPLICATED Status: Chronic (6) Personal history of DVT (deep vein thrombosis) Code(s): Z86.718 - PERSONAL HISTORY OF OTHER VENOUS THROMBOSIS AND EMBOLISM Status: Chronic (7) Anxiety and depression Code(s): F41.9 - ANXIETY DISORDER, UNSPECIFIED; F32.9 - MAJOR DEPRESSIVE DIS ORDER, SINGLE EPISODE, UNSPECIFIED Status: Chronic (8) Parkinsons disease Code(s): G20 - PARKINSON'S DISEASE Status: Acute (9) Hydroureter on right Code(s): N13.4 - HYDROURETER Status: Acute - Plan Patient with syncope x 2 today, once at home and once with EMS. Sustained a facial/head injury while at home and has bruising/abrasion to nose, with evidence of epistaxis that has settled. CT head, cspine and facial bones are unremarkable for acute abnormalities. CT C/A/P done due to suprapubic discomfo rt and history of PE (no longer on anticoagulation) notable for distended bladder with mild right hydronephrosis. Patient endorses a month long history of urine retention with overflow incontinence. Also noted was moderate fecal retention. Admitted for the following: Syncope: Cardiac monitoring has revealed no significant arrhythmias. Troponins negative. Orthostatic BPs negative. Echo normal. Ruled out underlying UTI PT/OT consulted. Patient was able to ambulate with a slow aydee and a shuffling gait. Differential includes possible new onset Parkinson's disease with some autonomic dysfunction, urinary retention with micturition syncope, as of yet undiagnosed rhythm issue. This point appears to be more likely the former than the latter. Parkinson's: Patient is demonstrating multiple signs of Parkinson's disease. These include the tremor, shuffling gait, urinary retention, constipation, flat affect/stone face. She is cognitively intact but clearly delayed. She reports she has some occasionally loss of memory regarding specific events. She was willing to try empiric treatment with Sinemet. Initiated on 08/25/2020. Appears to have improvements with generalized animation, facial expression and speech. Urine retention: Possibly secondary to fecal retention/constipation. Fragoso catheter was placed and drained the bladder effectively. Given her syncope Flomax was not initiated. Fragoso catheter was removed. She subsequently was found to have 500 cc of retained urine but then voided effectively. Follow-up ultrasound showed no evidence of hydronephrosis. Addressed the underlying constipation. [place] ureter on the right: Found on initial imaging. Contemporaneous with the urinary retention in the bladder. Follow-up ultrasound after Fragoso placed revealed no persistent hydro ureter. Fecal retention/constipation: Aggressive bowel regimen. No response with MiraLAX. Enema given 08/25/2020. Head Injury/Facial injury: stable, tylenol PRN for pain Asthma: Resume inhalers. Anxiety/Depression: Resume home meds. Patient has a serious history of anxiety and depression including suicidal ideation. She was admitted to an inpatient psych facility in March 2019. Also concerning that some of her psych meds such as topiramate might be contributing to her syncope and falls. Patient requested clonazepam. Initially went with shorter acting Xanax to be able to fully assess the effects of the Sinemet. Once it appeared as though it was working were able to transition her back to the clonazepam. DVT Prophylaxis: Given her history of DVT will use Lovenox. Disposition: Patient currently lives at [facility]. She is in independent living. She has had several falls and may be developing Parkinson's disease. She does not appear to be safe to continue to live independently. She is amenable to moving to assisted living. She reports she does have a local daughter but the relationship is estranged. Discussed with case management. CODE STATUS FULL
[2020-08-26] MEDS ORDERED: clonazePAM 0.5 MG TAB PO SCH (14:45)
[2020-08-26] MEDS: Mirtazapine 30 MG Soltab PO SCH (20:35)
[2020-08-26] MEDS: clonazePAM 1 MG TAB PO SCH (20:35)
[2020-08-26] MEDS: Senokot 8.6 MG TAB PO SCH (20:35)
[2020-08-26] MEDS: Acetaminophen 325 MG TAB PO PRN (23:28)
[2020-08-27] MEDS: Sodium Chloride 0.9% 1,000 ML IV SCH ×3 (02:58→22:45)
[2020-08-27] MEDS: Aripiprazole 10 MG TAB PO SCH (08:33)
[2020-08-27] MEDS: Venlafaxine HCl XR 75 MG CAP PO SCH (08:34)
[2020-08-27] MEDS: Enoxaparin Sodium 40 MG/0.4 ML SYRINGE SC SCH (08:34)
[2020-08-27] MEDS: Topiramate 100 MG TAB PO SCH ×2 (08:34→22:42)
[2020-08-27] MEDS: Carbidopa/Levodopa 25-100 mg Tablet PO SCH ×3 (08:34→20:48)
[2020-08-27] MEDS: clonazePAM 1 MG TAB PO SCH ×2 (08:34→20:47)
[2020-08-27] MEDS: predniSONE 5 MG TAB PO SCH (08:34)
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
[2020-08-27] MEDS ORDERED: Ondansetron PF 4 MG/2 ML Vial IVP PRN (18:55)
[2020-08-27] MEDS: Senokot 8.6 MG TAB PO SCH (20:48)
[2020-08-27] MEDS: Mirtazapine 30 MG Soltab PO SCH (22:42)
[2020-08-28 07:43] VITALS: BP 124/70; TEMP 97.6
[2020-08-28] MEDS: Aripiprazole 10 MG TAB PO SCH (08:30)
[2020-08-28] MEDS: clonazePAM 1 MG TAB PO SCH (08:31)
[2020-08-28] MEDS: predniSONE 5 MG TAB PO SCH (08:31)
[2020-08-28] MEDS: Topiramate 100 MG TAB PO SCH (08:31)
[2020-08-28] MEDS: Venlafaxine HCl XR 75 MG CAP PO SCH (08:31)
[2020-08-28] MEDS: Carbidopa/Levodopa 25-100 mg Tablet PO SCH (08:31)
[2020-08-28] MEDS: Enoxaparin Sodium 40 MG/0.4 ML SYRINGE SC SCH (08:32)
[2020-08-28] MEDS: Sodium Chloride 0.9% 1,000 ML IV SCH (10:31)
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
== END 2020-08-28 14:29 | disposition home or self-care (01) | DRG 57 ==
LOC: ERS 13:59 → 2NO 17:28 → OBSVTOIN 08-24 16:29 → T4-B 08-27 22:21
PROVIDERS: ADMIT Internal Medicine; ATTEND Internal Medicine
PROC: 0T2BX0Z Change Drainage Device in Bladder, External Approach (ICD-10-PCS; principal; 2020-08-23)
DX: G20 Parkinson's disease (principal); N13.30 Unspecified hydronephrosis; Z20.828 Contact with and (suspected) exposure to other viral communicable diseases; Z23 Encounter for immunization; F41.9 Anxiety disorder, unspecified; F32.9 Major depressive disorder, single episode, unspecified; R33.9 Retention of urine, unspecified; K59.00 Constipation, unspecified; S00.31XA Abrasion of nose, initial encounter; R04.0 Epistaxis; W18.30XA Fall on same level, unspecified, initial encounter; F43.10 Post-traumatic stress disorder, unspecified; R29.6 Repeated falls; Z91.81 History of falling; Z90.710 Acquired absence of both cervix and uterus; Z86.718 Personal history of other venous thrombosis and embolism; Z86.711 Personal history of pulmonary embolism; Z88.8 Allergy status to other drugs, medicaments and biological substances; Z91.041 Radiographic dye allergy status; Z79.899 Other long term (current) drug therapy; Z79.51 Long term (current) use of inhaled steroids
CPT/HCPCS: 36415; 70450; 70486; 71260; 72125; 74177; 76770; 80048; 80053; 81001; 82550; 82553; 83735; 84443; 84484; 85025; 87635; 90471; 90715; 93005; 93306; 96374; 96375; J1200; J1650; J2405; J2920; J7512; Q9967; S0028; U0003

== ENCOUNTER 2020-11-25 12:48 | Observation (INO) | payer MEDICARE ==
[2020-11-25] MEDS ORDERED: Morphine 4 MG/ML VIAL ONE (13:38)
[2020-11-25] MEDS ORDERED: Ondansetron PF 4 MG/2 ML Vial ONE (13:38)
[2020-11-25] MEDS ORDERED: Acetaminophen 325 MG TAB ONE (13:39)
[2020-11-25 14:05] LABS: #Eosinphils 0.1 thou/uL (0.0-0.7); #Lymphocytes 1.2 thou/uL (1.20-3.40); #Monocytes 0.2 thou/uL (0.11-0.59); #Neutrophils 1.9 thou/uL (1.40-6.50); %Basophils 1.3 % (0.0-1.0); %Eosinophils 2.1 % (0.0-10.0); %Lymphocytes 33.4 % (21.0-51.0); %Monocytes 6.9 % (0.0-10.0); %Neutrophils 56.3 % (42.0-75.0); Hemoglobin 12.1 g/dL (12.0-16.0); Mean Corpuscular HGB CONC 33.2 g/dL (32.0-36.0); Mean Corpuscular Hemoglobin 31.7 pg (27.0-31.0); Mean Corpuscular Volume 95.6 fL (78.0-98.0); Mean Platelet Volume 8.6 fL (7.4-10.4); Platelet Count 230 thou/uL (130-400); RBC Distribution Width 13.1 % (11.5-14.5); Red Blood Cell (RBC) Count 3.83 mill/uL (4.20-5.40); White Blood Cell (WBC) Count 3.4 thou/uL (4.8-10.8)
[2020-11-25 14:26] LABS: ALT (SGPT) Less than 7 U/L (8-55); AST (SGOT) 11 U/L (5-34); Alkaline Phosphatase 102 U/L (40-110); Anion Gap 15 mmol/L (10-20); BUN (Urea Nitrogen) 9 mg/dL (9.8-20.1); Bilirubin, Total 0.3 mg/dL (0.2-1.2); Calc. Creatinine Clearance 0 mL/min (70-130); Carbon Dioxide 22 mmol/L (23-31); Chloride 109 mmol/L (98-107); Globulin 2.1 g/dL (2.4-3.5); Glucose 93 mg/dL (83-110); Potassium 4.2 mmol/L (3.5-5.1); Protein, Total 6.1 g/dL (5.8-8.1); Sodium 142 mmol/L (136-145)
[2020-11-25 15:47] LABS: Bacteria/HPF 1+ HPF (None Seen); Bilirubin Negative (Negative); Blood, Urine Negative (Negative); Clarity Clear (Clear); Glucose, Urine (Dipstick) Normal (Negative); Ketone, Urine 20 mg/dL (Negative); Leukocyte 25 Leu/uL (Negative); Nitrite Negative (Negative); Protein, Urine (Dipstick) Negative (Neg-Trace); RBC/HPF 0-3 HPF (0-3); Specific Gravity, Urine 1.016 (1.002-1.036); Squamous Epithelial 0-3 HPF (0-3)
[2020-11-25] MEDS ORDERED: cefTRIAXone\\ROCEPHIN 1 GM VIAL ONE (16:53)
[2020-11-25] MEDS ORDERED: Acetaminophen 325 MG TAB PO PRN (18:30)
[2020-11-25] MEDS ORDERED: Senokot S 8.6-50 MG TAB PO PRN (18:30)
[2020-11-25] MEDS ORDERED: Ondansetron PF 4 MG/2 ML Vial IVP PRN (18:30)
[2020-11-25] MEDS ORDERED: HYDROcodone/Acetaminophen 5/325 mg Tablet PO PRN (18:30)
[2020-11-25 22:27] VITALS: BMI 21.0
[2020-11-25] MEDS: Sodium Chloride 0.9% 1,000 ML IV SCH (23:10)
[2020-11-25] MEDS: Famotidine 20 MG TAB PO SCH (23:39)
[2020-11-26 04:16] LABS: SARS-CoV-2 PCR by NAA Not Detected (NotDetected)
[2020-11-26 05:02] LABS: #Eosinphils 0.1 thou/uL (0.0-0.7); #Lymphocytes 1.6 thou/uL (1.20-3.40); #Monocytes 0.2 thou/uL (0.11-0.59); #Neutrophils 1.5 thou/uL (1.40-6.50); %Basophils 1.1 % (0.0-1.0); %Eosinophils 2.3 % (0.0-10.0); %Lymphocytes 45.7 % (21.0-51.0); %Monocytes 6.7 % (0.0-10.0); %Neutrophils 44.2 % (42.0-75.0); Mean Corpuscular Hemoglobin 31.9 pg (27.0-31.0); Mean Corpuscular Volume 96.4 fL (78.0-98.0); Platelet Count 183 thou/uL (130-400); RBC Distribution Width 12.9 % (11.5-14.5); Red Blood Cell (RBC) Count 3.44 mill/uL (4.20-5.40); White Blood Cell (WBC) Count 3.4 thou/uL (4.8-10.8)
[2020-11-26 05:27] LABS: Anion Gap 12 mmol/L (10-20); BUN (Urea Nitrogen) 7 mg/dL (9.8-20.1); Calc. Creatinine Clearance 64 mL/min (70-130); Calcium 8.3 mg/dL (7.8-10.44); Carbon Dioxide 21 mmol/L (23-31); Chloride 112 mmol/L (98-107); Glucose 89 mg/dL (83-110); Potassium 3.7 mmol/L (3.5-5.1); Sodium 141 mmol/L (136-145)
[2020-11-26] MEDS ORDERED: Ondansetron ODT 4 MG TAB PO PRN (09:03)
[2020-11-26] MEDS ORDERED: Loperamide HCl 2 MG CAP PO PRN (09:03)
[2020-11-26] MEDS ORDERED: Acetaminophen 500 MG TAB PO PRN (09:03)
[2020-11-26] MEDS: Famotidine 20 MG TAB PO SCH (09:27)
[2020-11-26] MEDS: Carbidopa/Levodopa 25-100 mg Tablet PO SCH ×2 (09:28→16:08)
[2020-11-26] MEDS: Sodium Chloride 0.9% 1,000 ML IV SCH (09:28)
[2020-11-26 10:53] VITALS: TEMP 97.7
[2020-11-26] MEDS ORDERED: cefTRIAXone\\ROCEPHIN 1 GM in Sodium Chloride 0.9% 100 ML IVPB SCH (17:00)
[2020-11-26 17:01] VITALS: BP 109/51
[2020-11-26] MEDS ORDERED: Senokot 8.6 MG TAB PO SCH (21:00)
[2020-11-26] MEDS ORDERED: Topiramate 100 MG TAB PO SCH (21:00)
[2020-11-26] MEDS ORDERED: clonazePAM 1 MG TAB PO SCH (21:00)
[2020-11-26] MEDS ORDERED: Mirtazapine 30 MG Soltab PO SCH (21:00)
[2020-11-27] MEDS ORDERED: Venlafaxine HCl XR 75 MG CAP PO SCH (09:00)
[2020-11-27] MEDS ORDERED: Aripiprazole 10 MG TAB PO SCH (09:00)
[2020-11-27] MEDS ORDERED: Polyethylene Glycol 3350 17 GM Packet PO SCH (09:00)
== END 2020-11-26 16:40 | disposition home or self-care (01) ==
LOC: ERS 12:48 → 2NO 18:30
PROVIDERS: ADMIT Family Medicine; ATTEND Family Medicine
DX: I95.1 Orthostatic hypotension (principal); E86.9 Volume depletion, unspecified; G25.0 Essential tremor; G20 Parkinson's disease; J45.909 Unspecified asthma, uncomplicated; D72.819 Decreased white blood cell count, unspecified; Z66 Do not resuscitate; Z79.899 Other long term (current) drug therapy; Z88.5 Allergy status to narcotic agent; Z88.8 Allergy status to other drugs, medicaments and biological substances; Z91.048 Other nonmedicinal substance allergy status; Z20.822 Contact with and (suspected) exposure to COVID-19; W19.XXXA Unspecified fall, initial encounter
CPT/HCPCS: 51701; 70450; 71045; 72125; 80048; 80053; 83605; 84484; 85025 ×2; 87040; 87077; 87086; 93005; 94760; 96365; 96375; 97139; 99285; G0378 ×3; U0003; U0005; 36415; 81003; 81015; 87635; J0696; J2270; J2405

== ENCOUNTER 2021-03-04 18:02 | Inpatient (IN) | payer MEDICARE ==
[2021-03-04 19:33] LABS: #Eosinphils 0.3 thou/uL (0.0-0.7); #Lymphocytes 0.6 thou/uL (1.20-3.40); #Monocytes 0.3 thou/uL (0.11-0.59); #Neutrophils 3.3 thou/uL (1.40-6.50); %Basophils 0.8 % (0.0-1.0); %Eosinophils 6.2 % (0.0-10.0); %Lymphocytes 13.6 % (21.0-51.0); %Monocytes 6.6 % (0.0-10.0); %Neutrophils 72.7 % (42.0-75.0); Hemoglobin 11.5 g/dL (12.0-16.0); Mean Corpuscular HGB CONC 34.4 g/dL (32.0-36.0); Mean Corpuscular Hemoglobin 33.7 pg (27.0-31.0); Mean Corpuscular Volume 97.9 fL (78.0-98.0); Mean Platelet Volume 9.2 fL (7.4-10.4); Platelet Count 120 thou/uL (130-400); RBC Distribution Width 13.1 % (11.5-14.5); Red Blood Cell (RBC) Count 3.43 mill/uL (4.20-5.40); White Blood Cell (WBC) Count 4.5 thou/uL (4.8-10.8)
[2021-03-04 19:50] LABS: ALT (SGPT) 8 U/L (8-55); AST (SGOT) 41 U/L (5-34); Albumin 4.2 g/dL (3.4-4.8); Alkaline Phosphatase 118 U/L (40-110); Anion Gap 11 mmol/L (10-20); BUN (Urea Nitrogen) 16 mg/dL (9.8-20.1); Bilirubin, Total 0.4 mg/dL (0.2-1.2); Calc. Creatinine Clearance 0 mL/min (70-130); Calcium 8.9 mg/dL (7.8-10.44); Carbon Dioxide 20 mmol/L (23-31); Chloride 109 mmol/L (98-107); Globulin 2.2 g/dL (2.4-3.5); Glucose 95 mg/dL (83-110); Potassium 4.2 mmol/L (3.5-5.1); Protein, Total 6.4 g/dL (5.8-8.1); Sodium 136 mmol/L (136-145)
[2021-03-04] MEDS ORDERED: hydrALAZINE 20 MG/ML VIAL SLOW IVP PRN (20:51)
[2021-03-04] MEDS ORDERED: Ondansetron PF 4 MG/2 ML Vial IVP PRN (20:51)
[2021-03-04] MEDS ORDERED: CARBIDOPA PO SCH (21:00)
[2021-03-04] MEDS ORDERED: [UNRECOGNIZED DRUG - OTHER] PO SCH (21:00)
[2021-03-04] MEDS ORDERED: LEVODOPA PO SCH (21:00)
[2021-03-04] MEDS ORDERED: Ibuprofen 200 MG TAB ONE (21:25)
[2021-03-04] MEDS ORDERED: Famotidine/PF 20 mg/2ml Vial ONE (21:25)
[2021-03-04] MEDS ORDERED: Acetaminophen 500 MG TAB ONE (21:25)
[2021-03-05] MEDS: Acetaminophen 325 MG TAB PO SCH ×5 (00:03→20:47)
[2021-03-05] MEDS: Sodium Chloride 0.9% 1,000 ML IV SCH (00:04)
[2021-03-05] MEDS: Famotidine/PF 20 mg/2ml Vial SLOW IVP SCH ×3 (00:04→20:48)
[2021-03-05] MEDS: Senokot 8.6 MG TAB PO SCH ×2 (00:04→20:48)
[2021-03-05] MEDS: Ibuprofen 600 MG TAB PO SCH ×4 (00:04→20:48)
[2021-03-05 04:39] LABS: #Eosinphils 0.3 thou/uL (0.0-0.7); #Lymphocytes 0.7 thou/uL (1.20-3.40); #Monocytes 0.2 thou/uL (0.11-0.59); #Neutrophils 1.7 thou/uL (1.40-6.50); %Basophils 1.4 % (0.0-1.0); %Eosinophils 11.3 % (0.0-10.0); %Lymphocytes 22.1 % (21.0-51.0); %Monocytes 6.9 % (0.0-10.0); %Neutrophils 58.3 % (42.0-75.0); Hemoglobin 11.4 g/dL (12.0-16.0); Mean Corpuscular HGB CONC 33.6 g/dL (32.0-36.0); Mean Corpuscular Hemoglobin 33.2 pg (27.0-31.0); Mean Platelet Volume 9.8 fL (7.4-10.4); Platelet Count 111 thou/uL (130-400); RBC Distribution Width 13.3 % (11.5-14.5); Red Blood Cell (RBC) Count 3.43 mill/uL (4.20-5.40)
[2021-03-05] MEDS ORDERED: Acetaminophen 500 MG TAB ONE ×2 (04:49→08:50)
[2021-03-05 04:52] LABS: Anion Gap 12 mmol/L (10-20); BUN (Urea Nitrogen) 15 mg/dL (9.8-20.1); Calc. Creatinine Clearance 0 mL/min (70-130); Calcium 9.1 mg/dL (7.8-10.44); Carbon Dioxide 19 mmol/L (23-31); Chloride 109 mmol/L (98-107); Glucose 85 mg/dL (83-110); Magnesium 2.1 mg/dL (1.6-2.6); Sodium 136 mmol/L (136-145)
[2021-03-05 04:56] LABS: INR-International Normal Ratio 1.1; Prothrombin Time 14.6 sec (12.0-14.7)
[2021-03-05 04:57] LABS: PTT 34.4 sec (22.9-36.1)
[2021-03-05] MEDS ORDERED: Ibuprofen 200 MG TAB ONE (05:47)
[2021-03-05] MEDS ORDERED: CEFAZOLIN 2 GM in Premix Bag 1 BAG IVPB SCH ×2 (07:30→12:00)
[2021-03-05 08:46] LABS: SARS-CoV-2 NAA Rapid Test Not Detected (NotDetected)
[2021-03-05] MEDS ORDERED: Famotidine/PF 20 mg/2ml Vial ONE ×2 (08:50→08:54)
[2021-03-05] MEDS: Aripiprazole 10 MG TAB PO SCH (10:01)
[2021-03-05] MEDS: Topiramate 100 MG TAB PO SCH ×2 (10:03→20:48)
[2021-03-05] MEDS: Venlafaxine HCl XR 75 MG CAP PO SCH (10:04)
[2021-03-05] MEDS: Polyethylene Glycol 3350 17 GM Packet PO SCH (12:01)
[2021-03-05] MEDS ORDERED: ePHEDrine Sulfate 50 MG/10 ML VIAL ONE (14:36)
[2021-03-05] MEDS ORDERED: Ondansetron PF 4 MG/2 ML Vial ONE (14:36)
[2021-03-05] MEDS ORDERED: Rocuronium Bromide 10 MG/ML (10ML VIAL) ONE (14:36)
[2021-03-05] MEDS ORDERED: Lidocaine 1% PF 5 ML VIAL ONE (14:36)
[2021-03-05] MEDS ORDERED: PHENYLEPHRINE-NS 100 MCG/ML 10 ML SYRINGE ONE (14:36)
[2021-03-05] MEDS ORDERED: Dexamethasone 20 MG/5 ML VIAL ONE (14:36)
[2021-03-05] MEDS ORDERED: PROPOFOL 200 MG/20 ML VIAL ONE (14:36)
[2021-03-05] MEDS ORDERED: Fentanyl 100 MCG/2 ML VIAL ONE (14:39)
[2021-03-05] MEDS ORDERED: Promethazine HCl 25 MG/ML VIAL IVPB PRN (15:16)
[2021-03-05] MEDS ORDERED: Ondansetron HCl/PF 4 MG/2 ML Vial IVP PRN (15:16)
[2021-03-05] MEDS ORDERED: PACU-Morphine 4MG/ML VIAL SLOW IVP PRN (15:16)
[2021-03-05] MEDS ORDERED: Promethazine HCl 25 MG/ML VIAL IM PRN (15:16)
[2021-03-05 17:49] VITALS: BMI 21.8
[2021-03-05] MEDS: Mirtazapine 30 MG Soltab PO SCH (20:48)
[2021-03-05] MEDS: clonazePAM 1 MG TAB PO SCH (20:48)
[2021-03-06] MEDS: Sodium Chloride 0.9% 1,000 ML IV SCH ×2 (00:10→23:12)
[2021-03-06] MEDS: CEFAZOLIN 2 GM in Premix Bag 1 BAG IVPB SCH ×2 (00:10→06:10)
[2021-03-06] MEDS: Acetaminophen 325 MG TAB PO SCH ×4 (03:00→20:47)
[2021-03-06] MEDS: Ibuprofen 600 MG TAB PO SCH ×3 (05:33→23:11)
[2021-03-06 05:56] LABS: #Lymphocytes 0.7 thou/uL (1.20-3.40); #Monocytes 0.4 thou/uL (0.11-0.59); #Neutrophils 3.4 thou/uL (1.40-6.50); %Basophils 0.5 % (0.0-1.0); %Eosinophils 0.6 % (0.0-10.0); %Lymphocytes 14.4 % (21.0-51.0); %Monocytes 9.3 % (0.0-10.0); %Neutrophils 75.2 % (42.0-75.0); Hemoglobin 11.3 g/dL (12.0-16.0); Mean Corpuscular HGB CONC 33.1 g/dL (32.0-36.0); Mean Corpuscular Hemoglobin 32.7 pg (27.0-31.0); Mean Corpuscular Volume 98.8 fL (78.0-98.0); Mean Platelet Volume 9.4 fL (7.4-10.4); Platelet Count 120 thou/uL (130-400); RBC Distribution Width 13.2 % (11.5-14.5); Red Blood Cell (RBC) Count 3.46 mill/uL (4.20-5.40); White Blood Cell (WBC) Count 4.5 thou/uL (4.8-10.8)
[2021-03-06 06:10] LABS: Anion Gap 12 mmol/L (10-20); BUN (Urea Nitrogen) 13 mg/dL (9.8-20.1); Calc. Creatinine Clearance 58 mL/min (70-130); Carbon Dioxide 20 mmol/L (23-31); Chloride 108 mmol/L (98-107); Glucose 106 mg/dL (83-110); Phosphorus 4.4 mg/dL (2.3-4.7); Potassium 4.6 mmol/L (3.5-5.1); Sodium 135 mmol/L (136-145)
[2021-03-06] MEDS: Aripiprazole 10 MG TAB PO SCH (08:44)
[2021-03-06] MEDS: Famotidine/PF 20 mg/2ml Vial SLOW IVP SCH (08:44)
[2021-03-06] MEDS: Topiramate 100 MG TAB PO SCH ×2 (08:55→20:47)
[2021-03-06] MEDS: Venlafaxine HCl XR 75 MG CAP PO SCH (08:55)
[2021-03-06] MEDS: Polyethylene Glycol 3350 17 GM Packet PO SCH (10:16)
[2021-03-06] MEDS: Enoxaparin Sodium 40 MG/0.4 ML SYRINGE SC SCH (10:16)
[2021-03-06] MEDS ORDERED: traMADol HCl 50 MG TAB PO PRN ×2 (11:28)
[2021-03-06] MEDS: clonazePAM 1 MG TAB PO SCH (20:46)
[2021-03-06] MEDS: Melatonin 3 MG TAB PO SCH (20:47)
[2021-03-06] MEDS: Famotidine 20 MG TAB PO SCH (20:47)
[2021-03-06] MEDS: Mirtazapine 30 MG Soltab PO SCH (20:47)
[2021-03-06] MEDS: Senokot 8.6 MG TAB PO SCH (20:47)
[2021-03-07] MEDS: Acetaminophen 325 MG TAB PO SCH ×4 (04:56→20:14)
[2021-03-07] MEDS: Ibuprofen 600 MG TAB PO SCH ×3 (05:48→20:16)
[2021-03-07] MEDS: Polyethylene Glycol 3350 17 GM Packet PO SCH (08:35)
[2021-03-07] MEDS: Famotidine 20 MG TAB PO SCH ×2 (08:36→20:14)
[2021-03-07] MEDS: Enoxaparin Sodium 40 MG/0.4 ML SYRINGE SC SCH (08:36)
[2021-03-07] MEDS: Aripiprazole 10 MG TAB PO SCH (08:36)
[2021-03-07] MEDS: Venlafaxine HCl XR 75 MG CAP PO SCH (08:36)
[2021-03-07] MEDS: Topiramate 100 MG TAB PO SCH ×2 (08:36→20:16)
[2021-03-07] MEDS: Senokot 8.6 MG TAB PO SCH (20:15)
[2021-03-07] MEDS: Mirtazapine 30 MG Soltab PO SCH (20:15)
[2021-03-07] MEDS: Melatonin 3 MG TAB PO SCH (20:15)
[2021-03-07] MEDS: clonazePAM 1 MG TAB PO SCH (20:15)
[2021-03-07] MEDS: Sodium Chloride 0.9% 1,000 ML IV SCH (23:55)
[2021-03-08] MEDS: Acetaminophen 325 MG TAB PO SCH ×4 (02:10→20:07)
[2021-03-08] MEDS: Ibuprofen 600 MG TAB PO SCH ×3 (06:04→19:57)
[2021-03-08] MEDS: Polyethylene Glycol 3350 17 GM Packet PO SCH (08:23)
[2021-03-08] MEDS: Topiramate 100 MG TAB PO SCH ×2 (08:24→19:57)
[2021-03-08] MEDS: Venlafaxine HCl XR 75 MG CAP PO SCH (08:24)
[2021-03-08] MEDS: Enoxaparin Sodium 40 MG/0.4 ML SYRINGE SC SCH (08:24)
[2021-03-08] MEDS: Famotidine 20 MG TAB PO SCH ×2 (08:24→19:57)
[2021-03-08] MEDS: Aripiprazole 10 MG TAB PO SCH (08:29)
[2021-03-08] MEDS: clonazePAM 1 MG TAB PO SCH (19:56)
[2021-03-08] MEDS: Senokot 8.6 MG TAB PO SCH (19:57)
[2021-03-08] MEDS: Mirtazapine 30 MG Soltab PO SCH (19:57)
[2021-03-08] MEDS: Melatonin 3 MG TAB PO SCH (19:57)
[2021-03-09] MEDS: Sodium Chloride 0.9% 1,000 ML IV SCH ×2 (00:11→22:36)
[2021-03-09] MEDS: Acetaminophen 325 MG TAB PO SCH ×4 (03:46→21:02)
[2021-03-09] MEDS: Ibuprofen 600 MG TAB PO SCH ×3 (06:00→21:04)
[2021-03-09 06:02] LABS: Anion Gap 14 mmol/L (10-20); BUN (Urea Nitrogen) 11 mg/dL (9.8-20.1); Calc. Creatinine Clearance 61 mL/min (70-130); Carbon Dioxide 23 mmol/L (23-31); Chloride 106 mmol/L (98-107); Potassium 3.6 mmol/L (3.5-5.1); Sodium 139 mmol/L (136-145)
[2021-03-09 06:03] LABS: Calcium 9.2 mg/dL (7.8-10.44); Glucose 89 mg/dL (83-110)
[2021-03-09] MEDS: Topiramate 100 MG TAB PO SCH ×2 (08:44→21:03)
[2021-03-09] MEDS: Polyethylene Glycol 3350 17 GM Packet PO SCH (08:44)
[2021-03-09] MEDS: Venlafaxine HCl XR 75 MG CAP PO SCH (08:44)
[2021-03-09] MEDS: Enoxaparin Sodium 40 MG/0.4 ML SYRINGE SC SCH (08:44)
[2021-03-09] MEDS: Famotidine 20 MG TAB PO SCH ×2 (08:44→21:04)
[2021-03-09] MEDS: Aripiprazole 10 MG TAB PO SCH (08:49)
[2021-03-09] MEDS: Melatonin 3 MG TAB PO SCH (21:03)
[2021-03-09] MEDS: clonazePAM 1 MG TAB PO SCH (21:03)
[2021-03-09] MEDS: Senokot 8.6 MG TAB PO SCH (21:04)
[2021-03-09] MEDS: Senokot S 8.6-50 MG TAB PO SCH (21:04)
[2021-03-09] MEDS: Mirtazapine 30 MG Soltab PO SCH (21:04)
[2021-03-10] MEDS: Acetaminophen 325 MG TAB PO SCH ×4 (04:03→14:50)
[2021-03-10] MEDS: Ibuprofen 600 MG TAB PO SCH ×3 (05:36→22:08)
[2021-03-10] MEDS: Famotidine 20 MG TAB PO SCH ×2 (09:57→19:58)
[2021-03-10] MEDS: Venlafaxine HCl XR 75 MG CAP PO SCH (09:57)
[2021-03-10] MEDS: Enoxaparin Sodium 40 MG/0.4 ML SYRINGE SC SCH (09:57)
[2021-03-10] MEDS: Topiramate 100 MG TAB PO SCH ×2 (09:57→19:58)
[2021-03-10] MEDS: Polyethylene Glycol 3350 17 GM Packet PO SCH (10:00)
[2021-03-10] MEDS: Aripiprazole 10 MG TAB PO SCH (10:00)
[2021-03-10] MEDS: Senokot S 8.6-50 MG TAB PO SCH ×2 (10:00→19:57)
[2021-03-10] MEDS: Acetaminophen 500 MG TAB PO SCH ×2 (17:16→23:18)
[2021-03-10] MEDS: clonazePAM 1 MG TAB PO SCH (19:57)
[2021-03-10] MEDS: Senokot 8.6 MG TAB PO SCH (19:57)
[2021-03-10] MEDS: Mirtazapine 30 MG Soltab PO SCH (19:57)
[2021-03-10] MEDS: Melatonin 3 MG TAB PO SCH (19:58)
[2021-03-10] MEDS: Sodium Chloride 0.9% 1,000 ML IV SCH (23:18)
[2021-03-11] MEDS: Acetaminophen 500 MG TAB PO SCH ×4 (06:20→23:02)
[2021-03-11] MEDS: Ibuprofen 600 MG TAB PO SCH ×3 (06:20→20:56)
[2021-03-11] MEDS: Topiramate 100 MG TAB PO SCH ×2 (08:35→19:49)
[2021-03-11] MEDS: Venlafaxine HCl XR 75 MG CAP PO SCH (08:35)
[2021-03-11] MEDS: Aripiprazole 10 MG TAB PO SCH (08:35)
[2021-03-11] MEDS: Senokot S 8.6-50 MG TAB PO SCH ×2 (08:36→19:49)
[2021-03-11] MEDS: Enoxaparin Sodium 40 MG/0.4 ML SYRINGE SC SCH (08:36)
[2021-03-11] MEDS: Polyethylene Glycol 3350 17 GM Packet PO SCH (08:36)
[2021-03-11] MEDS: Famotidine 20 MG TAB PO SCH ×2 (08:36→19:49)
[2021-03-11] MEDS: clonazePAM 1 MG TAB PO SCH (19:49)
[2021-03-11] MEDS: Mirtazapine 30 MG Soltab PO SCH (19:49)
[2021-03-11] MEDS: Melatonin 3 MG TAB PO SCH (19:49)
[2021-03-11] MEDS: Senokot 8.6 MG TAB PO SCH (19:50)
[2021-03-11] MEDS: Sodium Chloride 0.9% 1,000 ML IV SCH (23:02)
[2021-03-12] MEDS: Acetaminophen 500 MG TAB PO SCH (04:46)
[2021-03-12] MEDS: Ibuprofen 600 MG TAB PO SCH (04:46)
[2021-03-12 07:41] VITALS: BP 112/66; TEMP 97.7
[2021-03-12] MEDS: Enoxaparin Sodium 40 MG/0.4 ML SYRINGE SC SCH (08:20)
[2021-03-12] MEDS: Senokot S 8.6-50 MG TAB PO SCH (08:20)
[2021-03-12] MEDS: Venlafaxine HCl XR 75 MG CAP PO SCH (08:20)
[2021-03-12] MEDS: Aripiprazole 10 MG TAB PO SCH (08:20)
[2021-03-12] MEDS: Famotidine 20 MG TAB PO SCH (08:21)
[2021-03-12] MEDS: Topiramate 100 MG TAB PO SCH (08:21)
[2021-03-12] MEDS: Polyethylene Glycol 3350 17 GM Packet PO SCH (08:21)
== END 2021-03-12 09:45 | DRG 482 ==
LOC: ERS 18:02 → ERHOLD 20:51 → SURG A 03-05 15:31
PROVIDERS: ADMIT Surgery; ATTEND Surgery
PROC: 0QS634Z Reposition Right Upper Femur with Internal Fixation Device, Percutaneous Approach (ICD-10-PCS; principal; 2021-03-05)
DX: S72.011A Unspecified intracapsular fracture of right femur, initial encounter for closed fracture (principal); F32.9 Major depressive disorder, single episode, unspecified; G20 Parkinson's disease; G25.0 Essential tremor; J45.909 Unspecified asthma, uncomplicated; F41.9 Anxiety disorder, unspecified; Z20.822 Contact with and (suspected) exposure to COVID-19; W06.XXXA Fall from bed, initial encounter; Z86.718 Personal history of other venous thrombosis and embolism; Z90.89 Acquired absence of other organs; Z86.711 Personal history of pulmonary embolism; Z98.890 Other specified postprocedural states; Z90.710 Acquired absence of both cervix and uterus; Z79.899 Other long term (current) drug therapy; Z88.5 Allergy status to narcotic agent; Z88.8 Allergy status to other drugs, medicaments and biological substances; Z91.041 Radiographic dye allergy status; Y93.89 Activity, other specified
CPT/HCPCS: 36415; 71045; 72170; 76000; 80048; 80053; 82533; 83735; 83880; 84100; 85025; 85610; 85730; 86850; 86900; 86901; 93005; C1713; C1769; G0390; J0690; J1100; J1650; J2405; J2704; J3010; S0028; U0002; U0003; U0005

== ENCOUNTER 2021-05-23 22:37 | Emergency (ER) | payer MEDICARE | END 2021-05-24 02:04 | disposition home or self-care (01) | LOC: ERS 22:37 | DX: S70.01XA Contusion of right hip, initial encounter (principal); S40.011A Contusion of right shoulder, initial encounter; J45.909 Unspecified asthma, uncomplicated; W06.XXXA Fall from bed, initial encounter | CPT/HCPCS: 70450; 72125; 72170 ==

== ENCOUNTER 2021-06-10 16:24 | Inpatient (IN) | payer MEDICARE ==
[2021-06-10] MEDS ORDERED: cefTRIAXone\\ROCEPHIN 1 GM VIAL ONE (16:53)
[2021-06-10 17:35] LABS: #Monocytes 0.3 thou/uL (0.11-0.59); #Neutrophils 3.2 thou/uL (1.40-6.50); %Basophils 0.3 % (0.0-1.0); %Eosinophils 0.5 % (0.0-10.0); %Lymphocytes 21.8 % (21.0-51.0); %Monocytes 6.2 % (0.0-10.0); %Neutrophils 71.2 % (42.0-75.0); Hemoglobin 12.8 g/dL (12.0-16.0); Mean Corpuscular HGB CONC 31.7 g/dL (32.0-36.0); Mean Corpuscular Hemoglobin 31.6 pg (27.0-31.0); Mean Corpuscular Volume 99.8 fL (78.0-98.0); Mean Platelet Volume 8.8 fL (7.4-10.4); Platelet Count 241 thou/uL (130-400); RBC Distribution Width 12.8 % (11.5-14.5); Red Blood Cell (RBC) Count 4.04 mill/uL (4.20-5.40); White Blood Cell (WBC) Count 4.5 thou/uL (4.8-10.8)
[2021-06-10 18:00] LABS: Bilirubin, Total 0.4 mg/dL (0.2-1.2); Calcium 9.4 mg/dL (7.8-10.44); Chloride 105 mmol/L (98-107); Potassium 5.6 mmol/L (3.5-5.1); Sodium 134 mmol/L (136-145)
[2021-06-10 18:17] LABS: Bacteria/HPF 3+ HPF (None Seen); Bilirubin Negative (Negative); Blood, Urine Negative (Negative); Clarity Turbid (Clear); Glucose, Urine (Dipstick) Normal (Negative); Ketone, Urine 20 mg/dL (Negative); Leukocyte Negative Leu/uL (Negative); Nitrite Negative (Negative); Protein, Urine (Dipstick) Negative (Neg-Trace); RBC/HPF 0-3 HPF (0-3); Specific Gravity, Urine 1.016 (1.002-1.036); Squamous Epithelial None Seen HPF (0-3); Urobilinogen Normal mg/dL (Less than 2); pH, Urine 6.5 (5.0-9.0)
[2021-06-10 18:32] LABS: ALT (SGPT) Less than 7 U/L (8-55); AST (SGOT) 14 U/L (5-34); Albumin 4.3 g/dL (3.4-4.8); Alkaline Phosphatase 112 U/L (40-110); BUN (Urea Nitrogen) 10 mg/dL (9.8-20.1); CK (CPK) 35 U/L (29-168); Calc. Creatinine Clearance 0 mL/min (70-130); Carbon Dioxide 22 mmol/L (23-31); Globulin 2.6 g/dL (2.4-3.5); Glucose 82 mg/dL (83-110); Magnesium 2.2 mg/dL (1.6-2.6); Protein, Total 6.9 g/dL (5.8-8.1)
[2021-06-10 18:36] LABS: Anion Gap 13 mmol/L (10-20)
[2021-06-10 20:29] LABS: Anion Gap 13 mmol/L (10-20); BUN (Urea Nitrogen) 9 mg/dL (9.8-20.1); Calc. Creatinine Clearance 0 mL/min (70-130); Calcium 8.7 mg/dL (7.8-10.44); Carbon Dioxide 23 mmol/L (23-31); Chloride 109 mmol/L (98-107); Glucose 79 mg/dL (83-110); Potassium 4.5 mmol/L (3.5-5.1); Sodium 140 mmol/L (136-145)
[2021-06-10] MEDS ORDERED: Acetaminophen 650 MG Suppository PR PRN (21:03)
[2021-06-10] MEDS ORDERED: Ondansetron ODT 4 MG TAB PO PRN (21:03)
[2021-06-10 21:05] LABS: Lactic Acid 0.6 mmol/L (0.5-2.2)
[2021-06-10 21:33] LABS: SARS-CoV-2 NAA Rapid Test Not Detected (NotDetected)
[2021-06-10 22:31] VITALS: BMI 17.3
[2021-06-11 07:16] LABS: #Lymphocytes 0.9 thou/uL (1.20-3.40); #Monocytes 0.4 thou/uL (0.11-0.59); #Neutrophils 5.3 thou/uL (1.40-6.50); %Basophils 0.7 % (0.0-1.0); %Eosinophils 0.3 % (0.0-10.0); %Lymphocytes 13.1 % (21.0-51.0); %Neutrophils 79.9 % (42.0-75.0); Hemoglobin 12.6 g/dL (12.0-16.0); Mean Corpuscular HGB CONC 31.8 g/dL (32.0-36.0); Mean Corpuscular Hemoglobin 31.5 pg (27.0-31.0); Mean Corpuscular Volume 98.9 fL (78.0-98.0); Mean Platelet Volume 8.6 fL (7.4-10.4); Platelet Count 213 thou/uL (130-400); RBC Distribution Width 12.9 % (11.5-14.5); Red Blood Cell (RBC) Count 4.01 mill/uL (4.20-5.40); White Blood Cell (WBC) Count 6.7 thou/uL (4.8-10.8)
[2021-06-11 07:43] LABS: Anion Gap 15 mmol/L (10-20); BUN (Urea Nitrogen) 11 mg/dL (9.8-20.1); Calc. Creatinine Clearance 49 mL/min (70-130); Calcium 9.4 mg/dL (7.8-10.44); Carbon Dioxide 22 mmol/L (23-31); Chloride 107 mmol/L (98-107); Glucose 88 mg/dL (83-110); Potassium 4.3 mmol/L (3.5-5.1); Sodium 140 mmol/L (136-145)
[2021-06-11] MEDS: Aripiprazole 10 MG TAB PO SCH (08:11)
[2021-06-11] MEDS: Venlafaxine HCl XR 75 MG CAP PO SCH (08:11)
[2021-06-11] MEDS: Enoxaparin Sodium 40 MG/0.4 ML SYRINGE SC SCH (08:11)
[2021-06-11] MEDS: Carbidopa/Levodopa CR 50-200 mg Tablet PO SCH ×3 (08:11→21:30)
[2021-06-11] MEDS: Topiramate 100 MG TAB PO SCH ×2 (08:11→21:25)
[2021-06-11] MEDS ORDERED: [UNRECOGNIZED DRUG - OTHER] PO SCH (09:00)
[2021-06-11] MEDS ORDERED: CARBIDOPA PO SCH (09:00)
[2021-06-11] MEDS ORDERED: LEVODOPA PO SCH (09:00)
[2021-06-11] MEDS: Acetaminophen 325 MG TAB PO PRN ×2 (11:56→21:31)
[2021-06-11] MEDS: Melatonin 3 MG TAB PO SCH (21:30)
[2021-06-11] MEDS: Mirtazapine 30 MG Soltab PO SCH (21:31)
[2021-06-12] MEDS ORDERED: Midazolam HCl 2 mg/2 ml Vial ONE (07:01)
[2021-06-12] MEDS ORDERED: Fentanyl 100 MCG/2 ML VIAL ONE (07:01)
[2021-06-12] MEDS: cefTRIAXone\\ROCEPHIN 1 GM in Sodium Chloride 0.9% 100 ML IVPB SCH (07:53)
[2021-06-12] MEDS: Enoxaparin Sodium 40 MG/0.4 ML SYRINGE SC SCH (07:54)
[2021-06-12] MEDS: Topiramate 100 MG TAB PO SCH ×2 (07:54→20:25)
[2021-06-12] MEDS: Aripiprazole 10 MG TAB PO SCH (07:54)
[2021-06-12] MEDS: Venlafaxine HCl XR 75 MG CAP PO SCH (07:54)
[2021-06-12] MEDS: Carbidopa/Levodopa CR 50-200 mg Tablet PO SCH ×3 (07:54→20:25)
[2021-06-12] MEDS: Acetaminophen 325 MG TAB PO PRN (18:07)
[2021-06-12] MEDS: Melatonin 3 MG TAB PO SCH (20:25)
[2021-06-12] MEDS: Mirtazapine 30 MG Soltab PO SCH (20:25)
[2021-06-13] MEDS: cefTRIAXone\\ROCEPHIN 1 GM in Sodium Chloride 0.9% 100 ML IVPB SCH (08:57)
[2021-06-13] MEDS: Venlafaxine HCl XR 75 MG CAP PO SCH (08:58)
[2021-06-13] MEDS: Carbidopa/Levodopa CR 50-200 mg Tablet PO SCH ×3 (08:58→20:25)
[2021-06-13] MEDS: Topiramate 100 MG TAB PO SCH ×2 (08:58→20:25)
[2021-06-13] MEDS: Aripiprazole 10 MG TAB PO SCH (08:58)
[2021-06-13] MEDS: Enoxaparin Sodium 40 MG/0.4 ML SYRINGE SC SCH (08:59)
[2021-06-13] MEDS: Melatonin 3 MG TAB PO SCH (20:25)
[2021-06-13] MEDS: Mirtazapine 30 MG Soltab PO SCH (20:25)
[2021-06-14] MEDS: cefTRIAXone\\ROCEPHIN 1 GM in Sodium Chloride 0.9% 100 ML IVPB SCH (08:23)
[2021-06-14] MEDS: Topiramate 100 MG TAB PO SCH ×2 (08:24→23:03)
[2021-06-14] MEDS: Aripiprazole 10 MG TAB PO SCH (08:24)
[2021-06-14] MEDS: Enoxaparin Sodium 40 MG/0.4 ML SYRINGE SC SCH (08:24)
[2021-06-14] MEDS: Venlafaxine HCl XR 75 MG CAP PO SCH (08:24)
[2021-06-14] MEDS: Carbidopa/Levodopa CR 50-200 mg Tablet PO SCH ×3 (08:24→23:03)
[2021-06-14] MEDS: Ondansetron PF 4 MG/2 ML Vial IVP PRN (21:58)
[2021-06-14] MEDS: Melatonin 3 MG TAB PO SCH (23:03)
[2021-06-14] MEDS: Mirtazapine 30 MG Soltab PO SCH (23:03)
[2021-06-15] MEDS: Carbidopa/Levodopa CR 50-200 mg Tablet PO SCH ×3 (08:58→21:34)
[2021-06-15] MEDS: Aripiprazole 10 MG TAB PO SCH (08:58)
[2021-06-15] MEDS: Venlafaxine HCl XR 75 MG CAP PO SCH (08:58)
[2021-06-15] MEDS: Topiramate 100 MG TAB PO SCH ×2 (08:59→21:35)
[2021-06-15] MEDS: Enoxaparin Sodium 40 MG/0.4 ML SYRINGE SC SCH (09:15)
[2021-06-15] MEDS: Sodium Chloride 0.9% 1,000 ML IV SCH (17:17)
[2021-06-15] MEDS: Ciprofloxacin 500 MG TAB PO SCH (20:34)
[2021-06-15] MEDS: Melatonin 3 MG TAB PO SCH (21:34)
[2021-06-15] MEDS: Acetaminophen 325 MG TAB PO PRN (21:34)
[2021-06-15] MEDS: Mirtazapine 30 MG Soltab PO SCH (21:37)
[2021-06-16] MEDS: Ciprofloxacin 500 MG TAB PO SCH ×2 (06:28→20:02)
[2021-06-16] MEDS: Sodium Chloride 0.9% 1,000 ML IV SCH (06:30)
[2021-06-16] MEDS: Enoxaparin Sodium 40 MG/0.4 ML SYRINGE SC SCH (08:14)
[2021-06-16] MEDS: Venlafaxine HCl XR 75 MG CAP PO SCH (08:15)
[2021-06-16] MEDS: Carbidopa/Levodopa CR 50-200 mg Tablet PO SCH ×3 (08:15→20:02)
[2021-06-16] MEDS: Aripiprazole 10 MG TAB PO SCH (08:15)
[2021-06-16] MEDS: Topiramate 100 MG TAB PO SCH ×2 (08:15→20:02)
[2021-06-16 08:20] LABS: #Eosinphils 0.1 thou/uL (0.0-0.7); #Monocytes 0.3 thou/uL (0.11-0.59); #Neutrophils 1.6 thou/uL (1.40-6.50); %Basophils 1.4 % (0.0-1.0); %Lymphocytes 33.4 % (21.0-51.0); %Neutrophils 54.2 % (42.0-75.0); Hemoglobin 11.9 g/dL (12.0-16.0); Mean Corpuscular Hemoglobin 33.3 pg (27.0-31.0); Mean Corpuscular Volume 97.8 fL (78.0-98.0); Platelet Count 194 thou/uL (130-400); RBC Distribution Width 12.9 % (11.5-14.5); Red Blood Cell (RBC) Count 3.56 mill/uL (4.20-5.40)
[2021-06-16 08:30] LABS: ALT (SGPT) Less than 7 U/L (8-55); AST (SGOT) 16 U/L (5-34); Albumin 3.7 g/dL (3.4-4.8); Alkaline Phosphatase 83 U/L (40-110); Anion Gap 12 mmol/L (10-20); BUN (Urea Nitrogen) 7 mg/dL (9.8-20.1); Bilirubin, Total 0.3 mg/dL (0.2-1.2); Calc. Creatinine Clearance 59 mL/min (70-130); Carbon Dioxide 25 mmol/L (23-31); Chloride 108 mmol/L (98-107); Globulin 2.1 g/dL (2.4-3.5); Glucose 91 mg/dL (83-110); Potassium 3.6 mmol/L (3.5-5.1); Protein, Total 5.8 g/dL (5.8-8.1); Sodium 141 mmol/L (136-145)
[2021-06-16] MEDS: Melatonin 3 MG TAB PO SCH (20:02)
[2021-06-16] MEDS: Mirtazapine 30 MG Soltab PO SCH (20:02)
[2021-06-16] MEDS: Megestrol Acetate 40 MG TAB PO SCH (20:02)
[2021-06-17] MEDS: Ciprofloxacin 500 MG TAB PO SCH ×2 (05:43→19:41)
[2021-06-17] MEDS: Megestrol Acetate 40 MG TAB PO SCH ×3 (07:57→19:41)
[2021-06-17] MEDS: Topiramate 100 MG TAB PO SCH ×2 (07:57→19:42)
[2021-06-17] MEDS: Carbidopa/Levodopa CR 50-200 mg Tablet PO SCH ×3 (07:57→19:41)
[2021-06-17] MEDS: Venlafaxine HCl XR 75 MG CAP PO SCH (07:57)
[2021-06-17] MEDS: Enoxaparin Sodium 40 MG/0.4 ML SYRINGE SC SCH (07:57)
[2021-06-17] MEDS: Aripiprazole 10 MG TAB PO SCH (07:57)
[2021-06-17] MEDS: Melatonin 3 MG TAB PO SCH (19:42)
[2021-06-17] MEDS: Mirtazapine 30 MG Soltab PO SCH (19:42)
[2021-06-18] MEDS: Ciprofloxacin 500 MG TAB PO SCH ×2 (05:38→20:27)
[2021-06-18] MEDS: Venlafaxine HCl XR 75 MG CAP PO SCH (07:48)
[2021-06-18] MEDS: Topiramate 100 MG TAB PO SCH ×2 (07:48→20:27)
[2021-06-18] MEDS: Aripiprazole 10 MG TAB PO SCH (07:48)
[2021-06-18] MEDS: Megestrol Acetate 40 MG TAB PO SCH ×3 (07:48→20:27)
[2021-06-18] MEDS: Enoxaparin Sodium 40 MG/0.4 ML SYRINGE SC SCH (07:48)
[2021-06-18] MEDS: Carbidopa/Levodopa CR 50-200 mg Tablet PO SCH ×3 (07:48→20:27)
[2021-06-18 12:38] LABS: SARS-CoV-2 PCR by NAA Not Detected (NotDetected)
[2021-06-18] MEDS: Melatonin 3 MG TAB PO SCH (20:27)
[2021-06-18] MEDS: Mirtazapine 30 MG Soltab PO SCH (20:44)
[2021-06-19] MEDS: Ciprofloxacin 500 MG TAB PO SCH (06:06)
[2021-06-19] MEDS: Enoxaparin Sodium 40 MG/0.4 ML SYRINGE SC SCH (07:50)
[2021-06-19] MEDS: Carbidopa/Levodopa CR 50-200 mg Tablet PO SCH ×3 (07:51→21:03)
[2021-06-19] MEDS: Megestrol Acetate 40 MG TAB PO SCH ×3 (07:51→21:02)
[2021-06-19] MEDS: Venlafaxine HCl XR 75 MG CAP PO SCH (07:51)
[2021-06-19] MEDS: Aripiprazole 10 MG TAB PO SCH (07:51)
[2021-06-19] MEDS: Topiramate 100 MG TAB PO SCH ×2 (07:51→21:02)
[2021-06-19] MEDS: Melatonin 3 MG TAB PO SCH (21:02)
[2021-06-19] MEDS: Mirtazapine 30 MG Soltab PO SCH (21:27)
[2021-06-20 07:55] LABS: #Eosinphils 0.1 thou/uL (0.0-0.7); #Lymphocytes 1.3 thou/uL (1.20-3.40); #Monocytes 0.3 thou/uL (0.11-0.59); #Neutrophils 3.8 thou/uL (1.40-6.50); %Basophils 0.6 % (0.0-1.0); %Eosinophils 1.5 % (0.0-10.0); %Lymphocytes 23.2 % (21.0-51.0); %Neutrophils 68.8 % (42.0-75.0); Hemoglobin 12.5 g/dL (12.0-16.0); Mean Corpuscular HGB CONC 33.2 g/dL (32.0-36.0); Mean Corpuscular Hemoglobin 32.6 pg (27.0-31.0); Mean Corpuscular Volume 98.2 fL (78.0-98.0); Mean Platelet Volume 8.1 fL (7.4-10.4); Platelet Count 240 thou/uL (130-400); RBC Distribution Width 13.1 % (11.5-14.5); Red Blood Cell (RBC) Count 3.85 mill/uL (4.20-5.40); White Blood Cell (WBC) Count 5.5 thou/uL (4.8-10.8)
[2021-06-20] MEDS: Carbidopa/Levodopa CR 50-200 mg Tablet PO SCH ×3 (07:59→21:12)
[2021-06-20] MEDS: Megestrol Acetate 40 MG TAB PO SCH ×3 (07:59→21:12)
[2021-06-20] MEDS: Aripiprazole 10 MG TAB PO SCH (07:59)
[2021-06-20] MEDS: Venlafaxine HCl XR 75 MG CAP PO SCH (08:00)
[2021-06-20] MEDS: Topiramate 100 MG TAB PO SCH ×2 (08:00→21:12)
[2021-06-20 08:05] LABS: INR-International Normal Ratio 1.1; PTT 31.2 sec (22.9-36.1); Prothrombin Time 14.5 sec (12.0-14.7)
[2021-06-20 08:12] LABS: ALT (SGPT) Less than 7 U/L (8-55); AST (SGOT) 16 U/L (5-34); Albumin 3.8 g/dL (3.4-4.8); Alkaline Phosphatase 84 U/L (40-110); Anion Gap 13 mmol/L (10-20); BUN (Urea Nitrogen) 11 mg/dL (9.8-20.1); Bilirubin, Total 0.3 mg/dL (0.2-1.2); Calc. Creatinine Clearance 57 mL/min (70-130); Calcium 9.1 mg/dL (7.8-10.44); Carbon Dioxide 20 mmol/L (23-31); Chloride 108 mmol/L (98-107); Globulin 2.3 g/dL (2.4-3.5); Glucose 79 mg/dL (83-110); Potassium 3.9 mmol/L (3.5-5.1); Protein, Total 6.1 g/dL (5.8-8.1); Sodium 137 mmol/L (136-145)
[2021-06-20] MEDS ORDERED: PROPOFOL 200 MG/20 ML VIAL ONE (09:42)
[2021-06-20] MEDS ORDERED: Ondansetron HCl/PF 4 MG/2 ML Vial IVP PRN (10:06)
[2021-06-20] MEDS ORDERED: Fentanyl 100 MCG/2 ML VIAL ONE (10:22)
[2021-06-20] MEDS ORDERED: Ibuprofen 200 MG TAB PO PRN (14:14)
[2021-06-20] MEDS: Ketorolac Tromethamine 30 MG/ML VIAL IVP PRN ×2 (15:44→21:24)
[2021-06-20] MEDS: Melatonin 3 MG TAB PO SCH (21:12)
[2021-06-20] MEDS: Mirtazapine 30 MG Soltab PO SCH (21:12)
[2021-06-21] MEDS: Topiramate 100 MG TAB PO SCH ×2 (08:16→20:35)
[2021-06-21] MEDS: Venlafaxine HCl XR 75 MG CAP PO SCH (08:16)
[2021-06-21] MEDS: Aripiprazole 10 MG TAB PO SCH (08:16)
[2021-06-21] MEDS: Carbidopa/Levodopa CR 50-200 mg Tablet PO SCH ×3 (08:16→20:34)
[2021-06-21] MEDS: Megestrol Acetate 40 MG TAB PO SCH ×3 (08:16→20:35)
[2021-06-21] MEDS: Ketorolac Tromethamine 30 MG/ML VIAL IVP PRN ×2 (14:20→20:35)
[2021-06-21] MEDS: Acetaminophen 325 MG TAB PO PRN (18:08)
[2021-06-21] MEDS: Melatonin 3 MG TAB PO SCH (20:34)
[2021-06-21] MEDS: Mirtazapine 30 MG Soltab PO SCH (20:35)
[2021-06-22] MEDS: Venlafaxine HCl XR 75 MG CAP PO SCH (08:23)
[2021-06-22] MEDS: Topiramate 100 MG TAB PO SCH ×2 (08:23→20:12)
[2021-06-22] MEDS: Megestrol Acetate 40 MG TAB PO SCH ×3 (08:23→20:12)
[2021-06-22] MEDS: Aripiprazole 10 MG TAB PO SCH (08:23)
[2021-06-22] MEDS: Carbidopa/Levodopa CR 50-200 mg Tablet PO SCH ×3 (08:24→20:12)
[2021-06-22] MEDS: Ketorolac Tromethamine 30 MG/ML VIAL IVP PRN ×2 (08:26→22:20)
[2021-06-22] MEDS ORDERED: Cepastat Lozenges 1 LOZ PO PRN (08:42)
[2021-06-22] MEDS ORDERED: GUAIFENESIN SF SOLN 200 MG/10 ML UDCUP PO PRN (08:42)
[2021-06-22] MEDS ORDERED: hydrALAZINE 20 MG/ML VIAL SLOW IVP PRN (08:42)
[2021-06-22] MEDS ORDERED: Bisacodyl 5 MG TAB PO PRN (08:42)
[2021-06-22] MEDS ORDERED: Calcium Carbonate 500 MG ChewTAB PER TUBE PRN (08:42)
[2021-06-22] MEDS ORDERED: Sodium Chloride 0.65% Nasal 44 ML BOT EA NARE PRN (08:42)
[2021-06-22] MEDS ORDERED: Artificial Tear Sol 15 ML BOT EA EYE PRN (08:42)
[2021-06-22] MEDS ORDERED: Loperamide HCl 2 MG CAP PO PRN (08:42)
[2021-06-22] MEDS ORDERED: Senokot S 8.6-50 MG TAB PO PRN (08:42)
[2021-06-22] MEDS ORDERED: Hydrocerin (Eucerin) Cream 120 gm Jar TOP PRN (08:42)
[2021-06-22] MEDS: Polyethylene Glycol 3350 17 GM Packet PO SCH (11:26)
[2021-06-22] MEDS: Acetaminophen 325 MG TAB PO PRN (16:57)
[2021-06-22] MEDS: Ondansetron PF 4 MG/2 ML Vial IVP PRN (18:12)
[2021-06-22] MEDS: Senokot 8.6 MG TAB PO SCH (20:11)
[2021-06-22] MEDS: Melatonin 3 MG TAB PO SCH (20:12)
[2021-06-22] MEDS: Mirtazapine 30 MG Soltab PO SCH (20:12)
[2021-06-22] MEDS: Donepezil HCl 10 MG TAB PO SCH (20:12)
[2021-06-23 07:43] LABS: #Basophils 0.1 thou/uL (0.0-0.2); #Eosinphils 0.1 thou/uL (0.0-0.7); #Lymphocytes 1.6 thou/uL (1.20-3.40); #Monocytes 0.4 thou/uL (0.11-0.59); #Neutrophils 2.6 thou/uL (1.40-6.50); %Basophils 1.1 % (0.0-1.0); %Eosinophils 2.5 % (0.0-10.0); %Lymphocytes 34.2 % (21.0-51.0); %Monocytes 7.3 % (0.0-10.0); Hemoglobin 12.4 g/dL (12.0-16.0); Mean Corpuscular HGB CONC 33.9 g/dL (32.0-36.0); Mean Corpuscular Hemoglobin 33.7 pg (27.0-31.0); Mean Corpuscular Volume 99.4 fL (78.0-98.0); Mean Platelet Volume 8.4 fL (7.4-10.4); Platelet Count 201 thou/uL (130-400); RBC Distribution Width 13.3 % (11.5-14.5); Red Blood Cell (RBC) Count 3.68 mill/uL (4.20-5.40); White Blood Cell (WBC) Count 4.8 thou/uL (4.8-10.8)
[2021-06-23] MEDS: Carbidopa/Levodopa CR 50-200 mg Tablet PO SCH ×3 (07:50→21:56)
[2021-06-23] MEDS: Polyethylene Glycol 3350 17 GM Packet PO SCH (07:50)
[2021-06-23] MEDS: Megestrol Acetate 40 MG TAB PO SCH ×3 (07:50→21:56)
[2021-06-23] MEDS: Venlafaxine HCl XR 75 MG CAP PO SCH (07:50)
[2021-06-23] MEDS: Topiramate 100 MG TAB PO SCH ×2 (07:50→21:56)
[2021-06-23] MEDS: Aripiprazole 10 MG TAB PO SCH (07:51)
[2021-06-23 08:10] LABS: Anion Gap 11 mmol/L (10-20); BUN (Urea Nitrogen) 8 mg/dL (9.8-20.1); Calc. Creatinine Clearance 59 mL/min (70-130); Calcium 9.1 mg/dL (7.8-10.44); Carbon Dioxide 21 mmol/L (23-31); Chloride 108 mmol/L (98-107); Glucose 89 mg/dL (83-110); Magnesium 2.1 mg/dL (1.6-2.6); Phosphorus 3.1 mg/dL (2.3-4.7); Potassium 4.3 mmol/L (3.5-5.1); Sodium 136 mmol/L (136-145)
[2021-06-23] MEDS: Ondansetron PF 4 MG/2 ML Vial IVP PRN (15:43)
[2021-06-23] MEDS: Senokot 8.6 MG TAB PO SCH (21:56)
[2021-06-23] MEDS: Donepezil HCl 10 MG TAB PO SCH (21:56)
[2021-06-23] MEDS: Melatonin 3 MG TAB PO SCH (21:56)
[2021-06-23] MEDS: clonazePAM 0.5 MG TAB PO PRN (21:56)
[2021-06-23] MEDS: Mirtazapine 30 MG Soltab PO SCH (21:57)
[2021-06-24] MEDS: Topiramate 100 MG TAB PO SCH ×2 (08:27→20:36)
[2021-06-24] MEDS: Venlafaxine HCl XR 75 MG CAP PO SCH (08:27)
[2021-06-24] MEDS: Carbidopa/Levodopa CR 50-200 mg Tablet PO SCH ×3 (08:27→20:36)
[2021-06-24] MEDS: Megestrol Acetate 40 MG TAB PO SCH ×3 (08:27→20:37)
[2021-06-24] MEDS: Aripiprazole 10 MG TAB PO SCH (08:27)
[2021-06-24] MEDS: Polyethylene Glycol 3350 17 GM Packet PO SCH (08:28)
[2021-06-24] MEDS: Senokot 8.6 MG TAB PO SCH (20:36)
[2021-06-24] MEDS: Melatonin 3 MG TAB PO SCH (20:36)
[2021-06-24] MEDS: Donepezil HCl 10 MG TAB PO SCH (20:36)
[2021-06-24] MEDS: clonazePAM 0.5 MG TAB PO PRN (20:36)
[2021-06-24] MEDS: Mirtazapine 30 MG Soltab PO SCH (20:36)
[2021-06-24] MEDS: Ketorolac Tromethamine 30 MG/ML VIAL IVP PRN (20:47)
[2021-06-25] MEDS: Topiramate 100 MG TAB PO SCH (08:11)
[2021-06-25] MEDS: Carbidopa/Levodopa CR 50-200 mg Tablet PO SCH (08:11)
[2021-06-25] MEDS: Megestrol Acetate 40 MG TAB PO SCH (08:11)
[2021-06-25] MEDS: Aripiprazole 10 MG TAB PO SCH (08:12)
[2021-06-25] MEDS: Polyethylene Glycol 3350 17 GM Packet PO SCH (08:12)
[2021-06-25] MEDS: Venlafaxine HCl XR 75 MG CAP PO SCH (08:12)
[2021-06-25 08:28] VITALS: BP 117/71; TEMP 98
== END 2021-06-25 09:24 | DRG 871 ==
LOC: ERS 16:24 → T4-A 19:48 → INTOOBSV 19:48 → OBSVTOIN 06-12 07:40
PROVIDERS: ADMIT Student in an Organized Health Care Education/Training Program; ATTEND Internal Medicine
PROC: 0DH63UZ Insertion of Feeding Device into Stomach, Percutaneous Approach (ICD-10-PCS; principal; 2021-06-20)
DX: A41.4 Sepsis due to anaerobes (principal); E43 Unspecified severe protein-calorie malnutrition; G92.8 Other toxic encephalopathy; N30.00 Acute cystitis without hematuria; E87.1 Hypo-osmolality and hyponatremia; R64 Cachexia; Z68.1 Body mass index [BMI] 19.9 or less, adult; R65.20 Severe sepsis without septic shock; Z66 Do not resuscitate; Z51.5 Encounter for palliative care; Z20.822 Contact with and (suspected) exposure to COVID-19; G20 Parkinson's disease; E86.0 Dehydration; F41.9 Anxiety disorder, unspecified; F32.A Depression, unspecified; J45.20 Mild intermittent asthma, uncomplicated; R13.12 Dysphagia, oropharyngeal phase; R51.9 Headache, unspecified; E87.5 Hyperkalemia; F43.10 Post-traumatic stress disorder, unspecified; B96.1 Klebsiella pneumoniae [K. pneumoniae] as the cause of diseases classified elsewhere; Z88.6 Allergy status to analgesic agent; Z86.718 Personal history of other venous thrombosis and embolism; Z88.5 Allergy status to narcotic agent; Z88.8 Allergy status to other drugs, medicaments and biological substances; Z91.09 Other allergy status, other than to drugs and biological substances; Z79.899 Other long term (current) drug therapy; Z98.890 Other specified postprocedural states; Z90.710 Acquired absence of both cervix and uterus; Z90.89 Acquired absence of other organs
CPT/HCPCS: 0240U; 36415; 51701; 70450; 71045; 80048; 80053; 81001; 82550; 83605; 83735; 83880; 84100; 84443; 85025; 85610; 85730; 87040; 87077; 87086; 87186; 93005; 96365; 96372; G0378; J0696; J1650; J1885; J2250; J2405; J2704; J3010; J3490; J7050; S0179; U0003; U0005